=== PATIENT | male | born 1960 | race Caucasian/White ===

== ENCOUNTER 2023-12-19 06:12 | Inpatient (IN) ==
--- NOTE | 2023-12-10 10:15 | Anesthesiology Consultation ---
Date of Service December 10, 2023 Assessment & Plan (1) Encounter for pre-operative examination: - last Trulicity dose 12/10/23. Case discussed with Dr. Khan who is assigned anesthesiologist per schedule. He advised contacting Dr. Farrell regarding if procedure can be postponed until patient is 7 days from last dose or if he feels it needs to proceed as scheduled 12/16/23. Per Chey with Dr. Farrell's office, he advised procedure can be postponed several days and it is now being done 12/18/23. She states that she informed patient he is to hold Trulicity until procedure 12/18/23. - cardiology office visit 11/19/23 [facility]: "...At the time of the patient's recent visit, he had described episodes of snoring, witnessed by his spouse. He also notes some degree of daytime somnolence. Given his history of snoring, daytime somnolence, and now the diagnosis of atrial fibrillation, recommend proceeding with workup for obstructive sleep apnea. Patient was agreeable to proceeding with a home sleep study...12/29/2022 he had been seen in routine follow-up by primary care and was noted to have an irregular rhythm. EKG confirmed the presence of rate controlled atrial fibrillation. A Zio Patch was worn for 5 days at which time 100% atrial fibrillation burden observed, with average rate of 106 beats per minute...11/05/2023 he had not noticed any subjective symptoms. Afterward however he had been moving some firewood around when he was wearing the Zio patch in notice some chest tightness with exertion...feeling an irregular heart rhythm when he lays down to go to sleep at night...metoprolol succinate 25 milligrams daily as well as Eliquis 5 milligrams twice daily...notes no additional chest discomfort since starting the metoprolol...ventricular rate was mildly elevated especially with activity on his recent Zio patch, and he was since started metoprolol succinate. Continue metoprolol succinate. [id number] score is 3 for risk factors of age (he turns 64 in June), hypertension, and diabetes...tolerating the Eliquis well. Recommend proceeding with a trial of direct current cardioversion...intermittent chest discomfort with physical activity last month. Improved since the addition of metoprolol. This may have been related to atrial fibrillation with rapid ventricular response, but it off is concerning for perhaps on masking underlying coronary heart disease. Recommend proceeding with nuclear stress test. In his particular case given his development of atrial fibrillation believe a low intensity exercise/pharmacologic protocol would be suitable..." - Per development editor on 12/10/23: No known infectious disease contacts, current infectious disease symptoms in past 10 days or COVID positive test result in the past 30 days. Chart Review Chart Review: entry level marketing representative initiated History Surgery Operation Date: 12/16/23 07:15 Proposed Procedures p Cardioversion Freelance Photographer w/Anesthesia - Sylvester Farrell DO Height/Weight Height: 6 ft 1 in Weight: 106.594 kg Allergies Allergy/AdvReac Type Severity Reaction Status Date / Time Penicillins AdvReac Severe RASH A Verified 12/10/23 09:34 CHILD Medications Home Medications Medication Instructions Recorded Confirmed Last Taken MULTIPLE VITAMINS W/ MINERALS 1 tab PO DAILY ##0 12/13/13 12/10/23 Unknown (MULTI COMPLETE) apixaban 5 mg tablet (Eliquis) 5 mg PO BID 12/10/23 12/10/23 Unknown aspirin 81 mg capsule 81 mg PO DAILY 12/10/23 12/10/23 Unknown dulaglutide 1.5 mg/0.5 mL 0.75 mg subcut WK 12/10/23 12/10/23 Unknown subcutaneous pen injector (Trulicity) empagliflozin 25 mg tablet 25 mg PO QAM 12/10/23 12/10/23 Unknown (Jardiance) losartan 25 mg tablet 25 mg PO QAM 12/10/23 12/10/23 Unknown meloxicam 15 mg tablet 15 mg PO DAILY PRN Pain 12/10/23 12/10/23 Unknown metformin 1,000 mg tablet 1,000 mg PO BID 12/10/23 12/10/23 Unknown metoprolol tartrate 25 mg tablet 25 mg PO QAM 12/10/23 12/10/23 Unknown rosuvastatin 40 mg tablet 40 mg PO QAM 12/10/23 12/10/23 Unknown Past Medical History Medical History (Updated 12/10/23 @ 10:01 by Fatimah Walker PA-C) A-fib recent onset; follows w/ Dr Farrell Ascending aorta enlargement Chest discomfort intermittent, upcoming stress test ordered by S cardio 01/2024 Diabetes NIDDM Heart murmur since childhood History of colon cancer 1999- s/p colon resection and chemo History of COVID-19 2021- no hosp; resolved Hx of deep venous thrombosis 1999- after colon resection Suspected sleep apnea snoring, witnessed apneas, daytime somnolence-HST ordered by [facility] cardio Past Surgical History Surgical History History of colon resection 2000 Hx of colonoscopy Hx of rotator cuff surgery left Hx of squamous cell carcinoma excision lip Social History Smoking Status: Never smoker Do You Dip or Chew Tobacco: No Hx Alcohol Use: Yes alcohol intake frequency: a few times a month Hx Substance Use: No substance use type: does not use Testing Laboratory Results 11/05/2023 WBC: 5.2 H/H: PLATELETS: 192,000 10/22/23 SODIUM: 141 POTASSIUM: 4.7 CHLORIDE: 106 CO2: 24 BUN: 15 CREATININE: 0.8 GLUCOSE: 110 A1c: 7.1% 11/05/23 TSH: 2.9 Hepatic panel: WNL Electrocardiogram Date: 11/19/23 Afib, rate 72 bpm Echocardiogram Date: 01/06/23 EF 55-59% Normal LV wall motion Borderline cLVH Mild mitral regurgitation Mild tricuspid regurgitation Proximal ascending thoracic aorta mildly enlarged 4.3 cm Grade I diastolic dysfunction Stress Test Date: 10/23/18 Exercise METS 11 MPHR 99% Negative for inducible ischemia EF 55-59% Normal LV wall motion Mild cLVH Mild mitral regurgitation Aortic root is mildly enlarged at 3.8 cm Proximal ascending thoracic aorta is mildly enlarged at 4.3 cm Grade I diastolic dysfunction Other Testing vehicle monitor technician 10/28/23 Atrial Fibrillation occurred continuously (100% burden), ranging from 63- 194 bpm (avg of 106 bpm). Isolated VEs were rare (<1.0%), VE Couplets were rare (<1.0%), and no VE Triplets were present. No patient marker or diary entries were submitted
--- NOTE | 2023-12-18 19:44 | History & Physical Report ---
Date of Service December 18, 2023 Assessment & Plan (1) Persistent atrial fibrillation: Plan: * Patient presents for direct-current cardioversion. * Informed consent obtained, patient elects to proceed. History of Present Illness Primary Care Provider: Sylvester Farrell DO Mr Beaulieu had recently been found to be in atrial fibrillation and a recent routine appointment. He has been on Eliquis since prescribed on 11/11/2023, along with metoprolol. Arrangements were made for elective direct-current cardioversion with him having been on uninterrupted anticoagulation for over 4 weeks. History is notable for mild enlargement of the proximal ascending aorta, 4.[address] performed January,, 4.3 cm on echocardiogram December,, and he is due for a repeat CT scan in January, Allergies Allergy/AdvReac Type Severity Reaction Status Date / Time Penicillins AdvReac Severe RASH A Verified 12/10/23 09:34 CHILD Home Medications Medication Instructions Recorded Confirmed Type MULTIPLE VITAMINS W/ MINERALS 1 tab PO DAILY ##0 12/13/13 12/10/23 History (MULTI COMPLETE) apixaban 5 mg tablet (Eliquis) 5 mg PO BID 12/10/23 12/19/23 History aspirin 81 mg capsule 81 mg PO DAILY 12/10/23 12/10/23 History dulaglutide 1.5 mg/0.5 mL 0.75 mg subcut WK 12/10/23 12/10/23 History subcutaneous pen injector (Trulicity) empagliflozin 25 mg tablet 25 mg PO QAM 12/10/23 12/10/23 History (Jardiance) losartan 25 mg tablet 25 mg PO QAM 12/10/23 12/10/23 History meloxicam 15 mg tablet 15 mg PO DAILY PRN Pain 12/10/23 12/10/23 History metformin 1,000 mg tablet 1,000 mg PO BID 12/10/23 12/10/23 History metoprolol tartrate 25 mg tablet 25 mg PO QAM 12/10/23 12/10/23 History rosuvastatin 40 mg tablet 40 mg PO QAM 12/10/23 12/10/23 History Past Med/Surg History Medical History (Updated 12/18/23 @ 19:44 by Sylvester Farrell DO) Ascending aorta enlargement Chest discomfort intermittent, upcoming stress test ordered by S cardio 01/2024 Suspected sleep apnea snoring, witnessed apneas, daytime somnolence-HST ordered by [facility] cardio Hx of deep venous thrombosis 1999- after colon resection History of COVID-19 2021- no hosp; resolved Heart murmur since childhood Diabetes NIDDM A-fib recent onset; follows w/ Dr Farrell History of colon cancer 1999- s/p colon resection and chemo Surgical History Hx of squamous cell carcinoma excision lip Hx of rotator cuff surgery left Hx of colonoscopy History of colon resection 1999 Social History Smoking Status: Never smoker Second Hand Exposure: No; Do You Dip or Chew Tobacco: No; Tobacco Cessation Education Requested by Patient: No Hx Alcohol Use: Yes Hx Substance Use: No Preferred Language: Bengali Communication Ability: Effective Etymology Professor Required: No Beliefs That Will Affect Care: None Current Living Situation: Spouse Other Information That Helps Us Care for You: No Feels Safe at Home: Yes Safety Concerns: Feels Safe At This Time Assistive Devices: Glasses Physical Exam Physical Exam: Pulse Resp BP Pulse Ox O2 Del Method 121 H 14 120/80 97 Room Air 12/19/23 06:56 12/19/23 06:56 12/19/23 06:56 12/19/23 06:56 12/19/23 06:56 General: no acute distress and stated age Eyes: conjunctiva are pink and non-injected, sclera clear Neck: normal jugular venous pulse, no hepatojugular reflux Chest: normal shape and normal respiratory effort Lungs: clear to auscultation and percussion Cardiac Exam: -Irregular rhythm, no murmurs, rubs, or gallops, no jugular venous distention Abdomen: abdomen soft, non-tender, no abnormal masses and no hepatosplenomegaly Musculoskeletal: no gait disturbance, no weakness Extremities: no edema and no cyanosis Neuro:awake, conversant, follows commands, no focal motor deficits Psych: appropriate affect and insight. Results & Data Results & Data Laboratory Results 10/22/23 11:38 Sodium: 141 Potassium: 4.7 Chloride: 106 CO2: 24 BUN: 15 Creatinine: 0.8 Estimated Glomerular Filtration Rate: >90 Anion Gap: 11 Glucose: 110 Calcium: 9.6 Estimated Average Glucose: 157 (H) 11/05/23 11:00 WBC: 5.28 HGB: 15.3 HCT: 47.2 MCV: 95.7 PLT: 192 Diagnostic Findings Echocardiogram performed 12/2022 revealed normal LVEF in the range of 55 to 59%, mild mitral regurgitation
[2023-12-19] MEDS ORDERED: PROPOFOL IV EMULSION 10 MG/ML 20 ML VIAL IV ONE (06:54)
[2023-12-19] MEDS ORDERED: ePHEDrine sulfate 50 MG/ML AMP IV PRN (07:12)
[2023-12-19] MEDS ORDERED: ATROPINE SULFATE 0.1 MG/ML 10ML SYR IV PRN (07:12)
--- NOTE | 2023-12-19 07:20 | History & Physical Bridge Note ---
Date of Service December 19, 2023 History & Physical Bridge Note I have examined the patient, reviewed the History & Physical and in the interval since the performance of the History & Physical I have noted the following changes of clinical significance: no changes noted. Most recent Eliquis dose was last night at 10 pm. He denies any recent missed doses.
[2023-12-19] MEDS ORDERED: APIXABAN 5 MG TABLET PO ONE (07:30)
--- NOTE | 2023-12-19 07:34 | Post Operative Brief Note ---
Cardiology Brief Post Op Date of Surgery December 19, 2023 Pre & Post Diagnosis Operation Date: 12/19/23 07:15 Procedure Preprocedure diagnosis: Persistent atrial fibrillation Postprocedure diagnosis: Unsuccessful direct-current cardioversion Direct-current cardioversion procedure: After informed consent was obtained a timeout was performed the patient was sedated at the assistance of the anesthesia service. The patient received a total of 3 countershocks of 200 J, 250 J, and 300 J respectively which were unsuccessful and the patient remained in atrial fibrillation. Plan: Continue anticoagulation with Eliquis and metoprolol. Will discuss options including consideration of rate control and anticoagulation or considering antiarrhythmic therapy. Acetylene Cylinder Packing Mixer Sylvester Farrell DO Isolation Washer none Estimated Blood Loss 0 Findings Consistent with Post-Op Diagnosis Anesthesia Type MAC Complications none
--- NOTE | 2023-12-19 07:55 | Anesthesiology Progress Note ---
Date of Service December 19, 2023 Anesthesia Post Procedure Vital Signs Vital Signs: Pulse Resp BP Pulse Ox O2 Del Method 12/19/23 06:56 121 H 14 120/80 97 Room Air Transfer of Care Handoff Completed per policy Notes Mental Status: alert / awake / arousable and participated in evaluation Patient Amnestic to Procedure: Yes Nausea / Vomiting: adequately controlled Pain: adequately controlled Airway Patency, RR, SpO2: stable & adequate BP & HR: stable & adequate Hydration State: stable & adequate Anesthetic Complications: no major complications apparent and Pt Satisfied with anesthetic care
--- NOTE | 2023-12-19 09:01 | Communication Note ---
Date of Service: December 19, 2023 Patient underwent cardioversion, has remained in atrial fibrillation despite 3 countershocks. After discussion with the patient and his spouse, Everardo, patient would prefer to stay in the hospital for antiarrhythmic medication initiation. Options include sotalol or dofetilide. His most recent chemistry panel performed a month ago revealed normal kidney function, estimated GFR by the modified Cockcroft-Gault formula is 139.86 mL/min. EKG performed today post cardioversion revealed atrial fibrillation at 77 bpm with corrected QT interval 423 ms Plan: I contacted admissions and requested a telemetry bed, indication, symptomatic atrial fibrillation, need for initiation of antiarrhythmic therapy I have called the patient's outpatient pharmacy, [facility], and the pharmacist is helping determine the patient's [id number] cost for dofetilide.
[2023-12-19] MEDS ORDERED: PHARMACY GLYCEMIC MGMT CONSULT PRN (09:33)
[2023-12-19] MEDS ORDERED: SILVER SULFADIAZINE 1% CR 50 GM JAR EXT ONE (09:40)
[2023-12-19] MEDS ORDERED: EMPAGLIFLOZIN 25 MG TAB PO SCH (09:45)
[2023-12-19 09:55] LABS: Hematocrit (blood only) 46.8 % (42.0-52.0); Hemoglobin 15.3 g/dl (14.0-18.0); Mean Corpuscular Hemoglobin 30.1 pg (25.0-34.0); Mean Corpuscular Hgb Conc 32.7 g/dL (32.0-36.0); Mean Corpuscular Volume 91.9 fL (80.0-100.0); Mean Platelet Volume 9.8 fL (9.4-12.4); Platelet Count 170 K/uL (130-400); RDW Standard Deviation 43.3 fL (36.4-46.3); Red Blood Count 5.09 M/uL (4.70-6.10); White Blood Count 5.06 K/ul (4.8-10.8)
[2023-12-19 10:21] LABS: INR 0.9 (0.9-1.1); Partial Thromboplastin Ratio 1.1; Partial Thromboplastin Time 30 Seconds (21-31); Prothrombin Time 10.4 Seconds (9.0-12.0)
[2023-12-19] MEDS ORDERED: GLUCOSE 10 TAB/TUBE PO PRN (11:30)
[2023-12-19] MEDS ORDERED: CARBOHYDRATES FOR HYPOGLYCEMIA PO PRN (11:30)
[2023-12-19] MEDS ORDERED: GLUCOSE 40% GEL 15 GM TUBE PO PRN (11:30)
[2023-12-19] MEDS ORDERED: GLUCAGON FOR INJ 1 MG VIAL IM PRN (11:30)
[2023-12-19] MEDS ORDERED: DEXTROSE 50% 50 ML SYRINGE IV PRN (11:30)
[2023-12-19 11:57] LABS: Albumin Globulin Ratio 1.8 (0.9-2); Albumin Level 4.1 gm/dl (3.4-5.0); Bilirubin,Total 0.5 mg/dl (0.2-1.0); Calcium 9.3 mg/dl (8.6-10.3); Creatinine Clr Calc Pharmacy 105.1 ml/min; Est GFR (African American) 102.9 ml/min; Est GFR (Non-African American) 88.8 ml/min; Globulin 2.3 gm/dl (2.5-4.0); Potassium 4.7 mmol/L (3.5-5.1); Total Protein 6.4 gm/dl (6.0-8.3)
[2023-12-19] MEDS ORDERED: DOFETILIDE 125 MCG CAPSULE PO STA (12:00)
--- NOTE | 2023-12-19 12:00 | Communication Note ---
Date of Service: December 19, 2023 I called the patient's outpatient pharmacy and the [id number] cost for dofetilide is affordable for the patient. Lab work within normal limits with normal magnesium level, normal kidney function. As previously noted, corrected QT interval within normal limits. Proceed with dofetilide 500 mcg first dose now, with repeat EKG 2 hours after first dose.
[2023-12-19] MEDS: ROSUVASTATIN CALCIUM 20 MG TAB PO SCH (12:15)
[2023-12-19] MEDS: LOSARTAN POTASSIUM 25 MG TAB PO SCH (12:16)
[2023-12-19] MEDS: ASPIRIN 81 MG ECTAB PO SCH (12:16)
[2023-12-19] MEDS: METOPROLOL TARTRATE 25 MG TAB PO SCH (12:17)
[2023-12-19] MEDS: INSULIN ASPART PER UNIT CHARGE SC SCH ×3 (12:22→20:35)
--- NOTE | 2023-12-19 12:51 | Pharmacy Report ---
Pharmacy Glycemic Short Note 2 - Date of Service December 19, 2023 - Glycemic Short BSG Results (Last 24 hours): 12/19/23 12/19/23 09:36 11:22 Glucose 136 H POC Glucose 171 H OUTPATIENT ANTIDIABETIC REGIMEN: * Trulicity 0.75 mg weekly, empagliflozin 25 mg daily * A1c pending ASSESSMENT: * Mr. Beaulieu is admitted for initiation of dofetilide after remaining in A. fib following cardioversion attempt. Will begin novolog with weight based parameters between stress of 1 and 2. * Lantus to be added if BSGs trend upward, will add scale. * Overnight checks. PLAN FOR INPATIENT GLYCEMIC CONTROL: * Hold outpatient oral diabetes medications * Basal insulin * Lantus 0/10/20 units SQ x1 * Bolus insulin * NovoLog per scale ACHS or Q6hrs while NPO * Goal Range: Low 110 mg/dL - High 140 mg/dL * Correction Factor: 30 mg/dL/unit * Nutritional / Prandial insulin per carb ratio of 1 unit per 10 grams CHO consumed
--- NOTE | 2023-12-19 14:18 | Consultation ---
Date of Consultation December 19, 2023 Assessment & Plan (1) Persistent atrial fibrillation: (2) DMII (diabetes mellitus, type 2): (3) HLD (hyperlipidemia): (4) Hx of squamous cell carcinoma: (5) Osteoarthritis, hand: (6) B12 deficiency: Plan Pt is a 63yoM with PMHx significant for persistent atrial fibrillation, DMII, HLD, colon cancer s/p partial colectomy and chemotherapy, Hx of SCC of lower lip, B12 deficiency and OA of the hands admitted for direct-current cardiove rsion of his atrial fibrillation. Persistent Atrial Fibrillation Per pt, diagnosed at a routine pcp appt about a month ago Followed up with cardiology and is presenting for cardioversion s/p unsuccessful cardioversion on 12/19/23 Subsequently started on Tikosyn by Cardiology, also on metoprolol tartrate 25mg daily Anticoagulation with Eliquis 5mg BID Further management by Cardiology/primary team DMII Pt on Trulicity, Jardiance and metformin at home Hold home meds AM [id number] pending Basal with ISS insulin regimen while hospitalized -started on basal glargine 5mg BID, can titrate up as needed -ISS with aspart, CF 40, CR 14, goal glucose 100-140 Pt notes he is on ARB for renoprotection in the setting of DMII, (NOT HTN, states never had this dx) Continue home losartan HLD Continue statin Hx of colon cancer s/p partial colectomy and chemotherapy per pt Diagnosed in 1999, completed treatment in 2020 States he undergoes surveillance with a colonoscopy [id number] Due for f/u in 2023, no noted issues since Hx of SCC of lower lip Dx about 7 yrs ago per pt Stable Hx of b12 deficiency On multivitamin with b12 AM b12 level pending Hand OA On meloxicam PRN at home Holding PRN tylenol ordered DVT prophylaxis: On Eliquis Diet:HH/DMII CODE STATUS: Full code Dispo: per primary team Thank you for this consultation. We will follow the patient with you during their hospital stay. You can reach a member of the [facility] Hospitalist Team 09/06 via the hospitalist role on tiger text. History of Present Illness Requesting Physician: Sylvester Farrell DO Reason for Consultation: Atrial Fibrillation, DMII co-management Attending Physician: Sylvester Farrell DO History of Present Illness Pt is a 63yoM with PMHx significant for persistent atrial fibrillation, DMII, HLD, colon cancer s/p partial colectomy and chemotherapy, Hx of SCC of lower lip, B12 deficiency and OA of the hands admitted for direct-current cardioversion of his atrial fibrillation. Hx obtained from patient and who is sitting at bedside. He states that he was at a routine visit with his pcp some time before Hasmukh when he was noted to be in atrial fibrillation. States he did not have symptoms at that time. Was referred to Cardiology and was admitted for cardioversion. He had the cardioversion done today but it was unsuccessful after 3 shocks. Has been started on the medication Tikosyn and is undergoing further monitoring. He denies any symptoms at this time. States he has been eating and drinking and tolerating food well. Allergies Allergy/AdvReac Type Severity Reaction Status Date / Time Penicillins AdvReac Severe RASH A Verified 12/10/23 09:34 CHILD Home Medications Medication Instructions Recorded Confirmed Type MULTIPLE VITAMINS W/ MINERALS 1 tab PO DAILY ##0 12/13/13 12/19/23 History (MULTI COMPLETE) apixaban 5 mg tablet (Eliquis) 5 mg PO BID 12/10/23 12/19/23 History aspirin 81 mg capsule 81 mg PO DAILY 12/10/23 12/19/23 History dulaglutide 1.5 mg/0.5 mL 1.5 mg subcut WK 12/10/23 12/19/23 History subcutaneous pen injector (Trulicity) empagliflozin 25 mg tablet 25 mg PO QAM 12/10/23 12/19/23 History (Jardiance) losartan 25 mg tablet 25 mg PO QAM 12/10/23 12/19/23 History meloxicam 15 mg tablet 15 mg PO DAILY PRN Pain 12/10/23 12/19/23 History metformin 1,000 mg tablet 1,000 mg PO BID 12/10/23 12/19/23 History metoprolol tartrate 25 mg tablet 25 mg PO QAM 12/10/23 12/10/23 History rosuvastatin 40 mg tablet 40 mg PO QAM 12/10/23 12/19/23 History Patient History Medical History (Updated 12/19/23 @ 18:14 by Deena Diaz MD) Ascending aorta enlargement Chest discomfort intermittent, upcoming stress test ordered by S cardio 01/2024 Suspected sleep apnea snoring, witnessed apneas, daytime somnolence-HST ordered by [facility] cardio Hx of deep venous thrombosis 1999- after colon resection History of COVID-19 2021- no hosp; resolved Heart murmur since childhood Diabetes NIDDM A-fib recent onset; follows w/ Dr Farrell History of colon cancer 1999- s/p colon resection and chemo Surgical History Hx of squamous cell carcinoma excision lip Hx of rotator cuff surgery left Hx of colonoscopy History of colon resection 1999 Social History Smoking Status: Never smoker Second Hand Exposure: No; Do You Dip or Chew Tobacco: No; Tobacco Cessation Education Requested by Patient: No Hx Alcohol Use: Yes Hx Substance Use: No Preferred Language: Barbadian Communication Ability: Effective Motor Driver Required: No Beliefs That Will Affect Care: None Current Living Situation: Spouse Other Information That Helps Us Care for You: No Feels Safe at Home: Yes Safety Concerns: Feels Safe At This Time Assistive Devices: Glasses Review of Systems Review of Systems: All systems reviewed & are unremarkable except as noted in HPI & below Physical Exam Physical Exam: General: Alert, oriented. No acute distress Skin: No noted rashes or bruises Psych: Appropriate mood and affect Neuro: No gross deficits HEENT: NC/AT CV: Irregular rate and rhythm Resp: Breath sounds clear bilaterally, no increased effort of breathing. Abdomen: Soft, nontender, nondistended. No guarding. No organomegaly appreciated. Extremities: No edema in lower extremities bilaterally. Results & Data Vital Signs (Past 12 Hours) Vital Signs Temp Pulse Pulse Resp BP BP Pulse Ox 12/19/23 13:45 99 H 18 12/19/23 13:30 88 16 12/19/23 13:30 117/81 12/19/23 13:15 82 16 12/19/23 13:15 115/81 12/19/23 13:00 82 16 12/19/23 13:00 109/80 12/19/23 13:00 37.1 C 12/19/23 12:45 78 17 12/19/23 12:30 89 19 12/19/23 12:30 114/70 12/19/23 12:15 100/76 12/19/23 12:15 94 H 17 12/19/23 12:00 93 H 12 12/19/23 12:00 123/88 12/19/23 11:45 90 11 L 12/19/23 11:45 122/78 12/19/23 11:30 97 H 21 12/19/23 11:30 120/84 12/19/23 11:15 129/75 12/19/23 11:15 92 H 13 12/19/23 11:03 92 H 16 12/19/23 11:03 109/82 12/19/23 11:00 12/19/23 11:00 36.7 C 93 H 20 109/82 97 12/19/23 11:00 78 12/19/23 11:00 36.7 C 12/19/23 09:30 82 14 152/90 H 96 12/19/23 08:30 82 14 152/90 H 96 12/19/23 08:15 82 14 152/90 H 96 12/19/23 08:00 75 14 150/90 H 96 12/19/23 07:45 87 14 152/90 H 96 12/19/23 06:56 121 H 14 120/80 97 O2 Del Method 12/19/23 13:45 12/19/23 13:30 12/19/23 13:30 12/19/23 13:15 12/19/23 13:15 12/19/23 13:00 12/19/23 13:00 12/19/23 13:00 12/19/23 12:45 12/19/23 12:30 12/19/23 12:30 12/19/23 12:15 12/19/23 12:15 12/19/23 12:00 12/19/23 12:00 12/19/23 11:45 12/19/23 11:45 12/19/23 11:30 12/19/23 11:30 12/19/23 11:15 12/19/23 11:15 12/19/23 11:03 12/19/23 11:03 12/19/23 11:00 Room Air 12/19/23 11:00 Room Air 12/19/23 11:00 12/19/23 11:00 12/19/23 09:30 Room Air 12/19/23 08:30 Room Air 12/19/23 08:15 Room Air 12/19/23 08:00 Room Air 12/19/23 07:45 Room Air 12/19/23 06:56 Room Air
--- NOTE | 2023-12-19 14:36 | Communication Note ---
Date of Service: December 19, 2023 Repeat EKG performed 2 hours after first dose of dofetilide, 500 mcg. Ongoing atrial fibrillation observed with QT interval of 444 ms, stable compared to previous of 423 ms. This increases less than 15% and we will therefore continue dofetilide 500 mcg every 12 hours, next dose due at 9 AM on. Serial EKG orders placed to be 11 AM and 2302 hours after each dose of dofetilide. The patient medication instruction information sheet with regards to Tikosyn/dofetilide was provided to patient. Patient educated with regards to need to avoid avoid taking medications that would prolong the QT interval when combined with Tikosyn/dofetilide.
--- OUTSIDE RECORDS SUMMARY | 2023-12-19 15:36 | External Medical Summary | Summary of Care ---
Author Name Unknown Organization [facility] Address [address] [facility] [address] Phone [phone] Care Team Providers Care Metal Precision Machine Assembler Name Role Phone Roscoe Hookison Yissel AGUILLON Primary Care Provider [phone] Encounter Details Date Type Department Care Team (Late st Contact Info) Description 12/10/2023 Telephone Cardiology, [facility] [address] [place] [address] Sylvester Farrell DO [address] [place] [address] Allergies Active Allergy Reactions Criticality Noted Date Comments Lisinopril Cough Medium 08/04/2014 Penicillins 11/30/2010 documented as of this encounter (statuses as of 12/10/2023) Medications Medication Sig Dispensed Refills Start Date End Date Status ASPIRIN 81 MG PO TABS one tablet daily 0 Active triamcinolone acetonide (ARISTOCORT) 0.1 % creamIndications:Dry skin Apply topically to affected area 2 times a day. To affected area. 15 g 5 10/08/2017 Active Ketoconazole 2 % cream Apply topically to affected area as needed for Itching. 15 g 1 07/06/2020 Active Centrum Silver 50+Men Oral Tablet Take by mouth. 0 Active OneTouch Ultra Blue In Vitro Strip (Glucose Blood)Indications:Typ e 2 diabetes mellitus with hemoglobin A1c goal of less than 7.0% ([facility]) Test blood sugar up to three times daily as directed 300 Strip 3 08/29/2022 Active OneTouch Delica Plus [id number]: Type 2 diabetes mellitus with hemoglobin A1c goal of less than 7.0% (HCC) Use to test blood glucose directed 3 times daily daily 300 Each 3 08/29/2022 Active metFORMIN HCl 1000 MG Oral Tablet (Glucophage)Indicatio ns:Type 2 diabetes mellitus with hemoglobin A1c goal of less than 7.0% (HCC) TAKE ONE TABLET BY MOUTH TWICE DAILY WITH MEALS.( MORNING AND EVENING MEALS) 180 Tablet 3 12/09/2022 Active Jardiance 25 MG Oral Tablet (Empagliflozin)Indica tions:Type 2 diabetes mellitus with hemoglobin A1c goal of less than 7.0% (HCC) TAKE 1 TABLET BY MOUTH ONCE DAILY 90 Tablet 3 05/10/2023 Active Meloxicam 15 MG Oral TabletIndications:Marija lio osteoarthritis of first carpometacarpal joint of left hand Take 1 Tablet by mouth in the morning. for pain.. 90 Tablet 3 05/12/2023 Active Losartan Potassium 25 MG Oral Tablet (Cozaar)Indications:D yslipidemia, goal LDL below 70,Ascending aorta enlargement (HCC) Take 1 Tablet by mouth in the morning. 90 Tablet 1 07/14/2023 Active Rosuvastatin Calcium 40 MG Oral Tablet (Crestor)Indications: Dyslipidemia, goal LDL below 70,Ascending aorta enlargement (HCC) Take 1 Tablet by mouth in the morning. 90 Tablet 1 07/14/2023 Active Dulaglutide 1.5 MG/0.5ML Subcutaneous Solution Pen-injector (Trulicity)Indication s:Type 2 diabetes mellitus with hemoglobin A1c goal of less than 7.0% (HCC) Inject 1.5 mg under the skin once a week. 6 mL 3 10/28/2023 Active Clindamycin HCl 150 MG Oral Capsule (Cleocin) As needed for dental procedures 0 10/21/2023 Active Metoprolol Succinate ER 25 MG Oral Tablet Extended Release 24 Hour (toPROL XL) Take 1 Tablet by mouth in the morning. 30 Tablet 5 11/11/2023 Active Apixaban 5 MG Oral Tablet (Eliquis) Take 1 Tablet by mouth in the morning and 1 Tablet before bedtime. 180 Tablet 3 11/11/2023 Active documented as of this encounter (statuses as of 12/10/2023) Active Problems Problem Noted Date Diagnosed Date Type 2 diabetes mellitus with diabetic polyneuro rosetta 08/29/2022 B12 deficiency 02/25/2022 Primary osteoarthritis of fi rst carpometacarpal joint of left hand 07/06/2020 Hx of squamous cell carcinoma of skin 03/23/2020 Ascending aorta enlargement 12/20/2019 Dilated aortic root 12/20/2019 Obesity, Class I, BMI 30.0-34.9 (see actual BMI) 04/06/2014 Type 2 diabetes mellitus wit h hemoglobin A1c goal of less than 7.0% 02/03/2014 Overview: ICD-10 update of inactive term Dermatofibroma of right lower leg 07/21/2012 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 10/21/2010 Dyslipidemia, goal LDL below 70 documented as of this encounter (statuses as of 12/10/2023) Resolved Problems Problem Noted Date Diagnosed Date Resolved Date Screening PSA (prostate specific antigen) 01/17/2021 01/17/2021 Encounter for long-term (cur rent) use of medications 06/17/2019 08/29/2022 Overview: Metformin Lip lesion 07/15/2018 10/09/2018 Thrush 06/18/2018 10/09/2018 Supraspinatus tendinitis, left 06/18/2018 10/09/2018 Dyslipidemia 06/05/2018 06/17/2019 Asthma, mild persistent 06/12/201505/18 Supraspinatus tendinitis 06/12/2015 Asthma, mild persistent 02/09/201505/18 Nevus 10/12/2014 06/12/2015 Overview: 0.5 cm lesion of right earlobe - excisonal biopsy with desruction after 10/07/14 Earlobe lesion 10/07/2014 10/12/2014 Overview: 0.5 cm lesion of right earlobe - excisonal biopsy with desruction after 10/07/14 Deltoid bursitis 06/06/2014 06/12/2015 Overview: right shoulder Dyslipidemia, goal LDL below 70 04/06/2014 06/05/2018 Elevated glucose 02/02/2014 04/06/2014 Dry skin 02/02/2014 06/05/2018 Tendinitis of thumb 02/02/2014 04/06/20 14 Overview: Left Bronchitis, complicated 08/03/201301/15 Obesity, Class I, BMI 30.0-3 4.9 (see actual BMI) 02/11/2012 04/06/2014 LUMBAR DISC DISEASE WITH S1 NERVE ROOT PAIN (RESOLVED) 02/12/2011 08/12/2012 LUMBAR DISC DISEASE WITH S1 NERVE ROOT PAIN 01/29/2011 02/12/2011 NEVI OF CHEST WALL AND SCALP S/P REMOVAL 11/2712/26/19 11 08/12/2012 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 10/21/2010 10/27/2018 II A HLP (goal LDL below 130) 10/21/2010 04/06/2014 DVT S/P CHEMO 2000 10/21/2010 2 PULMONARY EMBOLUS S/P CHEMO 2000 10/21/2010 08/12/2012 Screening for prostate cancer 10/21/2010 01/29/2011 documented as of this encounter (statuses as of 12/10/2023) Immunizations Name Administration Dates Next Due COVID-19 mRNA, LNP-s, No Pre serve, 2-Dose Series (Stellarcasa SA) 07/05/2022,09/24/2021,02/03/2021,12/19 Hepatitis B, 20+ yrs 02/09/2015,10/07/2014,06/06 Pneumococcal Conjugate Vacci ne, 20-valent ([id number]) 04/10/2023 Pneumococcal Polysaccharide PPV23 (Pneumovax) 06/06/2014 Seasonal Influenza Virus Vac cine, Unspecified Formulation 09/11/2021 Seasonal Influenza, PF, 6 M & above, IM , (FluLaval or Fluzone) 08/09/2022,08/17/2020,08/31/2019,08/17 Seasonal Influenza, Split, I IV3, With Preserve, Inj 08/31/2017,09/03/2016,08/05/2015,08/17,08/31/2013,08/31/2012,09/05/20 11,08/31/2010 09/02/2015 TDAP (age 10 and older)(Boostrix) 10/28/2023, Zoster Vaccine Recombinant (Shingrix) 11/27/2020 ,09/18/2020 documented as of this encounter Social History Tobacco Use Types Packs/Day Years Used Date Smoking Tobacco: Never Smokeless Tobacco: Former Snuff Quit: 11/30/1987 Alcohol Use Standard Drinks/Week Comments Yes 0 (1 standard drink = 0.6 oz pur e alcohol) rarely PHQ-2 Answer Date Recorded PHQ Adult Total Score 0 04/10/2023 Hunger Vital Sign Answer Date Recorded Within the past 12 months, y ou worried that your food would run out before you got the money to buy more. Never true 04/10/20 23 Within the past 12 months, t he food you bought just didn't last and you didn't have money to get more. Never true 04/10/2023 Sex and Gender Information Value Date Recorded Sex Assigned at Male 04/10/2023 11:00 AM EDT Gender Identity Male 04/10/2023 11:00 AM EDT Sexual Orientation Straight 04/10/2023 11 :00 AM EDT Job Start Date Occupation Industry Not on file Not on file Not on file documented as of this encounter Miscellaneous Notes * Telephone Encounter - Chey Perez LPN - 12/10/2023 10:08 AM EST Spoke with Dr Farrell via tiger text. Patient rescheduled for DCCV on 12/18/23 @ 745am at [facility]. Patient wasa advised to hold trulicity until after procedure * Telephone Encounter - Chey Perez LPN - 12/10/2023 9:51 AM EST Patient currently scheduled for Cardioversion on 12/16/23 at [facility]. [place] pre anesthesia calling asking for recommendation for procedure from Dr Farrell, patient took Trulicity this morning. Now recommended that patients hold Trulicity for 1 week prior to procedure. [facility] recommending to postpone procedure unless otherwise stated by physician documented in this encounter Plan of Treatment Upcoming Encounters Date Type Department Care Team (Late st Contact Info) Description 01/20/2024 10:30 AM EST Cardiac Studies [address] Studies [address] [place] [address] 01/22/2024 8:00 AM EST Imaging [facility] 2nd Floor Cardiology, [place] [address] [place] [address] Gw, Excess Time Radiology [address] [place] [address] 03/08/2024 11:30 AM EDT Office Visit Cardiology, [facility] [address] [place] [address] Sylvester Farrell, [address] [place] [address] 03/30/2024 8:00 AM EDT Office Visit Pharmacy [address], [place] [address] [place] [address] Sonia, [facility] [address] [place] [address] 04/29/2024 12:00 PM EDT Office Visit Family Practice [address], [place] [address] [place] [address] Hayes Pierre PA-C [address] [place] [address] Health Maintenance Due Date Last Done Comments COVID-19 Vaccine ( season) 2023 07/05/2022, 09/24/2021, 02/03/2021, Additional history exists Influenza Vaccine (FLU shot) (#1) 2023 08/09/2022, 09/11/2021, 08/17/2020, Additional history exists Albumin/Creatinine Ratio 04/04/2024 023, 08/23/2022, 02/13/2022, Additional history exists B-12 04/04/2024 04/04/2023, 10/05/2022, 02/13/2022, Additional history exists Depression Screening 04/10/2024 04/10/2023, 06/17/20 16 Diabetic Foot Exam 04/10/2024 04/10/2023, 0 08/16/2021, 07/06/2020, Additional history exists Diabetic Eye Exam 04/11/2024 04/11/2023, , 03/28/2021, Additional history exists HbA1c 04/22/2024 10/22/2023, 03/17, 08/23/2022, Additional history exists COLONOSCOPY-EVERY 3 YRS AGES 18-100 06/12/2024 06/12/2021, 01/27/2018, 11/01/2014, Additional history exists GFR 10/22/2024 10/22/2023, 03/17, 08/23/2022, Additional history exists Lipid Panel 10/22/2028 10/22/2023, 03/17, 08/23/2022, Additional history exists DTaP,Tdap,and Td Vaccines (3 - Td or Tdap) 10/28/2033 10/28/2023, 08/03/2013 Hepatitis B Completed 02/09/2015, 09/18, 06/06/2014 Zoster Vaccines Completed 11/27/2020, 09/18/2020 Pneumococcal Vaccine: Pediatrics (0 to 5 Years) and At-Risk Patients (6 to 64 Years) Completed 04/10/2023, 06/06/2014 GARDASIL-HPV IMMUNIZATION SERIES Aged Out No longer eligible based on patient's age to complete this topic MENINGOCOCCAL (MENACTRA/MENVEO) Aged Out No longer eligible based on patient's age to complete this topic documented as of this encounter Medical Devices Implanted Type Area Fly Maker Device Identifier Shelf Expiration Date Model / Serial / Lot Biocomposite Swivelock Suture [place] Implanted:Qty: 2 on 11/18/2018 by Panchito Wright DO at OR [facility] Left: Shoulder 12/17/2019 [id number] / / [id number] documented as of this encounter Care Teams Metal Precision Machine Assembler Relationship Specialty Start Date End Date Angelique Hook DO PCP - General Family Medicine 02/26/22 documented as of this encounter
--- OUTSIDE RECORDS SUMMARY | 2023-12-19 15:36 | External Medical Summary | Summary of Care ---
Author Name Unknown Organization [facility] Address [address] [place] [address] Phone [phone] Care Team Providers Care Distribution Driver Name Role Phone Hook, Angelique Barryvarghese Primary Care Provider [phone] Encounter Details Date Type Department Care Team (Late st Contact Info) Description 11/11/2023 Telephone Family Practice [address] [place] [address] Hayes Pierre PA-C [address] [place] [address] Allergies Active Allergy Reactions Criticality Noted Date Comments Lisinopril Cough Medium 08/04/2014 Penicillins 11/30/2010 documented as of this encounter (statuses as of 11/11/2023) Medications Medication Sig Dispensed Refills Start Date [...] hemoglobin A1c goal of less than 7.0% ([facility]) Test blood sugar up to three times daily as directed 300 Strip 3 08/29/2022 Active OneTouch Delica Plus [id number]: Type 2 diabetes mellitus with hemoglobin A1c [...] as of this encounter (statuses as of 11/11/2023) Active Problems Problem Noted Date Diagnosed Date [...] as of this encounter (statuses as of 11/11/2023) Resolved Problems Problem Noted Date Diagnosed Date [...] as of this encounter (statuses as of 11/11/2023) Immunizations Name Administration Dates Next Due COVID-19 mRNA, LNP-s, No Pre serve, 2-Dose Series (Shopeando) 07/05/2022,09/24/2021,02/03/2021,12/19 Hepatitis B, 20+ yrs 02/09/2015,10/07/2014,06/06 Pneumococcal Conjugate Vacci ne, 20-valent ([id number]) 04/10/2023 Pneumococcal Polysaccharide PPV23 (Pneumovax) 06/06/2014 Seasonal [...] encounter Miscellaneous Notes * Telephone Encounter - Priscilla Mullen LPN - 11/11/2023 3:32 PM EST Spoke with pt , confirmed pt had spoken with cardiology and was just started on Eliquis and Metoprolol today. * Telephone Encounter - Hayes Pierre PA-C - 11/11/2023 3:13 PM EST Aware of these findings. 100% AFib with average rate just above 100 beats per minute. He was completely asymptomatic at the time of my last visit. Okay to wait until he sees installment agent next week. Please just confirm that he has started an anticoagulant. documented in this encounter Plan of Treatment Upcoming Encounters Date Type Department Care Team (Late st Contact Info) Description 11/19/2023 10:00 AM EST Office Visit Cardiology, [facility] [address] [facility] [place] [address] Sylvester Farrell, [address] [facility] [place] [address] 01/20/2024 10:30 AM EST Cardiac Studies Cardiac Studies [place] [address] [place] [address] 03/08/2024 11:30 AM EDT Office Visit Cardiology, [facility] [address] [place] [address] Sylvester Farrell, [address] [place] [address] 03/30/2024 8:00 AM EDT Office Visit Pharmacy [place] [address] [place] [address] Sonia, [facility] [address] [place] [address] 04/29/2024 12:00 PM EDT Office Visit [facility] [place] [address] [place] [address] Hayes Pierre PA-C [address] [place] [address] Health Maintenance Due Date Last Done Comments COVID-19 Vaccine ( season) 2023 07/05/2022, 09/24/2021, 02/03/2021, Additional history exists Influenza Vaccine (FLU shot) (#1) 2023 08/09/2022, 09/11/2021, 08/17/2020, Additional history exists Albumin/Creatinine Ratio 04/04/2024 023, 08/23/2022, 02/13/2022, Additional history exists B-12 04/04/2024 04/04/2023, 1005/2022, 02/13/2022, Additional history exists Depression Screening 04/10/2024 [...] this encounter Medical Devices Implanted Type Area Event Executive Device Identifier Shelf Expiration Date Model / Serial / Lot Biocomposite Swivelock Suture [place] Implanted:Qty: 2 on 11/18/2018 by Panchito Wright DO at OR [facility] Left: Shoulder 12/17/2019 [id number] / / [id number] documented as of this encounter Care Teams Distribution Driver Relationship Specialty Start Date End Date Angelique Hook DO PCP - General Family Medicine 02/26/22 documented as of this encounter
--- OUTSIDE RECORDS SUMMARY | 2023-12-19 15:36 | External Medical Summary | Summary of Care ---
Author Name Unknown Organization [facility] Address [address] [place] [address] Phone [phone] Care Team Providers Care Watch And Clock Maker And Repairer Name Role Phone HookRoscoeAngelique Yissel AGUILLON Primary Care Provider [phone] Reason for Referral * Precert (Within 10 days (routine)) - Pending Review Specialty Diagnoses / Procedures Referred By Destiney alexander Referred To Contact Radiology Diagnoses Persistent atrial fibrillation (HCC) Chest pain, unspecified type Procedures NM MYOCARD PERF IMG SPECT MULT STUDIES WITH PHARM INTERV Sylvester Farrell DO [address] [place] [address] Referral ID Status Reason Start Date Expiration Date Visits Requested Visits Authorized [id number] Pending Review Precert 11/19/2023 999 999 Reason for Visit * Reason Comments Follow Up Encounter Details Date Type Department Care Team (Late st Contact Info) Description 11/19/2023 10:00 AM EST Office Visit Cardiology, [facility] [address] [place] [address] Sylvester Farrell DO [address] [place] [address] Persistent atrial fibrillation (HCC)*; Ascending aorta enlargement (HCC); HTN, goal below 130/80; Aortic valve sclerosis; Dyslipidemia, goal LDL below 70; Chest pain, unspecified type; Snoring; Obstructive sleep apnea syndrome Allergies Active Allergy Reactions Criticality Noted Date Comments Lisinopril Cough Medium 08/04/2014 Penicillins 11/30/2010 documented as of this encounter (statuses as of 11/19/2023) Medications Medication Sig Dispensed Refills Start Date [...] A1c goal of less than 7.0% (HCC) Test blood sugar up to three times daily as directed 300 Strip 3 08/29/2022 Active OneTouch Delica Plus [id number]: Type 2 diabetes mellitus with hemoglobin A1c [...] as of this encounter (statuses as of 11/19/2023) Active Problems Problem Noted Date Diagnosed Date [...] as of this encounter (statuses as of 11/19/2023) Resolved Problems Problem Noted Date Diagnosed Date [...] as of this encounter (statuses as of 11/19/2023) Immunizations Name Administration Dates Next Due COVID-19 mRNA, LNP-s, No Pre serve, 2-Dose Series (TUBE) 07/05/2022,09/24/2021,02/03/2021,12/19 Hepatitis B, 20+ yrs 02/09/2015,10/07/2014,06/06 Pneumococcal Conjugate Vacci ne, 20-valent ([id number]) 04/10/2023 Pneumococcal Polysaccharide PPV23 (Pneumovax) 06/06/2014 Seasonal [...] on file documented as of this encounter Last Filed Vital Signs Vital Sign Reading Time Taken Comments Blood Pressure 122/84 11/19/2023 9:56 AM EST Pulse 72 11/19/2023 9:56 AM EST Temperature - - Respiratory Rate 18 11/19/2023 9:56 AM EST Oxygen Saturation - - Inhaled Oxygen Concentration - - Weight 106.6 kg (235 lb) 11/19/2023 9:56 AM EST Height - - Body Mass Index 30.58 10/28/2023 9:43 AM EST documented in this encounter Progress Notes * Sylvester Farrell, DO - 11/19/2023 10:12 AM EST 11/19/2023 Cardiology Follow Up CHIEF COMPLAINT: Follow up, recent diagnosis of atrial fibrillation SUBJECTIVE: Buster Beaulieu is a 63 year old year old male who had initially been seen in cardiology consultation by the undersigned in 2018 due to concerns of an abnormal preoperative EKG prior to leftrotator cuff repair surgery. An exercise stress echocardiogram performed at that time was negative for ischemia. He has maintained follow-up with Cardiology due to issues with mildly elevated blood pr essure in the setting of type 2 diabetes mellitus, dyslipidemia, and mild enlargement of the proximal ascending aorta in the range of 4.2 to 4.3 centimeters per recent imaging studies. On 10/28/2023 he had been seen in routine follow-up by primary care and was noted to have an irregular rhythm. EKG confirmed the presence of rate controlled atrial fibrillation. A Zio Patch was worn for 5 days at which time 100% atrial fibrillation burden observed, with average rate of 106 beats per minute. He stated that prior to the appointment on 11/05/2023 he had not noticed any subjective symptoms. Afterward however he had been moving some firewood around when he was wearing the Zio patch in noticesome chest tightness with exertion. He also notes feeling an irregular heart rhythm when he lays down to go to sleep at night. On 11/11/2023 he started metoprolol succinate 25 milligrams daily as well as Eliquis 5 milligrams twice daily. He notes no additional chest discomfort since starting the metoprolol. He is tolerating the Eliquis well. He has received a rebate card in the Eliquis has been affordable. Extensive ROS: All systems reviewed & are unremarkable except as noted in HPI & below Cardiovascular (chest pain/palpitations/fluttering/diaphoresis/dyspnea on exertion/paroxysmally nocturnal dyspnea):Negative Family History: Father at age 96, pacemaker in his 80's, otherwise no heart disease Mother of complication of DM in her 60's Siblings: 2 sisters and a brother, healthy Past Surgical History: Resection of colon carcinoma, 1999 Removal of basal cell carcinoma below lip, August 2018 Social History: Socioeconomic History Marital status: Spouse name: Leticia Occupational History CPA Tobacco Use Smoking status: Never Smoker Smokeless tobacco: Former User Types: Snuff Review of patient's allergies indicates: Allergen Reactions Lisinopril Cough Penicillins Current Outpatient Medications Medication Sig Dispense Refill ASPIRIN 81 MG PO TABS one tablet daily triamcinolone acetonide (ARISTOCORT) 0.1 % cream Apply topically to affected area 2 times a day. Toaffected area. 15 g 5 Ketoconazole 2 % cream Apply topically to affected area as needed for Itching. 15 g 1 Centrum Silver 50+Men Oral Tablet Take by mouth. OneTouch Ultra Blue In Vitro Strip (Glucose Blood) Test blood sugar up to three times daily as directed 300 Strip 3 OneTouch Delica Plus [id number] Use to test blood glucose directed 3 times daily daily 300 Each 3 metFORMIN HCl 1000 MG Oral Tablet (Glucophage) TAKE ONE TABLET BY MOUTH TWICE DAILY WITH MEALS.( MORNING AND EVENING MEALS) 180 Tablet 3 Jardiance 25 MG Oral Tablet (Empagliflozin) TAKE 1 TABLET BY MOUTH ONCE DAILY 90 Tablet 3 Meloxicam 15 MG Oral Tablet Take 1 Tablet by mouth in the morning. for pain.. 90 Tablet 3 Losartan Potassium 25 MG Oral Tablet (Cozaar) Take 1 Tablet by mouth in the morning. 90 Tablet 1 Rosuvastatin Calcium 40 MG Oral Tablet (Crestor) Take 1 Tablet by mouth in the morning. 90 Tablet 1 Dulaglutide 1.5 MG/0.5ML Subcutaneous Solution Pen-injector (Vindicia) Inject 1.5 mg under the skin once a week. 6 mL 3 Clindamycin HCl 150 MG Oral Capsule (Cleocin) As needed for dental procedures Metoprolol Succinate ER 25 MG Oral Tablet Extended Release 24 Hour (toPROL XL) Take 1 Tablet by mouth in the morning. 30 Tablet 5 Apixaban 5 MG Oral Tablet (Eliquis) Take 1 Tablet by mouth in the morning and 1 Tablet before bedtime. 180 Tablet 3 No current facility-administered medications for this visit. OBJECTIVE/PHYSICAL EXAMINATION: BP 122/84 | Pulse 72 | Resp 18 | Wt 106.6 kg (235 lb) | BMI 30.58 kg/m | BSA 2.35 m General: no acute distress and stated age Eyes: conjunctiva are pink and non-injected, sclera clear Neck: normal jugular venous pulse, no hepatojugular reflux Chest: normal shape and normal respiratory effort Lungs: clear to auscultation , no rales rhonchi or wheezing Cardiac Exam: - irregular, 1/6 SM Abdomen: abdomen soft, non-tender, no abnormal masses and no hepatosplenomegaly Musculoskeletal: no gait disturbance, no weakness Extremities: no edema and no cyanosis Neuro: grossly normal exam Psych: appropriate affect and insight. Data: EKG performed today 11/19/2023 and interpreted independently: Atrial fibrillation at 72 beats per minute, lateral J-point elevation, relatively unchanged compared to previous Echo 12/2022 The examination is adequate to evaluate the referral indication. The qualitative LV ejection fraction is 55-59% (normal). The LV wall thickness is borderline increased (concentric). Mild mitral regurgitation is present. The left atrium is normal sized (< 35 ml/m^2). The aortic root is normal sized. The proximal ascending thoracic aorta is mildly enlarged. (4.3 cm) Compared to prior study of 01/16/21, there is no significant change. Chest CT report reviewed dated January 2021: Ascending aortic aneurysm measuring up to 42 millimeter. Results for orders placed or performed in visit on 10/22/23 LIPID PANEL WITH DIRECT LDL IF TG IS HIGH Result Value Ref Range Triglycerides 78 <=174 mg/dL Cholesterol 138 <200 mg/dL HDL Cholesterol 38 (L) >39 mg/dL Non-HDL Cholesterol 100 <=159 mg/dL LDL Cholesterol 84 <=129 mg/dL Latest Reference Range & Units 10/22/23 11:38 Sodium 135 - 146 mmol/L 141 Potassium 3.5 - 5.1 mmol/L 4.7 Chloride 98 - 107 mmol/L 106 CO2 22 - 32 mmol/L 24 BUN 6 - 20 mg/dL 15 Creatinine 0.6 - 1.2 mg/dL 0.8 Estimated Glomerular Filtration Rate >=60 mL/min >90 Anion Gap 7 - 15 mmol/L 11 Glucose 70 - 120 mg/dL 110 Calcium 8.4 - 10.2 mg/dL 9.6 Estimated Average Glucose <126 mg/dL 157 (H) (H): Data is abnormally high ASSESSMENT / PLAN: 63 year old year old male Persistent atrial fibrillation (HCC) (Primary) The natural history and pathophysiology of atrial fibrillation were discussed at length with the patient and his spouse. His ventricular rate was mildly elevated especially with activity on his recent Zio patch, and he was since started metoprolol succinate. Continue metoprolol succinate. [id number] score is 3 for risk factors of age (he turns 64 in June), hypertension, and diabetes. His hemoglobin as assessed earlier this month was within normal limits and he was tolerating the Eliquis well. Recommend proceeding with a trial of direct current cardioversion. Patient agreeable. This will be scheduled to be performed with me at [facility] in late November, or early December, after he has been on 4 weeks of uninterrupted anticoagulation. Chest Pain Patient noted intermittent chest discomfort with physical activity last month. Improved since the addition of metoprolol. This may have been related to atrial fibrillation with rapid ventricular response, but it off is concerning for perhaps on masking underlying coronary heart disease. Recommend proceeding with nuclear stress test. In his particular case given his development of atrial fibrillation believe a low intensity exercise/pharmacologic protocol would be suitable. Ascending aorta enlargement (HCC) Keep plans for repeat echocardiogram scheduled for January, HTN, goal below 130/80 Continue losartan and metoprolol, current doses Aortic valve sclerosis Follow-up echocardiogram as already scheduled. Dyslipidemia, goal LDL below 70 Continue rosuvastatin 40 milligrams daily. DISPOSITION: Follow Up: Return in about 2 months (around 01/18/2024) for Clinic Visit. | For: Clinic Visit | Check-out note: Cardioversion in 3 weeks, nuclear stress within 1-6 weeks (before or after cardioversion), home sleep test Sylvester Farrell, DO Cardiology, [facility] [address] [facility] [place] [address] This chart was completed in part utilizing [employer] Speech Voice Recognition Software. Grammatical errors, random word insertions, prounoun errors, and incomplete sentences are an occasional consequence of this system due to software limitations, ambient noise, and hardware issues. Any formal questions or concerns about the content, text, or information contained within the body of this dictation should be directly addressed to the provider for clarification. documented in this encounter Procedure Notes * Sylvester Farrell DO - 11/19/2023 9:59 AM ESTAssociated Order(s): EKG REASON FOR STUDY: atrial fibrillation CONCLUSIONS: Atrial fibrillation Abnormal ECG When compared with ECG of 28-OCT-2023 10:14, No significant change was found Ventricular Rate: 72 Atrial Rate: 250 QRS Duration: 90 QT/QTc: 366/400 ms P-R-T [place]: 0 : 24 : 37 degrees documented in this encounter Nursing Notes * Chey Perez LPN - 11/19/2023 9:56 AM EST Examination Room: 10 Name: Buster Beaulieu Date of : (1960) Reason for Visit: Follow up Interim Hospitalization(s): Denies Problems/Concerns: Denies Chest Pain/SOB: Denies My [facility] is a way you can talk to your provider online through e-mail. Would you like to sign up? I can activate it for you? ALREADY ACTIVE Patient was instructed to not get up on the exam table until directed and assisted by their provider; patient is to remain seated in the chair/ wheelchair/ exam table for fall prevention and safety reasons. Patient is aware to have assistance to step down off exam table with personnel. Patient voiced full comprehension of instructions. documented in this encounter Plan of Treatment Upcoming Encounters Date Type Department Care Team (Late st Contact Info) Description 01/20/2024 10:30 AM EST Cardiac Studies Cardiac Studies [address] [place] [address] 01/22/2024 8:00 AM EST Imaging [facility] 2nd Floor Cardiology, [place] [address] [place] [address] Gw, Excess Time Radiology [address] [place] [address] 03/08/2024 11:30 AM EDT Office Visit Cardiology, [facility] [address] [place] [address] Sylvester Farrell, DO [address] [place] [address] 03/30/2024 8:00 AM EDT Office Visit Pharmacy [facility] [place] [address] [place] [address] [place] [facility] [address] [place] [address] 04/29/2024 12:00 PM EDT Office Visit Family Practice [address], [place] [address] [place] [address] Hayes Pierre PA-C [address] [place] [address] Scheduled Orders Name Type Priority Associated Diagnoses Orde r Schedule HEART ELECTROCONVERSION, EXTERNAL Procedures Routine Persistent atrial fibrillation (HCC) Expected: 11/20/2023, Expires: 12/20/2024 NM MYOCARD PERF IMG SPECT MULT STUDIES WITH PHARM INTERV Cardiology Routine Persistent atrial fibrillation (HCC) Chest pain, unspecified type Expected: 11/19/2023 (Approximate), Expires: 12/20/2024 SLEEP TEST W/ TYPE 3 PORTABLE MONITOR, 4 CHANNEL; AT HOME Procedures Routine Persistent atrial fibrillation (HCC) Snoring Obstructive sleep apnea syndrome Ordered: 11/19/2023 Health Maintenance Due Date Last Done Comments [...] this encounter Medical Devices Implanted Type Area Currency Exchange Specialist Device Identifier Shelf Expiration Date Model / Serial / Lot Biocomposite Swivelock Suture [place] Implanted:Qty: 2 on 11/18/2018 by Panchito Wright DO at OR [facility] Left: Shoulder 12/17/2019 [id number] / / [id number] documented as of this encounter Procedures Procedure Name Priority Date/Time Associated Diagnosis Comments CO ECG ROUTINE ECG W/LEAST 12 LDS W/I&R Routine 11/19/2023 9:59 AM EST Persistent atrial fibrillation (HCC) documented in this encounter Results * EKG (11/19/2023 9:59 AM EST) 11/19/2023 9:59 AM EST Narrative Procedure Note Sylvester Farrell DO - 11/19/2023 9:59 AM EST REASON FOR STUDY: atrial fibrillation CONCLUSIONS: Atrial fibrillation Abnormal ECG When compared with ECG of 28-OCT-2023 10:14, No significant change was found Ventricular Rate: 72 Atrial Rate: 250 QRS Duration: 90 QT/QTc: 366/400 ms P-R-T [place]: 0 : 24 : 37 degrees Sylvester Farrell DO EKG [facility] documented in this encounter Visit Diagnoses Diagnosis Persistent atrial fibrillation (HCC)- Primary Atrial fibrillation Ascending aorta enlargement (HCC) Other specified disorders of arteries and arterioles HTN, goal below 130/80 Unspecified essential hypertension Aortic valve sclerosis Aortic valve disorders Dyslipidemia, goal LDL below 70 Other and unspecified hyperlipidemia Chest pain, unspecified type Snoring Other dyspnea and respiratory abnormality Obstructive sleep apnea syndrome Obstructive sleep apnea (adult) (pediatric) documented in this encounter Care Teams Watch And Clock Maker And Repairer Relationship Specialty Start Date End Date Angelique Hook DO PCP - General Family Medicine 02/26/22 documented as of this encounter"
--- OUTSIDE RECORDS SUMMARY | 2023-12-19 15:36 | External Medical Summary | Summary of Care ---
Author Name Unknown Organization [facility] Address [address] [facility] [address] Phone [phone] Care Team Providers Care Cafeteria Attendant Name Role Phone Roscoe Hookison Yissel AGUILLON Primary Care Provider [phone] Encounter Details Date Type Department Care Team (Late st Contact Info) Description 12/10/2023 Telephone Cardiology, [facility] [address] [place] [address] Sylvester Farrell DO [address] [place] [address] Allergies Active Allergy Reactions Criticality Noted Date [...] hemoglobin A1c goal of less than 7.0% ([facility]) Test blood sugar up to three times daily as directed 300 Strip 3 08/29/2022 Active OneTouch Delica Plus [id number]: Type 2 diabetes mellitus with hemoglobin A1c [...] mRNA, LNP-s, No Pre serve, 2-Dose Series (MYOS) 07/05/2022,09/24/2021,02/03/2021,12/19 Hepatitis B, 20+ yrs 02/09/2015,10/07/2014,06/06 Pneumococcal Conjugate Vacci ne, 20-valent ([id number]) 04/10/2023 Pneumococcal Polysaccharide PPV23 (Pneumovax) 06/06/2014 Seasonal [...] for DCCV on 12/18/23 @ 745am at [facility]. Patient wasa advised to hold trulicity until after procedure * Telephone Encounter - Chey Perez LPN - 12/10/2023 9:51 AM EST Patient currently scheduled for Cardioversion on 12/16/23 at [facility]. [place] pre anesthesia calling asking for recommendation for procedure from Dr Farrell, patient took Trulicity this morning. Now recommended that patients hold Trulicity for 1 week prior to procedure. [facility] recommending to postpone procedure unless otherwise stated by physician documented in this encounter Plan of Treatment Upcoming Encounters Date Type Department Care Team (Late st Contact Info) Description 01/20/2024 10:30 AM EST Cardiac Studies [address] [place] [address] [place] [address] 01/22/2024 8:00 AM EST Imaging [facility] 2nd Floor Cardiology, [place] [address] [place] [address] Gw, Excess Time Radiology [address] [place] [address] 03/08/2024 11:30 AM EDT Office Visit Cardiology, [facility] [address] [place] [address] Sylvester Farrell, [address] [place] [address] 03/30/2024 8:00 AM EDT Office Visit Pharmacy [address], [place] [address] [place] [address] [place], [facility] [address] [place] [address] 04/29/2024 12:00 PM EDT Office Visit Family Practice [address], [place] [address] [place] [address] Hayes Pierre PA-C [address] [place] [address] Health Maintenance Due Date Last Done Comments [...] this encounter Medical Devices Implanted Type Area Lifestyle Coordinator Device Identifier Shelf Expiration Date Model / Serial / Lot Biocomposite Swivelock Suture [place] Implanted:Qty: 2 on 11/18/2018 by Panchito Wright DO at [facility] Left: Shoulder 12/17/2019 [id number] / / [id number] documented as of this encounter Care Teams Cafeteria Attendant Relationship Specialty Start Date End Date Angelique Hook DO PCP - General Family Medicine 02/26/22 documented as of this encounter
--- OUTSIDE RECORDS SUMMARY | 2023-12-19 15:36 | External Medical Summary | Summary of Care ---
Author Name Unknown Organization [facility] Address [address] [facility] [address] Phone [phone] Care Team Providers Care Swage Tender Name Role Phone Roscoe Hookison Yissel AGUILLON Primary Care Provider [phone] Reason for Visit * Reason Onset Date Comments Appointment 11/19/2023 Encounter Details Date Type Department Care Team (Late st Contact Info) Description 11/19/2023 Telephone Cardiology, [facility] [address] [place] [address] Sylvester Farrell DO [address] [place] [address] Appointment Allergies Active Allergy Reactions Criticality Noted Date [...] Strip 3 08/29/2022 Active OneTouch Delica Plus [id number]: Type 2 diabetes mellitus with hemoglobin A1c [...] mRNA, LNP-s, No Pre serve, 2-Dose Series ([employer] 07/05/2022,09/24/2021,02/03/2021,12/19 Hepatitis B, 20+ yrs 02/09/2015,10/07/2014,06/06 Pneumococcal Conjugate Vacci ne, 20-valent ([id number]) 04/10/2023 Pneumococcal Polysaccharide PPV23 (Pneumovax) 06/06/2014 Seasonal [...] encounter Miscellaneous Notes * Telephone Encounter - Saundra Cantu OSA - 11/19/2023 10:55 AM EST Nuc stress test needed per Dr. Farrell. documented in this encounter Plan of Treatment Upcoming Encounters Date Type Department Care Team (Late st Contact Info) Description 01/20/2024 10:30 AM EST Cardiac Studies [address]iac Studies [address] [place] [address] 03/08/2024 11:30 AM EDT Office Visit Cardiology, [address] [place] [address] Sylvester Farrell, [address] [place] [address] 03/30/2024 8:00 AM EDT Office Visit Pharmacy [address], [place] [address] [place] [address] [place] [facility] [address] [place] [address] 04/29/2024 12:00 PM EDT Office Visit Family Practice [address], [place] [address] [place] [address] Hayes Pierre PA-C [address] [place] [address] Health Maintenance Due Date Last Done Comments [...] this encounter Medical Devices Implanted Type Area Calender Wind Up Helper Device Identifier Shelf Expiration Date Model / Serial / Lot Biocomposite Swivelock Suture [place] Implanted:Qty: 2 on 11/18/2018 by Panchito Wright DO at OR [facility] Left: Shoulder 12/17/2019 [id number] / / [id number] documented as of this encounter Care Teams Swage Tender Relationship Specialty Start Date End Date Angelique Hook DO PCP - General Family Medicine 02/26/22 documented as of this encounter
--- OUTSIDE RECORDS SUMMARY | 2023-12-19 15:36 | External Medical Summary | Summary of Care ---
Author Name Unknown Organization [facility] Address [address] [place] [address] Phone [phone] Care Team Providers Care Sample Processor Name Role Phone Hook, Angelique Barryvarghese Primary Care Provider [phone] Reason for Visit * Reason Onset Date Comments Scheduling 11/24/2023 HST Encounter Details Date Type Department Care Team (Late st Contact Info) Description 11/24/2023 Telephone Sleep Lab Tremayne Trevizo 132 [facility] [place] [address] Tre[place]izo, Sleep Med Home Study [facility] 132 [place] [address] Scheduling (HST) Allergies Active Allergy Reactions Criticality Noted Date Comments Lisinopril Cough Medium 08/04/2014 Penicillins 11/30/2010 documented as of this encounter (statuses as of 11/24/2023) Medications Medication Sig Dispensed Refills Start Date [...] Strip 3 08/29/2022 Active OneTouch Delica Plus [id number]: Type 2 diabetes mellitus with hemoglobin A1c [...] as of this encounter (statuses as of 11/24/2023) Active Problems Problem Noted Date Diagnosed Date [...] as of this encounter (statuses as of 11/24/2023) Resolved Problems Problem Noted Date Diagnosed Date [...] as of this encounter (statuses as of 11/24/2023) Immunizations Name Administration Dates Next Due COVID-19 mRNA, LNP-s, No Pre serve, 2-Dose Series (Alice.com) 07/05/2022,09/24/2021,02/03/2021,12/19 Hepatitis B, 20+ yrs 02/09/2015,10/07/2014,06/06 Pneumococcal Conjugate Vacci ne, 20-valent (Nvderxc30) 04/10/2023 Pneumococcal Polysaccharide PPV23 (Pneumovax) 06/06/2014 Seasonal [...] encounter Miscellaneous Notes * Telephone Encounter - Babs Neumann, MANI - 11/24/2023 2:02 PM EST Order in [facility] from Sylvester Farrell DO for HST. Ins auth is not required. Automotive Machinist Apprentice approval is not required. Hi Dr. Farrell, In order for the insurance company to cover the sleep study, there must be a documented discussion between the provider and patient in the office setting where the sleep disorder symptoms are mentioned. (Such as snoring, stops breathing while sleeping, extreme fatigue, etc.) Would you be agreeable to addend your note to substantiate the need for this study. Another option would be to place a Sleep Medicine referral. Please forward your response to me for handling. Thank you very kindly. documented in this encounter Plan of Treatment Upcoming Encounters Date Type Department Care Team (Late st Contact Info) Description 01/20/2024 10:30 AM EST Cardiac Studies Cardiac Studies [address], [place] [address] [place] [address] 01/22/2024 8:00 AM EST Imaging [facility] 2nd Floor Cardiology, [place] [address] [place] [address] Gw, Excess Time Radiology [address] [place] [address] 03/08/2024 11:30 AM EDT Office Visit Cardiology, [facility] [address] [facility] [place] [address] Sylvester Farrell, DO [address] [place] [address] 03/30/2024 8:00 AM EDT Office Visit Pharmacy [address], [place] [address] [place] [address] [place], [facility] [address] [place] [address] 04/29/2024 12:00 PM EDT Office Visit Family Practice [address], [place] [address] [place] [address] Hayes Pierre PA-C [address] [place] [address] Health Maintenance Due Date Last Done Comments COVID-19 Vaccine (2022- season) 2023 07/05/2022, 09/24/2021, 02/03/2021, Additional history [...] this encounter Medical Devices Implanted Type Area Microsoft Developer Device Identifier Shelf Expiration Date Model / Serial / Lot Biocomposite Swivelock Suture [place] Implanted:Qty: 2 on 11/18/2018 by Panchito Wright DO at OR [facility] Left: Shoulder 12/17/2019 [id number] / / [id number] documented as of this encounter Care Teams Sample Processor Relationship Specialty Start Date End Date Angelique Hook DO PCP - General Family Medicine 02/26/22 documented as of this encounter
--- OUTSIDE RECORDS SUMMARY | 2023-12-19 15:36 | External Medical Summary | Summary of Care ---
Author Name Unknown Organization [facility] Address [address] [place] [address] Phone [phone] Care Team Providers Care Crowd Controller Name Role Phone Hook, Angelique Barryvarghese Primary Care Provider [phone] Reason for Visit * Reason Onset Date Comments Scheduling 11/24/2023 HST Encounter Details Date Type Department Care Team (Late st Contact Info) Description 11/24/2023 Telephone Sleep Lab Tremayne Trevizo 132 [facility] [place] [address] Trevizo, Sleep Med Home Study [facility] 132 [place] [address] Scheduling (HST) Allergies Active Allergy Reactions Criticality [...] Strip 3 08/29/2022 Active OneTouch Delica Plus [id number]: Type 2 diabetes mellitus with hemoglobin A1c [...] mRNA, LNP-s, No Pre serve, 2-Dose Series ([employer]) 07/05/2022,09/24/2021,02/03/2021,12/19 Hepatitis B, 20+ yrs 02/09/2015,10/07/2014,06/06 Pneumococcal Conjugate Vacci ne, 20-valent ([id number]) 04/10/2023 Pneumococcal Polysaccharide PPV23 (Pneumovax) 06/06/2014 Seasonal [...] encounter Miscellaneous Notes * Telephone Encounter - Sylvester Farrell DO - 11/24/2023 2:36 PM EST Yes. Thank you. Sylvester Farrell DO * Telephone Encounter - Babs Neumann OSA - 11/24/2023 2:02 PM EST Order in [facility] from Sylvester Farrell DO for HST. Ins auth is not required. Billing Supervisor approval is not required. Hi Dr. Farrell, [...] 10:30 AM EST Cardiac Studies Cardiac Studies [address] [place] [address] 01/22/2024 8:00 AM EST [facility]nd [facility] 132 [facility] [place] [address] Gw, Excess Time Radiology 132 [facility] [place] [address] 03/08/2024 11:30 AM EDT Office Visit Cardiology, [facility] 132 [facility] [place] [address] Sylvester Farrell, DO 132 [facility] [place] [address] 03/30/2024 8:00 AM EDT Office Visit Pharmacy [address] [place] [address] [place] [facility] [address] [place] [address] 04/29/2024 12:00 PM EDT Office Visit Family Practice [address] [place] [address] Hayes Pierre PA-C [address] [place] [address] Health Maintenance Due Date Last Done Comments COVID-19 Vaccine ( season) 2023 07/05/2022, 09/24/2021, 02/03/2021, Additional history exists Influenza Vaccine (FLU shot) (#1) 2023 08/09/2022, 09/11/2021, 08/17/2020, Additional history exists Albumin/Creatinine Ratio 04/04/2024 023, 08/23/2022, 02/13/2022, Additional history exists B-12 04/04/2024 04/04/2023, 05/2022, 02/13/2022, Additional history exists Depression Screening 04/10/2024 [...] this encounter Medical Devices Implanted Type Area Sample Maker Original Device Identifier Shelf Expiration Date Model / Serial / Lot Biocomposite Swivelock Suture [place] Implanted:Qty: 2 on 11/18/2018 by Panchito Wright DO at OR [facility] Left: Shoulder 12/17/2019 [id number] / / [id number] documented as of this encounter Care Teams Crowd Controller Relationship Specialty Start Date End Date Angelique Hook DO PCP - General Family Medicine 02/26/22 documented as of this encounter
--- OUTSIDE RECORDS SUMMARY | 2023-12-19 15:36 | External Medical Summary | Summary of Care ---
Author Name Unknown Organization [facility] Address [address] [place] [address] Phone [phone] Care Team Providers Care Maintenance Leader Name Role Phone HookRoscoeAngelique Yissel AGUILLON Primary Care Provider [phone] Reason for Referral * Precert (Within 10 days (routine)) - Pending Review Specialty Diagnoses / Procedures Referred By Destiney alexander Referred To Contact Radiology Diagnoses Persistent atrial fibrillation (HCC) Chest pain, unspecified type Procedures NM MYOCARD PERF IMG SPECT MULT STUDIES WITH PHARM INTERV Sylvester Farrell DO [address] [place] [address] Referral ID Status Reason Start Date Expiration Date Visits Requested Visits Authorized [id number] Pending Review Precert 11/19/2023 999 999 Reason for Visit * Reason Comments Follow Up Encounter Details Date Type Department Care Team (Late st Contact Info) Description 11/19/2023 10:00 AM EST Office Visit Cardiology, [facility] [address] [place] [address] Sylvester Farrell DO [address] [place] [address] Persistent atrial fibrillation (HCC)*; Ascending aorta enlargement [...] Strip 3 08/29/2022 Active OneTouch Delica Plus [id number]: Type 2 diabetes mellitus with hemoglobin A1c [...] mRNA, LNP-s, No Pre serve, 2-Dose Series (Zayo) 07/05/2022,09/24/2021,02/03/2021,12/19 Hepatitis B, 20+ yrs 02/09/2015,10/07/2014,06/06 Pneumococcal Conjugate Vacci ne, 20-valent (Xanvauu73) 04/10/2023 Pneumococcal Polysaccharide PPV23 (Pneumovax) 06/06/2014 Seasonal [...] in this encounter Progress Notes * Sylvester Farrell DO - 11/24/2023 2:37 PM EST Addendum: At the time of the patient's recent visit, he had described episodes of snoring, witnessed by his spouse. He also notes some degree of daytime somnolence. Given his history of snoring, daytime somnolence, and now the diagnosis of atrial fibrillation, recommend proceeding with workup for obstructive sleep apnea. Patient was agreeable to proceeding with a home sleep study. Sylvester Farrell DO 11/24/2023 2:38 PM * Sylvester Farrell DO - 11/19/2023 10:12 AM EST 11/19/2023 [...] directed 300 Strip 3 OneTouch Delica Plus Obrvqo40Y Use to test blood glucose directed 3 [...] 1 Dulaglutide 1.5 MG/0.5ML Subcutaneous Solution Pen-injector (JustParts) Inject 1.5 mg under the skin once [...] since started metoprolol succinate. Continue metoprolol succinate. [id number] score is 3 for risk factors of age (he turns 64 in June), hypertension, and diabetes. His hemoglobin as assessed earlier this month was within normal limits and he was tolerating the Eliquis well. Recommend proceeding with a trial of direct current cardioversion. Patient agreeable. This will be scheduled to be performed with me at [facility] in late November, or early December, after [...] or after cardioversion), home sleep test Sylvester Farrell DO Cardiology, [address] [address] This chart was completed in part utilizing [employer] Speech Voice Recognition Software. Grammatical errors, random [...] QRS Duration: 90 QT/QTc: 366/400 ms P-R-T Guild: 0 : 24 : 37 degrees documented [...] 10:30 AM EST Cardiac Studies Card[address] Studies [address] [place] [address] 01/22/2024 8:00 AM EST Imaging [facility] 2nd Floor [facility] 132 [facility] [place] [address] Gw, Excess Time Radiology 132 [facility] [place] [address] 03/08/2024 11:30 AM EDT Office Visit Cardiology, [facility] [address] [place] [address] Sylvester Farrell, [address] [place] [address] 03/30/2024 8:00 AM EDT Office Visit [address]acy [address] [place] [address] [place] [facility] [address] [place] [address] 04/29/2024 12:00 PM EDT Office Visit Family Practice [address] [place] [address] Hayes Pierre PA-C [address] [place] [address] Scheduled Orders Name Type Priority Associated Diagnoses [...] this encounter Medical Devices Implanted Type Area General Manager Land Department Device Identifier Shelf Expiration Date Model / Serial / Lot Biocomposite Swivelock Suture [place] Implanted:Qty: 2 on 11/18/2018 by Panchito Wright DO at OR [facility] Left: Shoulder 12/17/2019 [id number] / / [id number] documented as of this encounter Procedures Procedure Name Priority Date/Time Associated Diagnosis Comments NC ECG ROUTINE ECG W/LEAST 12 LDS W/I&R Routine 11/19/2023 9:59 AM EST Persistent atrial fibrillation (HCC) documented in this encounter Results * EKG (11/19/2023 9:59 AM EST) 11/19/2023 9:59 AM EST Narrative Procedure Note Sylvester Farrell, - 11/19/2023 9:59 AM EST REASON FOR STUDY: atrial fibrillation CONCLUSIONS: Atrial fibrillation Abnormal ECG When compared with ECG of 28-OCT-2023 10:14, No significant change was found Ventricular Rate: 72 Atrial Rate: 250 QRS Duration: 90 QT/QTc: 366/400 ms P-R-T Guild: 0 : 24 : 37 degrees Sylvester Farrell DO EKG Performing Organization Address City/State[place]IP [place] Phone Number [facility] documented in this encounter Visit Diagnoses [...] (pediatric) documented in this encounter Care Teams Maintenance Leader Relationship Specialty Start Date End Date Angelique Hook DO PCP - General Family Medicine 02/26/22 documented as of this encounter"
--- OUTSIDE RECORDS SUMMARY | 2023-12-19 15:36 | External Medical Summary | Summary of Care ---
Author Name Unknown Organization [facility] Address [address] [place] [address] Phone [phone] Care Team Providers Care Medical Biller Name Role Phone HookRoscoeAngelique Yissel AGUILLON Primary Care Provider [phone] Reason for Referral * Precert (Within 10 days (routine)) - Pending Review Specialty Diagnoses / Procedures Referred By Destiney alexander Referred To Contact Radiology Diagnoses Persistent atrial fibrillation (HCC) Chest pain, unspecified type Procedures NM MYOCARD PERF IMG SPECT MULT STUDIES WITH PHARM INTERV Sylvester Farrell DO [address] [place] [address] Referral ID Status Reason Start Date Expiration Date Visits Requested Visits Authorized [id number] Pending Review Precert 11/19/2023 999 999 Reason for Visit * Reason Comments Follow Up Encounter Details Date Type Department Care Team (Late st Contact Info) Description 11/19/2023 10:00 AM EST Office Visit Cardiology, [facility] [address] [place] [address] Sylvester Farrell DO [address] [place] [address] Persistent atrial fibrillation (HCC)*; Ascending aorta enlargement [...] Strip 3 08/29/2022 Active OneTouch Delica Plus [id number]: Type 2 diabetes mellitus with hemoglobin A1c [...] mRNA, LNP-s, No Pre serve, 2-Dose Series ([employer]) 07/05/2022,09/24/2021,02/03/2021,12/19 Hepatitis B, 20+ yrs 02/09/2015,10/07/2014,06/06 Pneumococcal Conjugate Vacci ne, 20-valent (Mccmdjg21) 04/10/2023 Pneumococcal Polysaccharide PPV23 (Pneumovax) 06/06/2014 Seasonal [...] directed 300 Strip 3 OneTouch Delica Plus Yrugma67Q Use to test blood glucose directed 3 [...] 1 Dulaglutide 1.5 MG/0.5ML Subcutaneous Solution Pen-injector ([employer]) Inject 1.5 mg under the skin once [...] since started metoprolol succinate. Continue metoprolol succinate. [id number] score is 3 for risk factors of age (he turns 64 in June), hypertension, and diabetes. His hemoglobin as assessed earlier this month was within normal limits and he was tolerating the Eliquis well. Recommend proceeding with a trial of direct current cardioversion. Patient agreeable. This will be scheduled to be performed with me at [facility] in late November, or early December, [...] home sleep test Sylvester Farrell, DO Cardiology, [facility] 132 [facility] [place] [address] This chart was completed in part utilizing [employer] Speech Voice Recognition Software. Grammatical errors, random word insertions, prounoun errors, and incomplete sentences are an occasional consequence of this system due to software limitations, ambient noise, and hardware issues. Any formal questions or concerns about the content, text, or information contained within the body of this dictation should be directly addressed to the provider for clarification. documented in this encounter Nursing Notes * [...] Cardiac Studies Cardiac Studies [address] [place] [address] 03/08/2024 11:30 AM EDT Office Visit Cardiology, [facility] [address] [place] [address] Sylvester Farrell DO [address] [place] [address] 03/30/2024 8:00 AM EDT Office Visit Pharmacy [address] [place] [address] [address] [facility] [address] [place] [address] 04/29/2024 12:00 PM EDT Office Visit Family [facility] [address] [place] [address] Hayes Pierre PA-C [address] [place] [place] [address] Scheduled Orders Name Type Priority Associated Diagnoses Orde r Schedule EKG EKG Routine Persistent atrial fibrillation (HCC) Ordered: 11/19/2023 HEART ELECTROCONVERSION, EXTERNAL Procedures Routine Persistent atrial [...] this encounter Medical Devices Implanted Type Area Plaster [place]ittler Device Identifier Shelf Expiration Date Model / Serial / Lot Biocomposite Swivelock Suture [place] Implanted:Qty: 2 on 11/18/2018 by Panchito Wright DO at OR [facility] Left: Shoulder 12/17/2019 [id number] / / [id number] documented as of this encounter Visit Diagnoses Diagnosis Persistent atrial [...] (pediatric) documented in this encounter Care Teams Medical Biller Relationship Specialty Start Date End Date Angelique Hook DO PCP - General Family Medicine 02/26/22 documented as of this encounter"
--- OUTSIDE RECORDS SUMMARY | 2023-12-19 15:37 | External Medical Summary ---
Author Name Unknown Address Unknown Organization [id number][place] [facility] [place] [address] [facility] [place] [address] Laboratory Report Ordering Provider Test Date Status MIKE,KATE 11/05/2023 11:00:04 Final Observation Date Value Abnormality Reference (Units ) Status SYNC LEUKOCYTES IN BLOOD BY AUTOMATED COUNT 11/05/2023 11:00:04 5.28 4.00-10.80 (K/uL) Final Segs 11/05/2023 11:00:04 57.2 40.0-75.0 (%) Final Lymphs % 11/05/2023 11:00:04 29.5 18.0-42.0 (%) Final Monos 11/05/2023 11:00:04 9.7 1.0-11.0 (%) Final Eosinophils 11/05/2023 11:00:04 2.1 0.0-6.0 (%) Final Basos 11/05/2023 11:00:04 1.1 0.0-2.0 (%) Final Immature Granulocyte, Percent 11/05/2023 11:00:04 0.4 0.0-2.0 (%) Final Absolute Segs 11/05/2023 11:00:04 3.02 1.80-7.70 (K/uL) Final Lymphs, absolute 11/05/2023 11:00:04 1.56 1.00-4.80 (K/ul) Final Monos, Abs 11/05/2023 11:00:04 0.51 0.00-1.10 (K/uL) Final Eos, Abs 11/05/2023 11:00:04 0.11 0.00-0.70 (K/uL) Final Basos, Abs 11/05/2023 11:00:04 0.06 0.00-0.20 (K/uL) Final Immature Granulocytes, Number 11/05/2023 11:00:04 0.02 0.00-0.20 (K/uL) Final Performing Location [place] [facility] [facility] [address]. [facility] [address]
--- OUTSIDE RECORDS SUMMARY | 2023-12-19 15:37 | External Medical Summary ---
Author Name Unknown Address Unknown Organization [id number]:[facility] [place] [address] [place] [address] Laboratory Report Ordering Provider Test Date Status KATE MCKEON 11/05/2023 11:00:04 Final Observation Date Value Abnormality Reference (Units ) Status Albumin 11/05/2023 11:00:04 4.7 3.8-5.0 (g/dL) Final AST (Aspartate aminotransferase) 11/05/2023 11:00:04 20 10-50 (U/L) Final Alk Phos 11/05/2023 11:00:04 75 35-130 (U/L) Final ALT (Alanine aminotransferase) 11/05/2023 11:00:04 28 10-50 (U/L) Final Bilirubin, Total 11/05/2023 11:00:04 0.4 <=1.2 (mg/dL) Final Bilirubin, Direct 11/05/2023 11:00:04 <0.2 0.0-0.3 (mg/dL) Final Protein 11/05/2023 11:00:04 6.6 6.0-8.3 (g/dL) Final Performing Location [facility]ORY [facility] [place] - [address] [place] [address]
--- OUTSIDE RECORDS SUMMARY | 2023-12-19 15:37 | External Medical Summary | Summary of Care ---
Author Name Unknown Organization [facility] Address [address] [facility] [place] [address] Phone [phone] Care Team Providers Care Solar Pool Heating Installer Name Role Phone Roscoe Hookison Yissel AGUILLON Primary Care Provider [phone] [phone] Encounter Details Date Type Department Care Team (Late st Contact Info) Description 11/11/2023 Telephone Cardiology, [facility] [address] [place] [address] Sylvester Farrell DO [address] [place] [address] Allergies Active Allergy Reactions Criticality Noted Date [...] hemoglobin A1c goal of less than 7.0% ([facility]) Test blood sugar up to three times daily as directed 300 Strip 3 08/29/2022 Active OneTouch Delica Plus [id number]: Type 2 diabetes mellitus with hemoglobin A1c [...] needed for dental procedures 0 10/21/2023 Active documented as of this encounter (statuses [...] skin 02/02/2014 06/05/2018 Tendinitis of thumb 02/02/2014 05/21/20 14 Overview: Left Bronchitis, complicated 08/03/201301/15 Obesity, Class I, BMI 30.0-3 4.9 (see actual BMI) 02/11/2012 04/06/2014 LUMBAR DISC DISEASE WITH S1 NERVE ROOT PAIN (RESOLVED) 02/12/2011 08/12/2012 LUMBAR DISC DISEASE WITH S1 NERVE ROOT PAIN 01/29/2011 02/12/2011 NEVI OF CHEST WALL AND SCALP S/P REMOVAL 11/2712/26/1908/12/2012 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 [...] mRNA, LNP-s, No Pre serve, 2-Dose Series ([employer]) 07/05/2022,09/24/2021,02/03/2021,12/19 Hepatitis B, 20+ yrs 02/09/2015,10/07/2014,06/06 Pneumococcal Conjugate Vacci ne, 20-valent (Oddgogn60) 04/10/2023 Pneumococcal Polysaccharide PPV23 (Pneumovax) 06/06/2014 Seasonal [...] as of this encounter Miscellaneous Notes * Addendum Note - Kayley Bond CRNP - 11/11/2023 1:47 PM ESTAddended by: KAYLEY BOND on: 11/11/2023 01:47 PM Modules accepted: Orders * Telephone Encounter - Kyle Canchola RN - 11/11/2023 1:42 PM EST Called and spoke to the patient and reviewed the message with I'm from Kayley Bond. He stated he understood. * Telephone Encounter - Kayley Bond CRNP - 11/11/2023 10:16 AM EST Patient with newly dx AFIB- persistent per zio. Avg rates in the low 100s. Patient was to start Eliquis per TE/patient message dated 10/31/2023. I will sign the Rx for him. Where does he want it sent? I would also like him to start metoprolol 25 mg daily. Keep follow up with Dr. Farrell as scheduled. GEOVANNY Avilez * Telephone Encounter - Kyle Canchola RN - 11/11/2023 9:39 AM EST Patient phoned the clinic and stated over the weekend he ws lifting some heavy fire wood. He statedhe then developed some fluttering in his chest and also felt may be he pulled a muscle or describedas a heaviness... Denies any shortness of breath. He denies any of the above feeling today. I explained if he the symptoms return to go to the ER immediately. He stated he understood. * Telephone Encounter - Ayesha Chan OSA - 11/11/2023 9:32 AM EST Transferred to [facility]. documented in this encounter Plan of Treatment Upcoming Encounters Date Type Department Care Team (Late st Contact Info) Description 11/19/2023 10:00 AM EST Office Visit Cardiology, [facility] [address] [place] [address] Sylvester Farrell, [address] [place] [address] 01/20/2024 10:30 AM EST Cardiac Studies Cardiac Studies [place] [address] [place] [place] [id number] 03/08/2024 11:30 AM EDT Office Visit Cardiology, [facility] [address] [place] [address] Sylvester Farrell, [address] [place] [address] 03/30/2024 8:00 AM EDT Office Visit Pharmacy [place] [address] [place], [place] [address] [place] [facility] [address] [place] [address] 04/29/2024 12:00 PM EDT Office Visit Family Practice [place] [address] [place], [place] [address] Hayes Pierre PA-C [address] [place] [address] Health Maintenance Due Date Last Done Comments [...] this encounter Medical Devices Implanted Type Area Stem Shaper Device Identifier Shelf Expiration Date Model / Serial / Lot Biocomposite Swivelock Suture [place] Implanted:Qty: 2 on 11/18/2018 by Panchito Wright DO at OR [facility] Left: Shoulder 12/17/2019 [id number] / / [id number] documented as of this encounter Care Teams Solar Pool Heating Installer Relationship Specialty Start Date End Date Angelique Hook DO PCP - General Family Medicine 02/26/22 documented as of this encounter
--- OUTSIDE RECORDS SUMMARY | 2023-12-19 15:37 | External Medical Summary | Summary of Care ---
Author Name Unknown Organization [facility] Address [address] [place] [address] Phone [phone] Care Team Providers Care Senior Financial Analyst Name Role Phone Hook, Angelique Barryvarghese Primary Care Provider +1 [phone] Encounter Details Date Type Department Care Team (Late st Contact Info) Description 11/06/2023 Telephone Family Practice [address] [place] [address] Hayes Pierre PA-C [address] [place] [address] Allergies Active Allergy Reactions Criticality Noted Date Comments Lisinopril Cough Medium 08/04/2014 Penicillins 11/30/2010 documented as of this encounter (statuses as of 11/06/2023) Medications Medication Sig Dispensed Refills Start Date [...] hemoglobin A1c goal of less than 7.0% ([facility]) Test blood sugar up to three times daily as directed 300 Strip 3 08/29/2022 Active OneTouch Delica Plus [id number]: Type 2 diabetes mellitus with hemoglobin A1c [...] as of this encounter (statuses as of 11/06/2023) Active Problems Problem Noted Date Diagnosed Date [...] as of this encounter (statuses as of 11/06/2023) Resolved Problems Problem Noted Date Diagnosed Date [...] as of this encounter (statuses as of 11/06/2023) Immunizations Name Administration Dates Next Due COVID-19 mRNA, LNP-s, No Pre serve, 2-Dose Series ([employer]) 07/05/2022,09/24/2021,02/03/2021,12/19 Hepatitis B, 20+ yrs 02/09/2015,10/07/2014,06/06 Pneumococcal Conjugate Vacci ne, 20-valent ([id number]) 04/10/2023 Pneumococcal Polysaccharide PPV23 (Pneumovax) 06/06/2014 Seasonal [...] encounter Miscellaneous Notes * Telephone Encounter - Hayes Pierre PA-C - 11/06/2023 10:09 AM EST Message sent to patient. documented in this encounter Plan of Treatment Upcoming Encounters Date Type Department Care Team (Late st Contact Info) Description 11/19/2023 10:00 AM EST Office Visit Cardiology [facility] [address] [place] [address] Sylvester Farrell DO [address] [place] [address] 01/20/2024 10:30 AM EST Cardiac Studies Cardiac Studies [place] [address] [facility] [place] [address] 03/08/2024 11:30 AM EDT Office Visit [facility] [address] [place] [address] Sylvester Farrell, DO [address] [place] [address] 03/30/2024 8:00 AM EDT Office Visit Pharmacy [address], [place] [address] [place] [address] [facility] [address] [place] [address] 04/29/2024 12:00 PM EDT Office Visit Family Practice [address], [place] [address] [place] [address] Hayes Pierre PA-C [address] [place] [address] Health Maintenance Due Date Last Done Comments [...] this encounter Medical Devices Implanted Type Area Workforce Management Consultant Device Identifier Shelf Expiration Date Model / Serial / Lot Biocomposite Swivelock Suture [place] Implanted:Qty: 2 on 11/18/2018 by Panchito Wright DO at OR [facility] Left: Shoulder 12/17/2019 [id number] / / [id number] documented as of this encounter Care Teams Senior Financial Analyst Relationship Specialty Start Date End Date Angelique Hook DO PCP - General Family Medicine 02/26/22 documented as of this encounter
--- OUTSIDE RECORDS SUMMARY | 2023-12-19 15:37 | External Medical Summary | Summary of Care ---
Author Name Unknown Organization [facility] Address [address] [place] [address] Phone [phone] Care Team Providers Care Equine Dentist Name Role Phone Hook, Angelique Barryvarghese Primary Care Provider +1 [phone] Encounter Details Date Type Department Care Team (Late st Contact Info) Description 11/05/2023 Telephone Family Practice [address] [place] [address] Hayes Pierre PA-C [address] [place] [address] Allergies Active Allergy Reactions Criticality Noted Date Comments Lisinopril Cough Medium 08/04/2014 Penicillins 11/30/2010 documented as of this encounter (statuses as of 11/05/2023) Medications Medication Sig Dispensed Refills Start Date [...] hemoglobin A1c goal of less than 7.0% ([facility]) Test blood sugar up to three times daily as directed 300 Strip 3 08/29/2022 Active OneTouch Delica Plus [id number]: Type 2 diabetes mellitus with hemoglobin A1c [...] as of this encounter (statuses as of 11/05/2023) Active Problems Problem Noted Date Diagnosed Date [...] as of this encounter (statuses as of 11/05/2023) Resolved Problems Problem Noted Date Diagnosed Date [...] as of this encounter (statuses as of 11/05/2023) Immunizations Name Administration Dates Next Due COVID-19 mRNA, LNP-s, No Pre serve, 2-Dose Series ([employer]) 07/05/2022,09/24/2021,02/03/2021,12/19 Hepatitis B, 20+ yrs 02/09/2015,10/07/2014,06/06 Pneumococcal Conjugate Vacci ne, 20-valent ([id number]) 04/10/2023 Pneumococcal Polysaccharide PPV23 (Pneumovax) 06/06/2014 Seasonal [...] Telephone Encounter - Hayes Pierre PA-C - 11/05/2023 4:02 PM EST Labs reviewed. A1c stable at 7.1; LDL slightly elevated at 84. We will discuss this at future visit. documented in this encounter Plan of Treatment Upcoming Encounters Date Type Department Care Team (Late st Contact Info) Description 11/19/2023 10:00 AM EST [facility] [address] [place] [address] Sylvester Farrell, [address] [place] [address] 01/20/2024 10:30 AM EST Cardiac Studies [place] [address] [place] [address] [id number] 03/08/2024 11:30 AM EDT Office Visit Cardiology, [facility] [address] [place] [address] Sylvester Farrell, [address] [place] [address] 03/30/2024 8:00 AM EDT Office [facility] [place] [address] [address] [place] [address] [place] [facility] [address] [place] [address] 04/29/2024 12:00 PM EDT Office Visit [facility] Practice [place] [address] [address] [place] [address] Hayes Pierre PA-C [address] [place] [address] Health Maintenance Due Date Last Done Comments COVID-19 Vaccine ( season) 2023 07/05/2022, 09/24/2021, 02/03/2021, Additional history exists Influenza Vaccine (FLU shot) (#1) 2023 08/09/2022, 09/11/2021, 08/17/2020, Additional history exists Albumin/Creatinine Ratio 04/04/2024 023, 08/23/2022, 02/13/2022, Additional history exists B-12 04/04/2024 04/04/2023, 10/0 05/2022, 02/13/2022, Additional history exists Depression Screening [...] this encounter Medical Devices Implanted Type Area Line Repairer Device Identifier Shelf Expiration Date Model / Serial / Lot Biocomposite Swivelock Suture [place] Implanted:Qty: 2 on 11/18/2018 by Panchito Wright DO at OR [facility] Left: Shoulder 12/17/2019 [id number] / / [id number] documented as of this encounter Care Teams Equine Dentist Relationship Specialty Start Date End Date Angelique Hook DO PCP - General Family Medicine 02/26/22 documented as of this encounter
--- OUTSIDE RECORDS SUMMARY | 2023-12-19 15:37 | External Medical Summary ---
Author Name Unknown Address Unknown Organization K01:[facility] - [address] [address] Laboratory Report Ordering Provider Test Date Status KATE MCKEON 11/05/2023 11:00:04 Final Observation Date Value Abnormality Reference (Units ) Status TSH 11/05/2023 11:00:04 2.90 0.27-4.20 (uIU/mL) Final Performing Location [facility] - [address] [place] [address]
--- OUTSIDE RECORDS SUMMARY | 2023-12-19 15:37 | External Medical Summary | Summary of Care ---
Author Name Unknown Organization [facility] Address [address] [place] [address] Phone [phone] Care Team Providers Care Car Filler Name Role Phone Hook, Angelique Barryvarghese Primary Care Provider +1 [phone] Encounter Details Date Type Department Care Team (Late st Contact Info) Description 11/11/2023 Telephone Family Practice [address] [place] [address] Hayes Pierre PA-C [address] [place] [place] [address] Allergies Active Allergy Reactions [...] hemoglobin A1c goal of less than 7.0% ([facility]) Test blood sugar up to three times daily as directed 300 Strip 3 08/29/2022 Active OneTouch Delica Plus [id number]: Type 2 diabetes mellitus with hemoglobin A1c [...] mRNA, LNP-s, No Pre serve, 2-Dose Series ([employer]) 07/05/2022,09/24/2021,02/03/2021,12/19 Hepatitis B, 20+ yrs 02/09/2015,10/07/2014,06/06 Pneumococcal Conjugate Vacci ne, 20-valent (Ytkhpbs53) 04/10/2023 Pneumococcal Polysaccharide PPV23 (Pneumovax) 06/06/2014 Seasonal [...] just started on Eliquis and Metoprolol today. FYI * Telephone Encounter - Hayes Pierre PA-C - 11/11/2023 3:13 PM EST Aware of these findings. 100% AFib with average rate just above 100 beats per minute. He was completely asymptomatic at the time of my last visit. Okay to wait until he sees sales enablement specialist next week. Please just confirm that he has started an anticoagulant. documented in this encounter Plan of Treatment Upcoming Encounters Date Type Department Care Team (Late st Contact Info) Description 11/19/2023 10:00 AM EST Office Visit Cardiology, [facility] [address] [facility] [place] [address] Sylvester Farrell, [address] [facility] [place] [address] 01/20/2024 10:30 AM EST Cardiac Studies [place] [place] [address] [place] [address] 03/08/2024 11:30 AM EDT Office Visit Cardiology, [facility] [address] [place] [address] Sylvester Farrell, [address] [place] [address] 03/30/2024 8:00 AM EDT Office Visit Pharmacy [place] [place] [place] [address] [facility] [address] [place] [address] 04/29/2024 12:00 PM EDT Office Visit Family Practice [place] [address] [place] [place] [address] Hayes Pierre PA-C [address] [place] [place] [address] Health Maintenance Due Date Last Done Comments [...] this encounter Medical Devices Implanted Type Area Tape Cutter Device Identifier Shelf Expiration Date Model / Serial / Lot Biocomposite Swivelock Suture [place] Implanted:Qty: 2 on 11/18/2018 by Panchito Wright DO at OR [facility] Left: Shoulder 12/17/2019 [id number] / / [id number] documented as of this encounter Care Teams Car Filler Relationship Specialty Start Date End Date Angelique Hook DO PCP - General Family Medicine 02/26/22 documented as of this encounter
--- OUTSIDE RECORDS SUMMARY | 2023-12-19 15:37 | External Medical Summary ---
Author Name Unknown Address Unknown Organization K01:[facility] [address] [facility] [address] [facility] [address] Laboratory Report Ordering Provider Test Date Status KATE MCKEON 11/05/2023 11:00:04 Final Observation Date Value Abnormality Reference (Units ) Status WBC, Total 11/05/2023 11:00:04 5.28 4.00-10.80 (K/uL) Final RBC 11/05/2023 11:00:04 4.93 4.50-5.25 (M/uL) Final Hemoglobin 11/05/2023 11:00:04 15.3 14.0-16.8 (g/dL) Final HCT 11/05/2023 11:00:04 47.2 40.0-48.4 (%) Final MCV 11/05/2023 11:00:04 95.7 82.0-99.5 (fL) Final MCH 11/05/2023 11:00:04 31.0 27.0-34.0 (pg) Final MCHC 11/05/2023 11:00:04 32.4 32.0-36.0 (g/dL) Final RDW 11/05/2023 11:00:04 13.2 11.5-15.5 (%) Final Platelets 11/05/2023 11:00:04 192 140-400 (K/uL) Final MPV 11/05/2023 11:00:04 10.3 6.6-11.1 (fL) Final Nucleated erythrocytes/100 leukocytes [Ratio] in Blood by Automated count 11/05/2023 11:00:04 0 <=0 (/100 WBCs) Final Performing Location [facility] [place] [address] [facility] [address]
--- OUTSIDE RECORDS SUMMARY | 2023-12-19 15:37 | External Medical Summary | Summary of Care ---
Author Name Unknown Organization [facility] Address [address] [facility] [address] Phone [phone] Care Team Providers Care Software Deployment Engineer Name Role Phone Hook, Angelique Barryvarghese Primary Care Provider +1 [phone] Reason for Visit * Reason Onset Date Comments Medication Refill 11/11/2023 Encounter Details Date Type Department Care Team (Late st Contact Info) Description 11/11/2023 Refill Cardiology, [facility] [address] [place] [address] Sylvester Farrell DO [address] [place] [address] Allergies Active Allergy Reactions Criticality Noted Date [...] 50+Men Oral Tablet Take by mouth. 0 Ac tive OneTouch Ultra Blue In Vitro Strip (Glucose Blood)Indications:Ty pe 2 diabetes mellitus with hemoglobin A1c goal of less than 7.0% (HCC) Test blood sugar up to three times daily as directed 300 Strip 3 08/29/2022 Active OneTouch Delica Plus [id number] :Type 2 diabetes mellitus with hemoglobin A1c goal of less than 7.0% (HCC) Use to test blood glucose directed 3 times daily daily 300 Each 3 08/29/2022 Active metFORMIN HCl 1000 MG Oral Tablet (Glucophage)Indicati ons:Type 2 diabetes mellitus with hemoglobin A1c goal of less than 7.0% (HCC) TAKE ONE TABLET BY MOUTH TWICE DAILY WITH MEALS.( MORNING AND EVENING MEALS) 180 Tablet 3 12/09/2022 Active Jardiance 25 MG Oral Tablet (Empagliflozin)Indic ations:Type 2 diabetes mellitus with hemoglobin A1c goal of less than 7.0% (HCC) TAKE 1 TABLET BY MOUTH ONCE DAILY 90 Tablet 3 05/10/2023 Active Meloxicam 15 MG Oral TabletIndications:Pr imary osteoarthritis of first carpometacarpal joint of left hand Take 1 Tablet by mouth in the morning. for pain.. 90 Tablet 3 05/12/2023 Active Losartan Potassium 25 MG Oral Tablet (Cozaar)Indications: Dyslipidemia, goal LDL below 70,Ascending aorta enlargement (HCC) Take 1 Tablet by mouth in the morning. 90 Tablet 1 07/14/2023 Active Rosuvastatin Calcium 40 MG Oral Tablet (Crestor)Indications :Dyslipidemia, goal LDL below 70,Ascending aorta enlargement (HCC) Take 1 Tablet by mouth in the morning. 90 Tablet 1 07/14/2023 Active Dulaglutide 1.5 MG/0.5ML Subcutaneous Solution Pen-injector (Trulicity)Indicatio ns:Type 2 diabetes mellitus with hemoglobin A1c [...] before bedtime. 180 Tablet 3 11/11/2023 Active Apixaban 5 MG Oral Tablet (Eliquis) Take 1 Tablet by mouth in the morning and 1 Tablet before bedtime. 180 Tablet 3 11/11/2023 3 Discontinu ed(Refill) Metoprolol Succinate ER 25 MG Oral Tablet Extended Release 24 Hour (toPROL XL) Take 1 Tablet by mouth in the morning. 30 Tablet 5 11/11/2023 3 Discontinu ed(Refill) documented as of this encounter (statuses as [...] mRNA, LNP-s, No Pre serve, 2-Dose Series ([employer] 07/05/2022,09/24/2021,02/03/2021,12/19 Hepatitis B, 20+ yrs 02/09/2015,10/07/2014,06/06 Pneumococcal Conjugate Vacci ne, 20-valent (Krjnbzc34) 04/10/2023 Pneumococcal Polysaccharide PPV23 (Pneumovax) 06/06/2014 Seasonal Influenza Virus Vac cine, Unspecified Formulation 09/11/2021 Seasonal Influenza, PF, 6 M & above, IM , (FluLaval or Fluzone) 08/09/2022,08/17/2020,08/31/2019,08/17 Seasonal Influenza, Split, I IV3, With Preserve, Inj 08/31/2017,09/03/2016,08/05/2015,08/17,08/31/2013,08/31/2012,09/05/20,08/31/2010 09/02/2015 TDAP (age 10 and older)(Boostrix) 10/28/2023, [...] Note - Kayley Bond CRNP - 11/11/2023 2:31 PM ESTAddended by: KAYLEY BOND on: 11/11/2023 02:31 PM Modules accepted: Orders * Telephone Encounter - Kayley Bond CRNP - 11/11/2023 2:30 PM EST Signed Prescriptions: Disp Refills Apixaban 5 MG Oral Tablet (Eliquis) 180 Ta*3 Sig: Take 1 Tabletby mouth in the morning and 1 Tablet before bedtime.Authorizing Provider: KAYLEY BOND Metoprolol Succinate ER 25 MG Oral Tablet *30 Tab*5 Sig: Take 1 Tablet by mouth in the morning.Keely ortega Provider: KAYLEY BOND * Addendum Note - Kyle Hendricks RN - 11/11/2023 2:16 PM ESTAddended by: KYLE HENDRICKS on: 11/11/2023 02:16 PM Modules accepted: Orders * Telephone Encounter - Kyle Hendricks RN - 11/11/2023 2:15 PM EST Pending Prescriptions: Disp Refills Apixaban 5 MG Oral Tablet (Eliquis) 180 Ta*3 Sig: Take 1 Tablet by mouth in the morning and 1 Tablet before bedtime. Metoprolol Succinate ER 25 MG Oral Tablet*30 Tab*5 Sig: Take 1 Tablet by mouth in the morning. Last Visit: 01/30/2023 (in office), Visit date not found (telemedicine) Next Visit: 11/19/2023 Last medication order date: new Have you choosen a preferred pharm?? 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 Dyslipidemia, goal LDL below 70 E78.5 Ascending aorta enlargement (HCC) I77.89 Dilated aortic root (HCC) I77.810 Primary osteoarthritis of first carpometacarpal joint of left hand M18.12 B12 deficiency E53.8 Dermatofibroma of right lower leg D23.71 Hx of squamous cell carcinoma of skin Z85.828 Type 2 diabetes mellitus with diabetic polyneuropathy (HCC) E11.42 Labs: Lab Results Component Value Date/Time CREATININE - [facility] 0.8 10/22/2023 11:38 AM CREATININE - [facility] 0.9 06/28/2020 12:08 PM CREATININE, RANDOM URINE - [facility] 111 04/04/2023 11:11 AM CREATININE, RANDOM URINE - [facility] 70 06/28/2020 12:08 PM CREATININE-OUTSIDE LAB 0.8 06/08/2019 12:00 AM Lab Results Component Value Date/Time POTASSIUM - [facility] 4.7 10/22/2023 11:38 AM POTASSIUM - [facility] 4.5 06/28/2020 12:08 PM POTASSIUM-OUTSIDE LAB 4.5 06/08/2019 12:00 AM Lab Results Component Value Date/Time TSH - [facility] 2.90 11/05/2023 11:00 AM Lab Results Component Value Date/Time LDL (CALCULATED)-OUTSIDE LAB 72 06/08/2019 12:00 AM LDL (CALCULATED)-OUTSIDE LAB 80 09/25/2018 12:00 AM LDL (DIRECT MEASURE)-OUTSIDE LAB 90 03/31/2018 12:00 AM LDL (DIRECT MEASURE)-OUTSIDE LAB 111 10/01/2017 12:00 AM LDL CHOLESTEROL (CALCULATED) - [facility] 84 10/22/2023 11:38 AM LDL CHOLESTEROL (CALCULATED) - [facility] 83 04/04/2023 09:41 AM LDL CHOLESTEROL (CALCULATED) - [facility] 85 06/28/2020 12:08 PM LDL CHOLESTEROL (CALCULATED) - [facility] 93 12/28/2019 11:19 AM LDL CHOLESTEROL (DIRECT MEASURE) - [facility] NOT APPLICABLE 06/28/2020 12:08 PM LDL CHOLESTEROL (DIRECT MEASURE) - [facility] NOT APPLICABLE 12/28/2019 11:19 AM Lab Results Component Value Date/Time ALT - [facility] 28 11/05/2023 11:00 AM ALT - [facility] 33 06/28/2020 12:08 PM ALT-OUTSIDE LAB 32 10/01/2017 12:00 AM Hemoglobin AIC Results: Lab Results Component Value Date/Time HEMOGLOBIN A1C - [facility] 7.1 (H) 10/22/2023 11:38 AM HEMOGLOBIN A1C - [facility] 6.5 (H) 04/04/2023 09:41 AM HEMOGLOBIN A1C - [facility] 7.6 (H) 08/23/2022 01:27 PM HEMOGLOBIN A1C - [facility] 7.2 (H) 06/28/2020 12:08 PM HEMOGLOBIN A1C - [facility] 6.7 (H) 04/08/2019 03:46 PM HEMOGLOBIN A1C - [facility] 8.4 (H) 02/02/2014 10:11 AM * Addendum Note - Kayley Bond CRNP - 11/11/2023 1:47 PM ESTAddended by: KAYLEY BOND on: 11/11/2023 01:47 PM Modules accepted: Orders * Telephone Encounter - Kyle Hendricks RN - 11/11/2023 1:42 PM EST Called [...] would also like him to start metoprolol succinate 25 mg daily. Keep follow up with Dr. Farrell as scheduled. GEOVANNY Avilez * Telephone Encounter - Kyle Hendricks RN - 11/11/2023 9:39 AM EST Patient [...] - 11/11/2023 9:32 AM EST Transferred to [facility]. documented in this encounter Plan of Treatment Upcoming Encounters Date Type Department Care Team (Late st Contact Info) Description 11/19/2023 10:00 AM EST Office Visit Cardiology, [facility] [address] [place] [address] Sylvester Farrell, [address] [place] [address] 01/20/2024 10:30 AM EST Cardiac Studies [place] [address] [place] [address] 03/08/2024 11:30 AM EDT Office Visit Cardiology, [facility] [address] [place] [address] Sylvester Farrell, [address] [place] [address] 03/30/2024 8:00 AM EDT Office [place] [address] [place] [address] [facility] [address] [place] [address] 04/29/2024 12:00 PM EDT Office Visit Family Practice [place] [address] [place] [place] [address] [place] [address] Hayes Pierre PA-C [address] [place] [address] Health Maintenance Due Date Last Done Comments [...] this encounter Medical Devices Implanted Type Area Customer Success Representative Device Identifier Shelf Expiration Date Model / Serial / Lot Biocomposite Swivelock Suture [place] Implanted:Qty: 2 on 11/18/2018 by Panchito Wright DO at OR [facility] Left: Shoulder 12/17/2019 [id number] / / [id number] documented as of this encounter Care Teams Software Deployment Engineer Relationship Specialty Start Date End Date Angelique Hook DO PCP - General Family Medicine 02/26/22 documented as of this encounter
--- OUTSIDE RECORDS SUMMARY | 2023-12-19 15:37 | External Medical Summary | Summary of Care ---
Author Name Unknown Organization [facility] Address [address] [place] [facility] [place] [place] [address] Phone [phone] Care Team Providers Care High School Foreign Language Teacher Name Role Phone Roscoe Hookison Yissel AGUILLON Primary Care Provider [phone] Encounter Details Date Type Department Care Team (Late st Contact Info) Description 11/11/2023 Telephone Cardiology, [facility] [address] [place] [address] Sylvester Farrell DO [address] [place] [address] Allergies Active Allergy Reactions Criticality Noted Date [...] goal of less than 7.0% ([facility]) Test blood sugar up to three times daily as directed 300 Strip 3 08/29/2022 Active OneTouch Delica Plus [id number]: Type 2 diabetes mellitus with hemoglobin A1c [...] mRNA, LNP-s, No Pre serve, 2-Dose Series ([employer]) 07/05/2022,09/24/2021,02/03/2021,12/19 Hepatitis B, 20+ yrs 02/09/2015,10/07/2014,06/06 Pneumococcal Conjugate Vacci ne, 20-valent (Niaerwh20) 04/10/2023 Pneumococcal Polysaccharide PPV23 (Pneumovax) 06/06/2014 Seasonal [...] encounter Miscellaneous Notes * Telephone Encounter - Kyle Canchola RN - 11/11/2023 1:42 PM EST Called and spoke to the patient and reviewed the message with I'm from Sharmin Keller. He stated he understood. * Telephone Encounter - Sharmin Keller CRNP - 11/11/2023 10:16 AM EST Please keep follow up as scheduled with Dr. Farrell. Anticipate EKG and ambulatory monitor. GEOVANNY Avilez * Telephone Encounter - Kyle [...] 11/19/2023 10:00 AM EST Office Visit Cardiology, [facility] [address] [facility] [place] [address] Sylvester Farrell, [address] [facility] [place] [address] 01/20/2024 10:30 AM EST Cardiac Studies [place] [address] [address] [place] [address] 03/08/2024 11:30 AM EDT Office Visit Cardiology, [facility] [address] [facility] [place] [address] Sylvester Farrell, DO [address] [facility] [place] [address] 03/30/2024 8:00 AM EDT Office Visit Pharmacy [address] [place] [address] [place] [facility] [address] [place] [address] 04/29/2024 12:00 PM EDT Office Visit Family Practice [address] [place] [address] Hayes Pierre PA-C [address] [facility] [place] [address] Health Maintenance Due Date Last Done Comments [...] this encounter Medical Devices Implanted Type Area Transitions Rn Care Coordinator Device Identifier Shelf Expiration Date Model / Serial / Lot Biocomposite Swivelock Suture [place] Implanted:Qty: 2 on 11/18/2018 by Panchito Wright DO at OR [facility] Left: Shoulder 12/17/2019 [id number] / / [id number] documented as of this encounter Care Teams High School Foreign Language Teacher Relationship Specialty Start Date End Date Angelique Hook DO PCP - General Family Medicine 02/26/22 documented as of this encounter
--- OUTSIDE RECORDS SUMMARY | 2023-12-19 15:37 | External Medical Summary | Summary of Care ---
Author Name Unknown Organization [facility] Address [address] [place] [address] Phone [phone] Care Team Providers Care Botany Professor Name Role Phone Hook, Angelique Barryvarghese Primary Care Provider +1 -[phone] Encounter Details Date Type Department Care Team (Late st Contact Info) Description 11/11/2023 Telephone Family Practice [address] [place] [address] Hayes Pierre PA-C [address] [place] [address] Allergies Active Allergy Reactions [...] A1c goal of less than 7.0% ([facility]) Test blood sugar up to three times daily as directed 300 Strip 3 08/29/2022 Active OneTouch Delica Plus [id number]: Type 2 diabetes mellitus with hemoglobin A1c [...] mRNA, LNP-s, No Pre serve, 2-Dose Series ([employer]) 07/05/2022,09/24/2021,02/03/2021,12/19 Hepatitis B, 20+ yrs 02/09/2015,10/07/2014,06/06 Pneumococcal Conjugate Vacci ne, 20-valent ([id number]) 04/10/2023 Pneumococcal Polysaccharide PPV23 (Pneumovax) 06/06/2014 Seasonal [...] visit. 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 Please just confirm that he has started an anticoagulant. documented in this encounter Plan of Treatment Upcoming Encounters Date Type Department Care Team (Late st Contact Info) Description 11/19/2023 10:00 AM EST Office Visit Cardiology, [facility] [address] [facility] [place] [address] Sylvester Farrell, DO [address] [place] [address] 01/20/2024 10:30 AM EST Cardiac Studies Cardiac Studies [address] [place] [address] 03/08/2024 11:30 AM EDT Office Visit Cardiology, [facility] [address] [place] [address] Sylvester Farrell, DO [address] [place] [address] 03/30/2024 8:00 AM EDT Office Visit Pharmacy [place] [facility] [place] [address] [facility] [address] [place] [address] 04/29/2024 12:00 PM EDT Office Visit Family Practice [place] [place], [place] [address] Hayes Pierre PA-C [address] [place] [address] Health Maintenance Due Date Last Done Comments COVID-19 Vaccine ( season) 2023 07/05/2022, 09/24/2021, 02/03/2021, Additional history exists Influenza Vaccine (FLU shot) (#1) 2023 08/09/2022, 09/11/2021, 08/17/2020, Additional history exists Albumin/Creatinine Ratio 04/04/2024 023, 08/23/2022, 02/13/2022, Additional history exists B-12 04/04/2024 04/04/2023, 100 05/2022, 02/13/2022, Additional history exists Depression Screening [...] this encounter Medical Devices Implanted Type Area Executive Vice President Device Identifier Shelf Expiration Date Model / Serial / Lot Biocomposite Swivelock Suture [place] Implanted:Qty: 2 on 11/18/2018 by Panchito Wright DO at OR [facility] Left: Shoulder 12/17/2019 [id number] / / [id number] documented as of this encounter Care Teams Botany Professor Relationship Specialty Start Date End Date Angelique Hook DO PCP - General Family Medicine 02/26/22 documented as of this encounter
--- OUTSIDE RECORDS SUMMARY | 2023-12-19 15:37 | External Medical Summary | Summary of Care ---
Author Name Unknown Organization [facility] Address [address] [place] [place] [address] Phone [phone] Care Team Providers Care Tobacco Stripper Hand Name Role Phone Roscoe Hookison Yissel AGUILLON Primary Care Provider +1 [phone] Encounter Details Date Type Department Care Team (Late st Contact Info) Description 11/11/2023 Telephone Cardiology, [facility] [address] [place] [address] Sylvester Farrell DO [address] [place] [address] Allergies Active Allergy Reactions Criticality Noted Date [...] hemoglobin A1c goal of less than 7.0% ([facility]) Test blood sugar up to three times daily as directed 300 Strip 3 08/29/2022 Active OneTouch Delica Plus [id number]: Type 2 diabetes mellitus with hemoglobin A1c [...] mRNA, LNP-s, No Pre serve, 2-Dose Series ([employer]) 07/05/2022,09/24/2021,02/03/2021,12/19 Hepatitis B, 20+ yrs 02/09/2015,10/07/2014,06/06 Pneumococcal Conjugate Vacci ne, 20-valent ([id number]) 04/10/2023 Pneumococcal Polysaccharide PPV23 (Pneumovax) 06/06/2014 Seasonal [...] encounter Miscellaneous Notes * Telephone Encounter - Sharmin Keller CRNP [...] 11/19/2023 10:00 AM EST Office Visit Cardiology, [facility] [address] [facility] [place] [address] Sylvester Farrell, 132 [facility] [place] [address] 01/20/2024 10:30 AM EST Cardiac [place] [facility] [place] [address] [address] [place] [address] 03/08/2024 11:30 AM EDT Office Visit Cardiology, [facility] [address] [place] [address] Sylvester Farrell, 132 [facility] [place] [address] 03/30/2024 8:00 AM EDT Office Visit [facility]acy [place] [address] [place] [address] [address] [facility] [address] [place] [place] [address] 04/29/2024 12:00 PM EDT Office [facility] [address] [place] [address] Hayes Pierre PA-C [address] [place] [address] Health Maintenance Due Date Last Done Comments [...] this encounter Medical Devices Implanted Type Area Dog Walker Device Identifier Shelf Expiration Date Model / Serial / Lot Biocomposite Swivelock Suture [place] Implanted:Qty: 2 on 11/18/2018 by Panchito Wright DO at OR [facility] Left: Shoulder 12/17/2019 [id number] / / [id number] documented as of this encounter Care Teams Tobacco Stripper Hand Relationship Specialty Start Date End Date Angelique Hook DO PCP - General Family Medicine 02/26/22 documented as of this encounter
--- OUTSIDE RECORDS SUMMARY | 2023-12-19 15:37 | External Medical Summary | Summary of Care ---
Author Name Unknown Organization [facility] Address [address] [facility] [address] Phone [phone] Care Team Providers Care Inside Tester Name Role Phone Roscoe Hookison Yissel AGUILLON Primary Care Provider +1 [phone] Encounter Details Date Type Department Care Team (Late st Contact Info) Description 11/11/2023 Telephone Cardiology, [facility] [address] [place] [address] Sylvester Farrell DO [address] [place] [address] Allergies Active Allergy Reactions Criticality Noted Date [...] hemoglobin A1c goal of less than 7.0% ([facility]) Test blood sugar up to three times daily as directed 300 Strip 3 08/29/2022 Active OneTouch Delica Plus [id number]: Type 2 diabetes mellitus with hemoglobin A1c [...] mRNA, LNP-s, No Pre serve, 2-Dose Series ([employer]) 07/05/2022,09/24/2021,02/03/2021,12/19 Hepatitis B, 20+ yrs 02/09/2015,10/07/2014,06/06 Pneumococcal Conjugate Vacci ne, 20-valent ([id number]) 04/10/2023 Pneumococcal Polysaccharide PPV23 (Pneumovax) 06/06/2014 Seasonal [...] 11/19/2023 10:00 AM EST Office Visit Cardiology, [facility] [address] [place] [address] Sylvester Farrell, 132 [place] [address] 01/20/2024 10:30 AM EST Cardiac Studies Cardiac Studies [place] [facility] [place] [id number] 03/08/2024 11:30 AM EDT Office Visit Cardiology, [facility] [address] [place] [address] Sylvester Farrell, 132 [place] [address] 03/30/2024 8:00 AM EDT Office Visit Pharmacy [place] [address] [place] [address] S[facility] [place] [address] [place] [address] 04/29/2024 12:00 PM EDT Office Visit Family Practice [place] [facility] [address] [place] [address] Hayes Pierre PA-C [address] [place] [address] Health Maintenance Due Date Last Done Comments [...] this encounter Medical Devices Implanted Type Area Neon Glass Bender Device Identifier Shelf Expiration Date Model / Serial / Lot Biocomposite Swivelock Suture [place] Implanted:Qty: 2 on 11/18/2018 by Panchito Wright DO at OR [facility] Left: Shoulder 12/17/2019 [id number] / / [id number] documented as of this encounter Care Teams Inside Tester Relationship Specialty Start Date End Date Angelique Hook DO PCP - General Family Medicine 02/26/22 documented as of this encounter
--- OUTSIDE RECORDS SUMMARY | 2023-12-19 15:37 | External Medical Summary | Summary of Care ---
Author Name Unknown Organization [facility] Address [address] [facility] [address] Phone [phone] Care Team Providers Care Returns Clerk Name Role Phone Hook, Angelique Barryvarghese Primary Care Provider +1 [phone] Reason for Visit * Reason Onset Date Comments Medication Refill 11/11/2023 Encounter Details Date Type Department Care Team (Late st Contact Info) Description 11/11/2023 Refill Cardiology, [facility] [address] [place] [address] Sylvester Farrell DO [address] [place] [address] Allergies Active Allergy Reactions Criticality Noted Date [...] Strip 3 08/29/2022 Active OneTouch Delica Plus [id number]: Type 2 diabetes mellitus with hemoglobin A1c [...] mRNA, LNP-s, No Pre serve, 2-Dose Series ([employer]) 07/05/2022,09/24/2021,02/03/2021,12/19 Hepatitis B, 20+ yrs 02/09/2015,10/07/2014,06/06 Pneumococcal Conjugate Vacci ne, 20-valent ([id number]) 04/10/2023 Pneumococcal Polysaccharide PPV23 (Pneumovax) 06/06/2014 Seasonal [...] encounter Miscellaneous Notes * Addendum Note - Kyle Hendricks RN [...] A1c goal of less than 7.0% (HCC) E11.9 Obesity, Class I, BMI 30.0-34.9 (see [...] 11/19/2023 10:00 AM EST Office Visit Cardiology, [facility] [address] [place] [address] Sylvester Farrell, [address] [place] [address] 01/20/2024 10:30 AM EST Cardiac Studies Cardiac Studies [place] [facility] [address] [place] [id number] 03/08/2024 11:30 AM EDT Office Visit Cardiology, [facility] [address] [place] [address] Sylvester Farrell, 132 [place] [address] 03/30/2024 8:00 AM EDT Office Visit Pharmacy [place] [facility] [address]ava [address] [place], [place] [address] Sonia [facility] [address] [place] [address] 04/29/2024 12:00 PM EDT Office Visit Family Practice [place]onia [address] [place] [address] Hayes Pierre PA-C [address] [place] [place] [address] Health Maintenance Due Date Last Done Comments [...] this encounter Medical Devices Implanted Type Area Vascular Nurse Device Identifier Shelf Expiration Date Model / Serial / Lot Biocomposite Swivelock Suture [place] Implanted:Qty: 2 on 11/18/2018 by Panchito Wright DO at OR [facility] Left: Shoulder 12/17/2019 [id number] / / [id number] documented as of this encounter Care Teams Returns Clerk Relationship Specialty Start Date End Date Angelique Hook DO PCP - General Family Medicine 02/26/22 documented as of this encounter
--- OUTSIDE RECORDS SUMMARY | 2023-12-19 15:37 | External Medical Summary | Summary of Care ---
Author Name Unknown Organization [facility] Address [address] [place] [address] Phone [phone] Care Team Providers Care Physical Optics Teacher Name Role Phone HookAngelique davila Barryvarghese Primary Care Provider +1 [phone] Reason for Visit * Reason Comments Outpatient Testing Encounter Details Date Type Department Care Team (Late st Contact Info) Description 11/05/2023 11:00 AM EST [facility] [address] [facility] [place] [address] [facility] [address] [facility] [place] [id number] Type 2 diabetes mellitus with hemoglobin A1c goal of less than 7.0% (HCC); Benign essential HTN; New onset atrial fibrillation (HCC); Atrial fibrillation, unspecified type (HCC) Allergies Active Allergy Reactions Criticality Noted Date [...] Strip 3 08/29/2022 Active OneTouch Delica Plus [id number]: Type 2 diabetes mellitus with hemoglobin A1c [...] mRNA, LNP-s, No Pre serve, 2-Dose Series ([employer]) 07/05/2022,09/24/2021,02/03/2021,12/19 Hepatitis B, 20+ yrs 02/09/2015,10/07/2014,06/06 Pneumococcal Conjugate Vacci ne, 20-valent ([id number]) 04/10/2023 Pneumococcal Polysaccharide PPV23 (Pneumovax) 06/06/2014 Seasonal [...] on file documented as of this encounter Plan of Treatment Upcoming Encounters Date Type Department Care Team (Late st Contact Info) Description 11/19/2023 10:00 AM EST Office Visit Cardiology [facility] [address] [place] [address] Sylvester Farrell, [address] [place] [address] 01/20/2024 10:30 AM EST Cardiac Studies Cardiac Studies [place] [facility] [address] [place] [place] [address] 03/08/2024 11:30 AM EDT Office Visit Cardiology [facility] [address] [place] [address] Sylvester Farrell, [address] [place] [address] 03/30/2024 8:00 AM EDT Office Visit Pharmacy [place] [address] [place] [address] Sonia [facility] [address] [place] [address] 04/29/2024 12:00 PM EDT Office Visit Family Practice [place] S[place] Rub[address]ava [address] [place] [address] Hayes Pierre PA-C [address] [place] [address] Pending Results Name Type Priority Associated Diagnoses Date /Time CBC WITH WBC DIFFERENTIAL Lab Routine Type 2 diabetes mellitus with hemoglobin A1c goal of less than 7.0% (HCC) Benign essential HTN New onset atrial fibrillation (HCC) 11/05/2023 11:00 AM EST TSH WITH FREE T4 IF INDICATED Lab Routine Type 2 diabetes mellitus with hemoglobin A1c goal of less than 7.0% (HCC) Benign essential HTN New onset atrial fibrillation (HCC) 11/05/2023 11:00 AM EST HEPATIC FUNCTION PANEL Lab Routine Type 2 diabetes mellitus with hemoglobin A1c goal of less than 7.0% (HCC) Benign essential HTN New onset atrial fibrillation (HCC) 11/05/2023 11:00 AM EST CBC Lab Routine Type 2 diabetes mellitus with hemoglobin A1c goal of less than 7.0% (HCC) Benign essential HTN New onset atrial fibrillation (HCC) 11/05/2023 11:00 AM EST DIFFERENTIAL, AUTOMATED Lab Routine Type 2 diabetes mellitus with hemoglobin A1c goal of less than 7.0% (HCC) Benign essential HTN New onset atrial fibrillation (HCC) 11/05/2023 11:00 AM EST Health Maintenance Due Date Last Done Comments [...] this encounter Medical Devices Implanted Type Area Mechanical And Auto Body Car Checker Device Identifier Shelf Expiration Date Model / Serial / Lot Biocomposite Swivelock Suture [place] Implanted:Qty: 2 on 11/18/2018 by Panchito Wright DO at OR [facility] Left: Shoulder 12/17/2019 [id number] / / [id number] documented as of this encounter Visit Diagnoses Diagnosis Type 2 diabetes mellitus with hemoglobin A1c goal of less than 7.0% (HCC) Benign essential HTN Essential hypertension, benign Atrial fibrillation, unspecified type (HCC) documented in this encounter Care Teams Physical Optics Teacher Relationship Specialty Start Date End Date Angelique Hook DO PCP - General Family Medicine 02/26/22 documented as of this encounter
--- OUTSIDE RECORDS SUMMARY | 2023-12-19 15:37 | External Medical Summary | Summary of Care ---
Author Name Unknown Organization [facility] Address [address] [place] [address] Phone [phone] Care Team Providers Care Last Dipper Name Role Phone Hook, Angelique Barryvarghese Primary Care Provider +1 [phone] Reason for Visit * Reason Onset Date Comments Abnormal Test Results 11/04/2023 My 11/04 Encounter Details Date Type Department Care Team (Late st Contact Info) Description 11/04/2023 Telephone [facility] [address] [place] [address] Crystal Oconnell DO [address] [place] [address] Abnormal Test Results ([facility] 11/04) Allergies Active Allergy Reactions Criticality Noted Date Comments Lisinopril Cough Medium 08/04/2014 Penicillins 11/30/2010 documented as of this encounter (statuses as of 11/04/2023) Medications Medication Sig Dispensed Refills Start Date [...] Strip 3 08/29/2022 Active OneTouch Delica Plus [id number]: Type 2 diabetes mellitus with hemoglobin A1c [...] Active Dulaglutide 1.5 MG/0.5ML Subcutaneous Solution [facility]injector ([facility])Indication s:Type 2 diabetes mellitus with hemoglobin A1c goal of less than 7.0% (HCC) Inject 1.5 mg under the skin once a week. 6 mL 3 10/28/2023 Active Clindamycin HCl 150 MG Oral Capsule (Cleocin) As needed for dental procedures 0 10/21/2023 Active documented as of this encounter (statuses as of 11/04/2023) Active Problems Problem Noted Date Diagnosed Date [...] as of this encounter (statuses as of 11/04/2023) Resolved Problems Problem Noted Date Diagnosed Date [...] as of this encounter (statuses as of 11/04/2023) Immunizations Name Administration Dates Next Due COVID-19 mRNA, LNP-s, No Pre serve, 2-Dose Series ([employer]) 07/05/2022,09/24/2021,02/03/2021,12/19 Hepatitis B, 20+ yrs 02/09/2015,10/07/2014,06/06 Pneumococcal Conjugate Vacci ne, 20-valent ([id number]) 04/10/2023 Pneumococcal Polysaccharide PPV23 (Pneumovax) 06/06/2014 Seasonal [...] encounter Miscellaneous Notes * Telephone Encounter - Ene Lopez LPN - 11/04/2023 2:15 PM EST MyG sent to patient * Telephone Encounter - Crystal Oconnell DO - 11/04/2023 2:10 PM EST It was recommend that he have his labs completed, need cbc done And then cardiology would send in medication Please come in for labs yanira * Telephone Encounter - Ene Lopez LPN - 11/04/2023 10:37 AM EST Spoke with patients and it does not appear that medication was sent to pharmacy. would like to know if this is something that we are going to prescribe or if prescription should come from Dr Farrell * Telephone Encounter - Crystal Oconnell DO - 11/04/2023 7:23 AM EST Please call patient and follow-up with labs Was found to be in new onset AFib at last visit He was supposed to get a CBC done and start on Eliquis documented in this encounter Plan of Treatment Upcoming Encounters Date Type Department Care Team (Late st Contact Info) Description 11/19/2023 10:00 AM EST Office Visit [facility] [place] [address] Sylvester Farrell, 132 [facility] [place] [address] 01/20/2024 10:30 AM EST Cardiac Studies [place] [address] [place] [address] 03/08/2024 11:30 AM EDT Office Visit Cardiology, [facility] [place] [address] Sylvester Farrell, 132 [facility] [place] [address] 03/30/2024 8:00 AM EDT Office [place] [address] [address] [place] [address] S[facility] [address] [place] [address] 04/29/2024 12:00 PM EDT Office Visit Family Practice [address] [place] [address] Hayes Pierre PA-C [address] [place] [address] Health Maintenance Due Date Last Done Comments [...] this encounter Medical Devices Implanted Type Area Business Taxes Specialist Device Identifier Shelf Expiration Date Model / Serial / Lot Biocomposite Swivelock Suture [place] Implanted:Qty: 2 on 11/18/2018 by Panchito Wright DO at OR [facility] Left: Shoulder 12/17/2019 [id number] / / [id number] documented as of this encounter Care Teams Last Dipper Relationship Specialty Start Date End Date Angelique Hook DO PCP - General Family Medicine 02/26/22 documented as of this encounter
--- OUTSIDE RECORDS SUMMARY | 2023-12-19 15:38 | External Medical Summary | Summary of Care ---
Author Name Unknown Organization [facility] Address [address] [place] [address] Phone [phone] Care Team Providers Care Job Press Feeder Name Role Phone Angelique Hook DO Primary Care Provider Un available Reason for Visit * Reason Comments Routine Exam Questioning wart on 3rd digit of right hand. 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 0 Ac tive CDSM Interactive SolutionsTouch Ultra Blue In Vitro Strip (Glucose Blood)Indications:Ty pe 2 diabetes mellitus with hemoglobin A1c goal of less than 7.0% (HCC) Test blood sugar up to three times daily as directed 300 Strip 3 08/29/2022 Active OneTouch Delica Plus [id number] :Type 2 diabetes mellitus with hemoglobin A1c [...] needed for dental procedures 0 10/21/2023 Active Dulaglutide 1.5 MG/0.5ML Subcutaneous Solution Pen-injector (Trulicity)Indicatio ns:Type 2 diabetes mellitus with hemoglobin A1c goal of less than 7.0% (HCC) Inject 1.5 mg under the skin once a week. 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 10/21/2010 10/27/2018 II A HLP (goal LDL below 130) 10/21/2010 04/06/2014 DVT S/P CHEMO 2000 10/21/2010 2 PULMONARY EMBOLUS S/P CHEMO 2000 10/21/2010 08/12/2012 Screening for prostate cancer 10/21/2010 01/29/2011 documented as of this encounter (statuses as of 10/31/2023) Immunizations Name Administration Dates Next Due COVID-19 mRNA, LNP-s, No Pre serve, 2-Dose Series ([employer]) 07/05/2022,09/24/2021,02/03/2021,12/19 Hepatitis B, 20+ yrs 02/09/2015,10/07/2014,06/06 Pneumococcal Conjugate Vacci ne, 20-valent ([id number]) 04/10/2023 Pneumococcal Polysaccharide PPV23 (Pneumovax) 06/06/2014 Seasonal [...] Never Smokeless Tobacco: Former Snuff Quit: 11/30/1987 Tobacco Cessation:Counseling Given: Not Answered Alcohol Use Standard Drinks/Week Comments Yes 0 [...] Sign Reading Time Taken Comments Blood Pressure 118/62 10/28/2023 9:43 AM EST Pulse 92 10/28/2023 9:43 AM EST Temperature 37.2 C (98.9 F) 10/28/2023 9:43 AM ES T Respiratory Rate 18 10/28/2023 9:43 AM EST Oxygen Saturation 98% 10/28/2023 9:43 AM EST Inhaled Oxygen Concentration - - Weight 105.7 kg (233 lb) 10/28/2023 9:43 AM EST Height 186.7 cm (6' 1.5") 10/28/2023 9:43 AM EST Body Mass Index 30.32 10/28/2023 9:43 AM EST documented in this encounter Progress Notes * Priscilla Mullen LPN - 10/28/2023 10:18 AM EST Pre-Administration Time Out Procedure Performed: Yes Patient Identified (Ask Name/Date of ): Yes Does the patient have a fever greater than 101 degrees today? No Patient allergic to latex? No Has the patient ever fainted after receiving an injection? No VFC Stock: No Immunization(s) verified: Yes, Immunization Name: Tdap (Boostrix), VIS Sheet(s) given: Yes Verified Side and Site: Yes Verified Shot(s) with Parent(s)/Patient: Yes * Hayes Pierre PA-C - 10/28/2023 9:52 AM EST Images from the original note were not included. History of Present Illness Buster Beaulieu is a 63 year old male that presents for routine visit. He otherwise reports feeling generally well. History of type 2 diabetes. A1c was 7.1 in 10/2023. He follows with [facility], last visit 06/2023. He is up-to-date on yearly eye exams Currently denies any significant neuropathy in feet. Still tries to walk 2-3 miles about 3 days/week. Blood pressure very well-controlled. LDL was again slightly elevated and unchanged at 84 in 10/2023. Continues on max dose Crestor 40 mg. He has a history of intolerance to Zetia. Follows with Cardiology, last visit 01/2023. They recommend continuing Crestor. He can walk up at least 3 flights of steps without symptoms of chest pain orshortness of breath. Also hx of mildly dilated ascending aorta - last echo 12/2022 showed normal EF and 4.3cm thoracic aorta. They check yearly. Continues on aspirin. 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 Had chemo at that time along with surgery. States he's been doing well since then. Last colonoscopy 2020, due again in 2023. Follows with Dr. Diana. Continues to follow with dermatology for history of SCC, AK, and dysplastic nevus. Last visit 09/2023. PSA was 1.37 in 03/2023. 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 C18.4 Dyslipidemia, goal LDL below 70 E78.5 Ascending aorta enlargement (HCC) I77.89 Dilated aortic root (HCC) I77.810 Primary osteoarthritis of first carpometacarpal joint of left hand M18.12 B12 deficiency E53.8 Dermatofibroma of right lower leg D23.71 Hx of squamous cell carcinoma of skin Z85.828 Type 2 diabetes mellitus with diabetic polyneuropathy (HCC) E11.42 Review of patient's allergies indicates: Allergen Reactions Lisinopril Cough Penicillins Current Outpatient Medications Medication Sig Dispense Refill ASPIRIN 81 MG PO TABS one tablet daily Centrum Silver 50+Men Oral Tablet Take by mouth. OneTouch Ultra Blue In Vitro Strip (Glucose Blood) Test blood sugar up to three times daily as directed 300 Strip 3 OneTouch Delica Plus [id number] Use to test blood glucose directed 3 [...] 1 Dulaglutide 1.5 MG/0.5ML Subcutaneous Solution Pen-injector (Trulicity) Inject 1.5 mg under the skin once a week. 6 mL 3 triamcinolone acetonide (ARISTOCORT) 0.1 % cream Apply topically to affected area 2 times a day. Toaffected area. 15 g 5 Ketoconazole 2 % cream Apply topically to affected area as needed for Itching. 15 g 1 Clindamycin HCl 150 MG Oral Capsule (Cleocin) As needed for dental procedures No current facility-administered medications for this visit. 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 10/21/2010 DVT S/P CHEMO 199910/21/2010 Dyslipidemia 06/05/2018 Dyslipidemia, goal LDL below 70 LUMBAR DISC DISEASE WITH S1 NERVE ROOT PAIN (RESOLVED) 02/12/2011 NEVI OF CHEST WALL AND SCALP S/P REMOVAL 11/2712/26/2010 Nevus 10/12/2014 0.5 cm lesion of right earlobe - excisonal biopsy with desruction after 10/07/14 Obesity, BMI 30-34 (see actual BMI) 02/11/2012 PULMONARY EMBOLUS S/P CHEMO 2000 10/21/2010 Supraspinatus tendinitis 06/12/2015 Tendinitis of thumb 02/02/2014 Left Past Surgical History: Procedure Laterality Date SWAPNA ANDERSW/ROTATOR CUFF Left 10/26/2018 ARTHROSCOPY SHOULDER ROTATOR CUFF performed by Panchito Wright DO at OR [facility] ARTHSWAPNA DelongW/ROTATOR CUFF Left 11/18/2018 ARTHROSCOPY SHOULDER ROTATOR CUFF performed by Panchito Wright DO at OR [facility] SHOULDER ARTHROSCOPY, BICEPS TENODESIS Left 10/26/2018 ARTHROSCOPY SHOULDER BICEP TENODESIS performed by Panchito Wright DO at OR [facility] SHOULDER ARTHROSCOPY, BICEPS TENODESIS Left 11/18/2018 ARTHROSCOPY SHOULDER BICEP TENODESIS performed by Panchito Wright DO at OR [facility] No family history on file. No family status information on file. Social History Socioeconomic History Marital status: Tobacco Use Smoking status: Never Smokeless tobacco: Former Types: Snuff Quit date: 11/30/1987 Substance and Sexual Activity Alcohol use: Yes Comment: rarely Drug use: No Social Determinants of Health Food Insecurity: No Food Insecurity (04/10/2023) Hunger Vital Sign Worried About Running Out of Food in the Last Year: Never true Ran Out of Food in the Last Year: Never true Review of Systems Constitutional: Negative. Negative for chills and fever. HENT: Negative. Eyes: Negative. Respiratory: Negative. Negative for shortness of breath. Cardiovascular: Negative. Negative for chest pain, palpitations and leg swelling. Gastrointestinal: Negative. Negative for abdominal pain, blood in stool, constipation, diarrhea, nausea and vomiting. Endocrine: Negative. Genitourinary: Negative. Musculoskeletal: Negative. Skin: Negative. Negative for rash. Allergic/Immunologic: Negative. Neurological: Negative. Negative for dizziness and syncope. Hematological: Negative. Psychiatric/Behavioral: Negative. All other systems reviewed and are negative. Physical Exam BP 118/62 | Pulse 92 | Temp 37.2 C (98.9 F) | Resp 18 | Ht 1.867 m (6' 1.5") | Wt 105.7 kg (233lb) | SpO2 98% | BMI 30.32 kg/m | BSA 2.34 m Physical Exam Vitals and nursing note reviewed. Constitutional: Appearance: Normal appearance. He is obese. HENT: Head: Normocephalic and atraumatic. Right Ear: Tympanic membrane, ear canal and external ear normal. Left Ear: Tympanic membrane, ear canal and external ear normal. Nose: Nose normal. Mouth/Throat: Mouth: Mucous membranes are moist. Pharynx: Oropharynx is clear. Eyes: Extraocular Movements: Extraocular movements intact. Conjunctiva/sclera: Conjunctivae normal. Pupils: Pupils are equal, round, and reactive to light. Cardiovascular: Rate and Rhythm: Normal rate. Rhythm irregular. Pulses: Normal pulses. Heart sounds: Normal heart sounds. No murmur heard. Comments: Irregularly irregular rhythm concerning for AFib, however rate is controlled Pulmonary: Effort: Pulmonary effort is normal. Breath sounds: Normal breath sounds. No wheezing, rhonchi or rales. Abdominal: General: Abdomen is flat. Bowel sounds are normal. Palpations: Abdomen is soft. Tenderness: There is no abdominal tenderness. There is no guarding or rebound. Musculoskeletal: General: Normal range of motion. Cervical back: Normal range of motion and neck supple. Right lower leg: No edema. Left lower leg: No edema. Skin: General: Skin is warm. Neurological: General: No focal deficit present. Mental Status: He is alert and oriented to person, place, and time. Psychiatric: Mood and Affect: Mood normal. Behavior: Behavior normal. Thought Content: Thought content normal. Judgment: Judgment normal. I have reviewed most recent labs BMP results Recent Labs Units 10/22/23 1138 04/04/23 0941 08/23/22 1327 SODIUM - [facility] mmol/L 141 140 141 POTASSIUM - [facility] mmol/L 4.7 4.7 4.6 CHLORIDE - [facility] mmol/L 106 106 105 CO2 - [facility] mmol/L 24 22 26 CREATININE - [facility] mg/dL 0.8 0.9 0.9 BUN - [facility] mg/dL 15 16 17 Lipid panel results Recent Labs Units 10/22/23 1138 04/04/23 0941 08/23/22 1327 CHOLESTEROL - [facility] mg/dL 138 137 166 LDL CHOLESTEROL (CALCULATED) - [facility] mg/dL 84 83 105 HDL CHOLESTEROL - [facility] mg/dL 38* 38* 40 TRIGLYCERIDES - [facility] mg/dL 78 79 105 CBC results Recent Labs Units 04/04/23 0941 08/23/22 1327 02/13/22 1044 WBC AUTO - [facility] K/uL 6.11 5.80 5.71 HGB - [facility] g/dL 15.7 15.9 15.7 HCT - [facility] % 48.0 48.6* 47.1 PLATELET AUTO - [facility] K/uL 188 198 205 HbA1c results Recent Labs Units 10/22/23 1138 04/04/23 0941 08/23/22 1327 HEMOGLOBIN A1C - [facility] % 7.1* 6.5* 7.6* TSH results Recent Labs Units 04/04/23 0941 TSH - [facility] uIU/mL 2.93 Vitamin D results No results for input(s): "25OHVITAMIND" in the last 68672 hours. Hepatic panel results Recent Labs Units 04/04/23 0941 08/23/22 1327 02/13/22 1044 PROTEIN - [facility] g/dL 7.0 6.7 6.8 BILIRUBIN, TOTAL - [facility] mg/dL 0.5 0.5 0.4 ALKALINE PHOSPHATASE - [facility] U/L 84 88 81 AST - [facility] U/L 27 24 31 ALT - [facility] U/L 35 32 37 Protein/cr ratio results No results for input(s): "PROCRRATIO" in the last 74646 hours. Assessment and Plan New onset atrial fibrillation (HCC) EKG today shows new onset atrial fibrillation with rate of 83. Patient is completely asymptomatic from an AFib standpoint. He denies any palpitations, lightheadedness, fatigue, chest pain, shortness of breath, edema. He also denies any signs or symptoms of CVA/TIA. He was educated about the pathophysiology of atrial fibrillation as well as the potential complications. 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 Will update lab work today and also place a ZIO patch. I will also reach out to his primary instructional systems designer for further recommendations, and schedule a sooner office v isit with them for the next week or so. Patient voiced understanding of all this. Consider sleep apnea testing in the future. He does report mild snoring and mild daytime somnolence. - CBC WITH WBC DIFFERENTIAL; Future - TSH WITH FREE T4 IF INDICATED; Future - HEPATIC FUNCTION PANEL; Future - EXTERNAL EKG 2 TO 7 DAYS; Future Cardiac arrhythmia, unspecified cardiac arrhythmia type - EKG; Future Type 2 diabetes mellitus with hemoglobin A1c goal of less than 7.0% ([facility]) Labs overall stable. - Dulaglutide 1.5 MG/0.5ML Subcutaneous Solution Pen-injector ([facility] Inject 1.5 mg under the skin once a week. - BASIC METABOLIC PANEL; Future - HEMOGLOBIN A1C; Future - LIPID PANEL WITH DIRECT LDL IF TG IS HIGH; Future - CBC WITH WBC DIFFERENTIAL; Future - TSH WITH FREE T4 IF INDICATED; Future - HEPATIC FUNCTION PANEL; Future Benign essential HTN Blood pressure very well-controlled. - CBC WITH WBC DIFFERENTIAL; Future - TSH WITH FREE T4 IF INDICATED; Future - HEPATIC FUNCTION PANEL; Future Dyslipidemia, goal LDL below 70 Continue Crestor for time being. Repeat LDL in the future. - BASIC METABOLIC PANEL; Future - HEMOGLOBIN A1C; Future - LIPID PANEL WITH DIRECT LDL IF TG IS HIGH; Future Ascending aorta enlargement (HCC) Reviewed last echo from 01/2023. Follows with cardiology. 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 Hx of squamous cell carcinoma of skin Follows with dermatology. Obesity, Class I, BMI 30.0-34.9 (see actual BMI) Need for prophylactic vaccination with tetanus-diphtheria (Td) - TDAP (AGE 10 AND OLDER)(BOOSTRIX) Wrap-Up Follow Up: Return in about 6 months (around 04/28/2024), or if symptoms worsen or fail to improve, for Return with AP. | For: Return with AP Time: I spent a total of 30-39 minutes (exact time 32 mins) on the date of service in preparation, delivery, and documentation of the care provided to Buster Beaulieu excluding any time spent in the performance of separately billed services. documented in this encounter Miscellaneous Notes * Pt Handout (on AVS) - Hayes Pierre PA-C - 10/28/2023 9:58 AM EST [id number] Controlling Your Cholesterol Cholesterol is a waxy substance. Your body needs it to stay healthy. But too much can cause problems. It travels in your blood through the blood vessels. If you have a lot of cholesterol in your blood, it can build up along the sharpe of the blood vessels. This makes the vessels narrower. It decreases blood flow. You are then at greater risk of a heart attack or a stroke. Good and bad cholesterol Cholesterol is a type of lipid. Lipids are fats. Blood is mostly water. Fat and water don't mix. Solipids are carried in the blood inside a protein shell. These are called lipoproteins. There are 2 main kinds of lipoproteins: LDL (low-density lipoprotein). This is known as "bad cholesterol." It mainly carries cholesterolto body cells. Excess LDL will build up on artery sharpe. This raises your risk for heart disease and stroke. HDL (high-density lipoprotein). This is known as "good cholesterol." This protein shell collectsexcess cholesterol that LDL has left behind on blood vessel sharpe. That's why high levels of HDL can lower your risk of heart disease and stroke. Controlling cholesterol levels Total cholesterol includes LDL and HDL cholesterol, as well as other fats in the bloodstream. If your total cholesterol is high, follow the steps below to help lower your total cholesterol level: Eat less unhealthy fat Cut back on saturated fats and trans fats. A diet that?s high in these fats raises your bad cholesterol. It's not enough to just cut back on foods that have cholesterol. Trans fats are also calledpartially hydrogenated oil. Choose lean cuts of meat and low-fat dairy. Use oils instead of solid fats. Limit baked goods, processed meats, and fried foods. Eat about 2 servings of fish each week. A serving size is about 3.5 ounces. Good choices includesalmon, fernandez, tuna, sardines, or mackerel. The fish should not be fried. Most fish contain omega-3 fatty acids. These help lower total blood cholesterol. [place]-3 fatty acids lowers triglyceride levels, another form of fat in the blood. If you are , planning to be , or are , talk with your healthcare provider for advice. Ask about the best fish choices and how much is safe to eat. Eat more whole grains. Eat soluble fiber such as oat bran. These lower overall cholesterol. Be active If you haven't been exercising regularly, start slowly. Check with your healthcare provider to make sure the exercise plan is right for you. Choose a physical activity you enjoy. Walk, swim, or ride a bike. These are all good ways to be active. Start at a level where you feel comfortable. Increase your time and pace a little each week. Work up to 30 to 40 minutes of moderate to high intensity physical activity at least 3 to 4 daysper week. Remember, some activity is better than none. Quit smoking Quitting smoking can improve your lipid levels. It also lowers your risk for heart disease and stroke. Manage your weight If you are overweight, your healthcare provider will help you to lose weight. They will help you lower your BMI (body mass index) to a normal or near-normal level. Making diet changes and increasing physical activity can help. Take medicine as directed Many people need medicine to help their cholesterol levels. Medicine to treat high cholesterol is effective and safe. But keep in mind that medicine does not take the place of exercise and eating healthy foods. All of these things work together. Your healthcare provider can tell you if you may needa medicine to help lower your cholesterol. Last Reviewed Date: 04/17/202119999642-0802 [employer]. All rights reserved. This information is not intended as a substitute for professional medical care. Always follow your healthcare professional's instructions. documented in this encounter Plan of Treatment Upcoming Encounters Date Type Department Care Team (Late st Contact Info) Description 11/04/2023 8:00 AM EST Office Visit Pharmacy [place] [address] [place] [address] [facility] [address] [place] [id number] 11/19/2023 10:00 AM EST Office Visit Cardiology, [facility] [address] [place] [address] [address], [address] [place] [address] 01/20/2024 10:30 AM EST Cardiac Studies Cardiac Studies [place] [address] [place] [address] 03/08/2024 11:30 AM EDT Office Visit Cardiology, [facility] [address] [place] [address] Syl[address]rell, [address] [place] [id number] 04/29/2024 12:00 PM EDT Office Visit Family Practice [address] [place] [address] Hayes Pierre PA-C [address] [place] [id number] Scheduled Orders Name Type Priority Associated Diagnoses Orde r Schedule BASIC METABOLIC PANEL Lab Routine Type 2 diabetes mellitus with hemoglobin A1c goal of less than 7.0% (HCC) Dyslipidemia, goal LDL below 70 Expected: 01/27/2024 (Approximate), Expires: 10/27/2024 HEMOGLOBIN A1C Lab Routine Type 2 diabetes mellitus with hemoglobin A1c goal of less than 7.0% (HCC) Dyslipidemia, goal LDL below 70 Expected: 01/27/2024 (Approximate), Expires: 10/27/2024 LIPID PANEL WITH DIRECT LDL IF TG IS HIGH Lab Routine Type 2 diabetes mellitus with hemoglobin A1c goal of less than 7.0% (HCC) Dyslipidemia, goal LDL below 70 Expected: 01/27/2024, Expires: 10/28/2024 CBC WITH WBC DIFFERENTIAL Lab Routine Type 2 diabetes mellitus with hemoglobin A1c goal of less than 7.0% (HCC) Benign essential HTN New onset atrial fibrillation (HCC) Expected: 10/28/2023 (Approximate), Expires: 10/28/2024 TSH WITH FREE T4 IF INDICATED Lab Routine Type 2 diabetes mellitus with hemoglobin A1c goal of less than 7.0% (HCC) Benign essential HTN New onset atrial fibrillation (HCC) Expected: 10/28/2023 (Approximate), Expires: 10/27/2024 HEPATIC FUNCTION PANEL Lab Routine Type 2 diabetes mellitus with hemoglobin A1c goal of less than 7.0% (HCC) Benign essential HTN New onset atrial fibrillation (HCC) Expected: 10/28/2023 (Approximate), Expires: 10/27/2024 EXTERNAL EKG 2 TO 7 DAYS Holter Routine New onset atrial fibrillation (HCC) Expected: 10/29/2023 (Approximate), Expires: 10/28/2024 Health Maintenance Due Date Last Done Comments [...] this encounter Medical Devices Implanted Type Area Tax Preparer Device Identifier Shelf Expiration Date Model / Serial / Lot Biocomposite Swivelock Suture [place] Implanted:Qty: 2 on 11/18/2018 by Panchito Wright, at OR [facility] Left: Shoulder 12/17/2019 [id number] / / [id number] documented as of this encounter Results * EKG (10/28/2023 10:14 AM EST) 10/28/2023 10:1 4 AM EST Narrative Procedure Note Kirk Escobar DO - 10/28/2023 10:14 AM EST REASON FOR STUDY: new arrhythmia CONCLUSIONS: Atrial fibrillation Abnormal ECG When compared with ECG of 16-JAN-2022 09:29, Atrial fibrillation has replaced Sinus rhythm Ventricular Rate: 83 Atrial Rate: 178 QRS Duration: 80 QT/QTc: 382/448 ms P-R-T Butler: 0 : 7 : 18 degrees Hayes Pierre PA-C EKG [facility] documented in this encounter Visit Diagnoses Diagnosis New onset atrial fibrillation (HCC)- Primary Atrial fibrillation Cardiac arrhythmia, unspecified cardiac arrhythmia type Type 2 diabetes mellitus with hemoglobin A1c goal of less than 7.0% (HCC) Benign essential HTN Essential hypertension, benign Dyslipidemia, goal LDL below 70 Other and unspecified hyperlipidemia Ascending aorta enlargement (HCC) Other specified disorders of arteries and arterioles 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
--- OUTSIDE RECORDS SUMMARY | 2023-12-19 15:38 | External Medical Summary | Summary of Care ---
Author Name Unknown Organization [facility] Address [address] [place] [address] Phone [phone] Care Team Providers Care Anthropologist Name Role Phone Angelique Hook DO Primary Care Provider Un available Reason for Visit * Reason Onset Date Comments Abnormal Test Results 11/04/2023 Encounter Details Date Type Department Care Team (Late st Contact Info) Description 11/04/2023 Telephone [facility] [place] [address] [place] [address] Crystal Oconnell DO [address] [facility] [place] [address] Abnormal Test Results Allergies Active Allergy Reactions Criticality Noted Date [...] Strip 3 08/29/2022 Active OneTouch Delica Plus [id number]: Type 2 diabetes mellitus with hemoglobin A1c [...] 2000 10/21/2010 2 PULMONARY EMBOLUS S/P CHEMO 199910/21/2010 08/12/2012 Screening for prostate cancer 10/21/2010 01/29/2011 documented as of this encounter (statuses as of 11/04/2023) Immunizations Name Administration Dates Next Due COVID-19 mRNA, LNP-s, No Pre serve, 2-Dose Series (Sharypic) 07/05/2022,09/24/2021,02/03/2021,12/19 Hepatitis B, 20+ yrs 02/09/2015,10/07/2014,06/06 Pneumococcal Conjugate Vacci ne, 20-valent ([id number]) 04/10/2023 Pneumococcal Polysaccharide PPV23 (Pneumovax) 06/06/2014 Seasonal [...] money to buy more. Never true 04/10/20 Within the past 12 months, t he [...] encounter Miscellaneous Notes * Telephone Encounter - Crystal Oconnell DO [...] 11/04/2023 8:00 AM EST Office Visit Pharmacy [address] [place] [address] [facility] [address] [place] [address] 11/19/2023 10:00 AM EST Office Visit Cardiology, [facility] [address] [facility] [place] [address] Sylvester Farrell, DO [address] [place] [address] 01/20/2024 10:30 AM EST Cardiac Studies Cardiac Studies [place] [address] [place] [address] 03/08/2024 11:30 AM EDT Office Visit Cardiology, [facility] [address] [place] [address] Sylvester Farrell, DO [address] [place] [address] 04/29/2024 12:00 PM EDT Office Visit Family Practice [place], [place] [address] [place] [address] Hayes Pierre PA-C [address] [place] [address] Health Maintenance Due Date Last Done Comments [...] this encounter Medical Devices Implanted Type Area Store Protection Specialist Device Identifier Shelf Expiration Date Model / Serial / Lot Biocomposite Swivelock Suture [place] Implanted:Qty: 2 on 11/18/2018 by Panchito Wright DO at OR [facility] Left: Shoulder 12/17/2019 [id number] / / [id number] documented as of this encounter Care Teams Anthropologist Relationship Specialty Start Date End Date Angelique Hook DO PCP - General Family Medicine 02/26/22 documented as of this encounter
--- OUTSIDE RECORDS SUMMARY | 2023-12-19 15:38 | External Medical Summary | Summary of Care ---
Author Name Unknown Organization [facility] Address [address] [facility] [address] Phone [phone] Care Team Providers Care Conceptor Name Role Phone Angelique Hook DO Primary Care Provider Un available Reason for Visit * Reason Comments Dosage Adjustment In Person (Anticoag Cl inic) Diabetes Management Encounter Details Date Type Department Care Team (Late st Contact Info) Description 11/04/2023 8:00 AM EST Office Visit Pharmacy [place] [address] [place] [address] [facility] [address] [place] [address] Type 2 diabetes mellitus with hemoglobin A1c goal of less than 7.0% ([facility])* Allergies Active Allergy Reactions Criticality Noted Date [...] Strip 3 08/29/2022 Active OneTouch Delica Plus [id number]: Type 2 diabetes mellitus with hemoglobin A1c [...] Active Dulaglutide 1.5 MG/0.5ML Subcutaneous Solution Pen-injector ([facility])Indication s:Type 2 diabetes mellitus with hemoglobin A1c [...] mRNA, LNP-s, No Pre serve, 2-Dose Series ([employer] 07/05/2022,09/24/2021,02/03/2021,12/19 Hepatitis B, 20+ yrs 02/09/2015,10/07/2014,06/06 Pneumococcal Conjugate Vacci ne, 20-valent ([id number]) 04/10/2023 Pneumococcal Polysaccharide PPV23 (Pneumovax) 06/06/2014 Seasonal [...] on file documented as of this encounter Progress Notes * Edward Mendoza, [facility] - 11/04/2023 7:59 AM EST Medication Therapy Disease Management Clinic - Diabetes Management Progress Note Buster Beaulieu, identified by name and date of , is a 63 year old male being seen for diabetes management/education. Patient presents for return diabetic visit. DIABETES: Current diabetic medications: Metformin 1000mg BID with meals Jardiance 25mg daily Trulicity 1.5mg once weekly Medication Injection Site: Abdomen Lifestyle: Diet: unchanged Glucose Review/SMBG: Readings obtained from patient documented BG logbook Pre am 146 133 137 145 142 116 145 133 267 125 117 130 141 138 109 131 134 155 153 170 Pre am Average 143 Hi 267 Lo 109 Range 158 Hypoglycemia: Does your blood sugar go below 70 mg/dL? No Hyperglycemia symptoms present: none Recent Labs Units 10/22/23 1138 04/04/23 0941 08/23/22 1327 HEMOGLOBIN A1C - [facility] % 7.1* 6.5* 7.6* Recent Labs Units 10/22/23 1138 04/04/23 0941 08/23/22 1327 ESTIMATED GLOMERULAR FILTRATION RATE - [facility] mL/min >90 >90 >90 CREATININE - [facility] mg/dL 0.8 0.9 0.9 HYPERTENSION: Patient on ACEi/ARB: yes BP Readings from Last 3 Encounters: 10/28/23 118/62 04/10/23 110/70 01/30/23 112/78 Blood pressure at goal: yes HYPERLIPIDEMIA: Patient is taking moderate or high intensity statin: yes HEALTH MAINTENANCE REVIEW: Health Maintenance Due Topic Date Due Influenza Vaccine (FLU shot) (1) 07/18/2023 COVID-19 Vaccine (2022- season) 2023 ASSESSMENT & PLAN: ICD-10-CM 1. Type 2 diabetes mellitus with hemoglobin A1c goal of less than 7.0% (HCC) E11.9 BG Readings - Blood sugars controlled. A1c up slightly to 7.1%, BG averaging 143 in the AM. Medications - Reviewed current regimen, patient is adherent to regimen. Patient agreeable to continue current meds (declines an increase in trulicity at this time) Diet, Exercise, Lifestyle - No significant lifestyle changes since last visit. Patient is agreeable to SMBG 1 time(s) daily. Patient aware to contact clinic if any hypoglycemia before next visit. MEDICATION CHANGES: no change Diabetic Medications: Metformin 1000mg BID with meals Jardiance 25mg daily Trulicity 1.5mg once weekly HEALTH MAINTENANCE INTERVENTIONS: Labs: Up to Date Immunizations: Up to Date Foot Exam: Up to Date Eye Exam: Up to Date Annual Wellness Visit: N/A FOLLOW UP: Return to clinic in 5 months 03/30/2024 Edward Mendoza RPh Clinical Pharmacist - Spider Assembler Medication Therapy Management Clinic 11/04/2023, 7:59 AM documented in this encounter Plan of Treatment Upcoming Encounters Date Type Department Care Team (Late st Contact Info) Description 11/19/2023 10:00 AM EST Office Visit Cardiology, [facility] [address] [place] [address] Sylvester Farrell, DO [address] [place] [address] 01/20/2024 10:30 AM EST Cardiac Studies Cardiac Studies [facility] [place] [address] 03/08/2024 11:30 AM EDT Office Visit Cardiology, [facility] [address] [place] [address] Sylvester Farrell, DO [address] [place] [address] 03/30/2024 8:00 AM EDT Office Visit Pharmacy [address] [place] [address] [place] [address] [place], [facility] [address] [place] [address] [place] [address] 04/29/2024 12:00 PM EDT Office Visit Family Practice [address] [place] [address] [place] [address] Hayes Pierre PA-C [address] [place] [address] Health Maintenance Due Date Last Done Comments [...] this encounter Medical Devices Implanted Type Area Neck Fitter Device Identifier Shelf Expiration Date Model / Serial / Lot Biocomposite Swivelock Suture [place] Implanted:Qty: 2 on 11/18/2018 by Panchito Wright DO at OR [facility] Left: Shoulder 12/17/2019 [id number] / / [id number] documented as of this encounter Visit Diagnoses Diagnosis Type 2 diabetes mellitus with hemoglobin A1c goal of less than 7.0% (HCC)- Primary documented in this encounter Care Teams Conceptor Relationship Specialty Start Date End Date Angelique Hook DO PCP - General Family Medicine 02/26/22 documented as of this encounter
--- OUTSIDE RECORDS SUMMARY | 2023-12-19 15:38 | External Medical Summary | Summary of Care ---
Author Name Unknown Organization [facility] Address [address] [facility] [address] Phone [phone] Care Team Providers Care Registered Dietician Name Role Phone Angelique Hook DO Primary Care Provider Un available Reason for Visit * Reason Onset Date Comments Appointment 10/31/2023 Encounter Details Date Type Department Care Team (Late st Contact Info) Description 10/31/2023 Telephone Cardiology, [facility] [address] [place] [address] Sylvester Farrell DO [address] [place] [address] Appointment Allergies Active Allergy Reactions Criticality Noted [...] Strip 3 08/29/2022 Active OneTouch Delica Plus [id number]: Type 2 diabetes mellitus with hemoglobin A1c [...] mRNA, LNP-s, No Pre serve, 2-Dose Series ([employer]) 07/05/2022,09/24/2021,02/03/2021,12/19 Hepatitis B, 20+ yrs 02/09/2015,10/07/2014,06/06 Pneumococcal Conjugate Vacci ne, 20-valent ([id number]) 04/10/2023 Pneumococcal Polysaccharide PPV23 (Pneumovax) 06/06/2014 Seasonal [...] Telephone Encounter - Kyle Canchola RN - 10/31/2023 12:05 PM EST Called and left message to return call tot he clinic. "MY G" message sent also in regards tot he messages from Dr. Farrell. documented in this encounter Plan of Treatment Upcoming Encounters Date Type Department Care Team (Late st Contact Info) Description 11/04/2023 8:00 AM EST [place] [address] [address] [place] [address] [facility] [place] [place] [address] [place] [address] 11/19/2023 10:00 AM EST Office Visit Cardiology, [facility] [address] [place] [address] Sylvester Farrell, DO [address] [place] [address] 01/20/2024 10:30 AM EST Cardiac Studies Cardiac Studies [place] [address] [place] [address] 03/08/2024 11:30 AM EDT Office Visit Cardiology, [facility] [address] [place] [address] Sylvester Farrell, DO [address] [place] [address] 04/29/2024 12:00 PM EDT Office Visit Family Practice [place] [address] [place] [address] Hayes Pierre PA-C [address] [place] [address] Health Maintenance Due Date Last Done Comments [...] this encounter Medical Devices Implanted Type Area Assistant Hvac Mechanic Device Identifier Shelf Expiration Date Model / Serial / Lot Biocomposite Swivelock Suture [place] Implanted:Qty: 2 on 11/18/2018 by Panchito Wright DO at OR [facility] Left: Shoulder 12/17/2019 [id number] / / [id number] documented as of this encounter Care Teams Registered Dietician Relationship Specialty Start Date End Date Angelique Hook DO PCP - General Family Medicine 02/26/22 documented as of this encounter
--- OUTSIDE RECORDS SUMMARY | 2023-12-19 15:38 | External Medical Summary | Summary of Care ---
Author Name Unknown Organization [facility] Address [address] [place] [address] Phone [phone] Care Team Providers Care Space Systems Operations Craftsman Name Role Phone Angelique Hook DO Primary Care Provider Un available Reason for Visit * Reason Onset Date Comments Abnormal Test Results 11/04/2023 Encounter Details Date Type Department Care Team (Late st Contact Info) Description 11/04[facility] [facility] [place] [address] Crystal Oconnell DO [address] [place] [address] Abnormal Test Results Allergies Active Allergy [...] Strip 3 08/29/2022 Active OneTouch Delica Plus [id number]: Type 2 diabetes mellitus with hemoglobin A1c [...] mRNA, LNP-s, No Pre serve, 2-Dose Series ([employer]) 07/05/2022,09/24/2021,02/03/2021,12/19 Hepatitis B, 20+ yrs 02/09/2015,10/07/2014,06/06 Pneumococcal Conjugate Vacci ne, 20-valent ([id number]) 04/10/2023 Pneumococcal Polysaccharide PPV23 (Pneumovax) 06/06/2014 Seasonal [...] 11/19/2023 10:00 AM EST Office Visit Cardiology, [facility] [address] [place] [address] Sylvester Farrell, DO [address] [place] [address] 01/20/2024 10:30 AM EST Cardiac Studies Cardiac Studies [address] [place] [address] 03/08/2024 11:30 AM EDT Office Visit Cardiology, [facility] [address] [place] [address] Sylvester Farrell, DO [address] [place] [address] 03/30/2024 8:00 AM EDT Office Visit Pharmacy [place] [address] [place] [address] [place] [address] [facility] [address] [place] [address] 04/29/2024 12:00 PM EDT Office Visit Family Practice [place] [place] [address] [place] [address] Hayes Pierre PA-C [address] [place] [address] Health Maintenance Due Date Last Done Comments [...] this encounter Medical Devices Implanted Type Area Clothing Room Supervisor Device Identifier Shelf Expiration Date Model / Serial / Lot Biocomposite Swivelock Suture [place] Implanted:Qty: 2 on 11/18/2018 by Panchito Wright DO at OR [facility] Left: Shoulder 12/17/2019 [id number] / / [id number] documented as of this encounter Care Teams Space Systems Operations Craftsman Relationship Specialty Start Date End Date Angelique Hook DO PCP - General Family Medicine 02/26/22 documented as of this encounter
--- OUTSIDE RECORDS SUMMARY | 2023-12-19 15:38 | External Medical Summary | Summary of Care ---
Author Name Unknown Organization [facility] Address [address] [place] [address] Phone [phone] Care Team Providers Care Artist Model Name Role Phone Angelique Hook DO Primary Care Provider Un available Reason for Referral * Evaluate & Treat - Unlimited Visits (Within 10 days (routine)) - Pending Review Specialty Diagnoses / Procedures Referred By Destiney alexander Referred To Contact Pharmacist / Pharmacy Diagnoses Type 2 diabetes mellitus with hemoglobin A1c goal of less than 7.0% ([facility]) Edward Mendoza, [facility] [address] [place] [address] Referral ID Status Reason Start Date Expiration Date Visits Requested Visits Authorized [id number] Pending Review Specialty Services Required 3 [phone] Question Answer Referral Priority Within 10 days (routine) Where should this appointment be scheduled? [facility] Referring Provider Role: Primary Care Reason for Referral: DM Target A1c: < 7 Comments Pharmacist Medication Therapy Management: Minimum frequency patient should be seen in person for medication management: as appropriate per clinical condition and patient status By my signature, I understand that my patient Buster Beaulieu will have his medication therapy managed by the [facility] Medication Therapy Disease Management Clinic ([facility]) per established policies, procedures, and protocols. I also certify that this referral may serve as an initiation of service for the management of drug therapy in the above noted patient. [facility] providers will be responsible for scheduling patient visits, obtaining appropriate laboratory studies, and adjusting medication management therapy per patient's need, in addition to those roles spelled out in the clinic policy, procedures, and drug management protocols. I understand that the service provided by the [facility] Clinic is voluntary and have informed patient that they can refuse the service at their discretion. I am aware that the [facility] Clinic will provide me with a copy of the patient encounter via my [employer]. I authorize the [facility] to carry out these activities on my behalf. I consider this program to be a necessary part of the patient's medical care. Hayes Pierre PA-C Encounter Details Date Type Department Care Team (Late st Contact Info) Description 11/04/2023 Telephone Pharmacy [place] [address] [place] [address] Edward Mendoza, [facility] [address] [place] [address] Allergies Active Allergy Reactions Criticality Noted Date [...] hemoglobin A1c goal of less than 7.0% ([facility]) Test blood sugar up to three times daily as directed 300 Strip 3 08/29/2022 Active OneTouch Delica Plus [id number]: Type 2 diabetes mellitus with hemoglobin A1c goal of less than 7.0% ([facility]) Use to test blood glucose directed 3 [...] below 130) 10/21/2010 04/06/2014 DVT S/P CHEMO 199910/21/2010 2 PULMONARY EMBOLUS S/P CHEMO 199910/21/2010 08/12/2012 Screening for prostate cancer 10/21/2010 01/29/2011 documented as of this encounter (statuses as of 11/04/2023) Immunizations Name Administration Dates Next Due COVID-19 mRNA, LNP-s, No Pre serve, 2-Dose Series ([place]) 07/05/2022,09/24/2021,02/03/2021,12/19 Hepatitis B, 20+ yrs 02/09/2015,10/07/2014,06/06 Pneumococcal Conjugate Vacci ne, 20-valent (Uixroqc80) 04/10/2023 Pneumococcal Polysaccharide PPV23 (Pneumovax) 06/06/2014 Seasonal [...] Encounter - Crystal Oconnell DO - 11/04/2023 8:23 AM EST signed * Telephone Encounter - Edward Mendoza RPh - 11/04/2023 8:14 AM EST Updated [facility] Diabetes referral pended for pcp approval. Edward Mendoza, PharmD, [facility] Clinical Pharmacist 11/04/2023, 8:15 AM documented in this encounter Plan of Treatment Upcoming Encounters Date Type Department Care Team (Late st Contact Info) Description 11/19/2023 10:00 AM EST Office Visit [place] [facility] [address] [place] [address] Sylvester Farrell DO [address] [place] [address] 01/20/2024 10:30 AM EST Cardiac Studies Cardiac Studies [place] [address] [place] [address] 03/08/2024 11:30 AM EDT Office Visit Cardiology [facility] [address] [place] [address] Sylvester Farrell, [address] [place] [address] 03/30/2024 8:00 AM EDT [facility] [place] [facility] [address] [place] [address] [facility] [address] [place] [address] 04/29/2024 12:00 PM EDT Office Visit [facility] [place] [facility] [address] [place] [address] Hayes Pierre PA-C [address] [place] [address] Scheduled Referrals Name Type Priority Associated Diagnoses Orde r Schedule PHARMACIST MEDS THERAPY MGMT REFERRAL OP Referral Within 10 days (routine) Type 2 diabetes mellitus with hemoglobin A1c goal of less than 7.0% (HCC) Ordered: 11/04/2023 Health Maintenance Due Date Last Done Comments [...] this encounter Medical Devices Implanted Type Area [place] Machine Operator Device Identifier Shelf Expiration Date Model / Serial / Lot Biocomposite Swivelock Suture [place] Implanted:Qty: 2 on 11/18/2018 by Panchito Wright DO at OR [facility] Left: Shoulder 12/17/2019 [id number] / / [id number] documented as of this encounter Visit Diagnoses Diagnosis Type 2 diabetes mellitus with hemoglobin A1c goal of less than 7.0% (HCC)- Primary documented in this encounter Care Teams Artist Model Relationship Specialty Start Date End Date Angelique Hook DO PCP - General Family Medicine 02/26/22 documented as of this encounter
--- OUTSIDE RECORDS SUMMARY | 2023-12-19 15:38 | External Medical Summary | Summary of Care ---
Author Name Unknown Organization [facility] Address [address] [place] [address] Phone [phone] Care Team Providers Care Product Inspection Coordinator Name Role Phone Angelique Hook DO Primary Care Provider Un available Reason for Visit * Reason Onset Date Comments Appointment 10/28/2023 1-2 wk f/u w/Dr. Farrell Encounter Details Date Type Department Care Team (Late st Contact Info) Description 10/28/2023 [facility] [facility] [place] [phone] Angelique Hook DO Appointment (1-2 wk f/u w/Dr. Farrell) Allergies Active Allergy Reactions Criticality Noted Date [...] Strip 3 08/29/2022 Active OneTouch Delica Plus [id number]: Type 2 diabetes mellitus with hemoglobin A1c [...] mRNA, LNP-s, No Pre serve, 2-Dose Series ([employer]) 07/05/2022,09/24/2021,02/03/2021,12/19 Hepatitis B, 20+ yrs 02/09/2015,10/07/2014,06/06 Pneumococcal Conjugate Vacci ne, 20-valent ([id number]) 04/10/2023 Pneumococcal Polysaccharide PPV23 (Pneumovax) 06/06/2014 Seasonal [...] Telephone Encounter - Hayes Pierre PA-C - 10/28/2023 8:38 PM EST This is certainly fine. Thanks for the update. * Telephone Encounter - Kiera Laird OSA - 10/28/2023 10:59 AM EST Oni Soto has no available appts in next few weeks. Would pt be ok seeing seeing AP? * Telephone Encounter - Saundra Cantu OSA - 10/28/2023 10:[address] Farrell does not have any availability in the requested timeframe. He will be enterprise application architect at the hospital next week and will be the image provider the week after with some days of pto. Can Pt see anAP? May have to schedule into November if no availability. * Telephone Encounter - Kiera Laird OSA - 10/28/2023 10:40 AM EST Pt seen in office today by Hayes Pierre PA-C. Hayes is asking for pt to see Dr. Farrell in 1-2 weeks. Pt has seen him in past. Please call pt with sooner appointment. documented in this encounter Plan of Treatment Upcoming Encounters Date Type Department Care Team (Late st Contact Info) Description 11/04/2023 8:00 AM EST Office Visit [facility] [place] [facility] [address] [place] [address] [facility] [address] [place] [address] 11/19/2023 10:00 AM EST Office Visit Cardiology, [facility] [address] [place] [address] Sylvester Farrell, [address] [place] [address] 01/20/2024 10:30 AM EST Cardiac Studies Cardiac Studies [place] [address] [place] [address] 03/08/2024 11:30 AM EDT Office Visit Cardiology, [facility] [address] [place] [address] Sylvester Farrell, [address] [place] [address] 04/29/2024 12:00 PM EDT Office Visit Family Practice [place] [address] [place] [address] Hayes Pierre PA-C [address] [place] [address] Health Maintenance Due Date Last Done Comments [...] this encounter Medical Devices Implanted Type Area Car Detailer Device Identifier Shelf Expiration Date Model / Serial / Lot Biocomposite Swivelock Suture [employer] Implanted:Qty: 2 on 11/18/2018 by Panchito Wright DO at OR [facility] Left: Shoulder 12/17/2019 [id number] / / [id number] documented as of this encounter Care Teams Product Inspection Coordinator Relationship Specialty Start Date End Date Angelique Hook DO PCP - General Family Medicine 02/26/22 documented as of this encounter
--- OUTSIDE RECORDS SUMMARY | 2023-12-19 15:38 | External Medical Summary | Summary of Care ---
Author Name Unknown Organization [facility] Address [address] [place] [address] Phone [phone] Care Team Providers Care Toy Parts Former Supervisor Name Role Phone Angelique Hook DO Primary Care Provider Un available Reason for Referral * Evaluate & Treat - Unlimited Visits (Within 10 days (routine)) - Pending Review Specialty Diagnoses / Procedures Referred By Destiney alexander Referred To Contact Pharmacist / Pharmacy Diagnoses Type 2 diabetes mellitus with hemoglobin A1c goal of less than 7.0% ([facility]) Edward Mendoza, [facility] [address] [place] [address] Referral ID Status Reason Start Date Expiration Date Visits Requested Visits Authorized [id number] Pending Review Specialty Services Required 3 99 99 Question Answer Referral Priority Within 10 days (routine) Where should this appointment be scheduled? [facility] Referring Provider Role: Primary Care Reason for Referral: DM Target A1c: < 7 Comments Pharmacist Medication Therapy Management: Minimum frequency patient should be seen in person for medication management: as appropriate per clinical condition and patient status By my signature, I understand that my patient Buster Beaulieu will have his medication therapy managed by the [facility] Medication Therapy Disease Management Clinic ([facility]) per established policies, procedures, and protocols. I also certify that this referral may serve as an initiation of service for the management of drug therapy in the above noted patient. [facility] providers will be responsible for scheduling patient visits, obtaining appropriate laboratory studies, and adjusting medication management therapy per patient's need, in addition to those roles spelled out in the clinic policy, procedures, and drug management protocols. I understand that the service provided by the [facility] Clinic is voluntary and have informed patient that they can refuse the service at their discretion. I am aware that the [facility] Clinic will provide me with a copy of the patient encounter via my [employer]. I authorize the [facility] Clinic to carry out these activities on my behalf. I consider this program to be a necessary part of the patient's medical care. Hayes Pierre PA-C Encounter Details Date Type Department Care Team (Late st Contact Info) Description 11/04/[address] [place] [facility] [address] [place] [address] Edward Mendoza, [facility] [address] [place] [address] Allergies Active Allergy Reactions Criticality Noted Date [...] hemoglobin A1c goal of less than 7.0% ([facility]) Test blood sugar up to three times daily as directed 300 Strip 3 08/29/2022 Active OneTouch Delica Plus [id number]: Type 2 diabetes mellitus with hemoglobin A1c goal of less than 7.0% ([facility]) Use to test blood glucose directed 3 [...] mRNA, LNP-s, No Pre serve, 2-Dose Series (Ocelus) 07/05/2022,09/24/2021,02/03/2021,12/19 Hepatitis B, 20+ yrs 02/09/2015,10/07/2014,06/06 Pneumococcal Conjugate Vacci ne, 20-valent ([id number]) 04/10/2023 Pneumococcal Polysaccharide PPV23 (Pneumovax) 06/06/2014 Seasonal [...] RPh - 11/04/2023 8:14 AM EST Updated [facility] Diabetes referral pended for pcp approval. Edward Mendoza, PharmD, [facility] Clinical Pharmacist 11/04/2023, 8:15 AM documented in this encounter Plan of Treatment Upcoming Encounters Date Type Department Care Team (Late st Contact Info) Description 11/19/2023 10:00 AM EST Office Visit [facility] [address] [place] [address] Sylvester Farrell DO [address] [place] [address] 01/20/2024 10:30 AM EST Cardiac Studies Cardiac Studies [facility] [facility] [address] [place] [address] 03/08/2024 11:30 AM EDT Office Visit Cardiology [facility] [address] [place] [address] Sylvester Farrell, [address] [place] [address] 03/30/2024 8:00 AM EDT [facility] [address] [place] [address] [place] [facility] [address] [place] [address] 04/29/2024 12:00 PM EDT Office Visit Family Practice [facility] [address] [place] [address] Hayes Pierre PA-C [address] [place] [address] Scheduled Referrals Name Type Priority Associated Diagnoses [...] this encounter Medical Devices Implanted Type Area Pharmacy Technology Instructor Device Identifier Shelf Expiration Date Model / Serial / Lot Biocomposite Swivelock Suture [place] Implanted:Qty: 2 on 11/18/2018 by Panchito Wright DO at OR [facility] Left: Shoulder 12/17/2019 [id number] / / [id number] documented as of this encounter Visit Diagnoses Diagnosis Type 2 diabetes mellitus with hemoglobin A1c goal of less than 7.0% (HCC)- Primary documented in this encounter Care Teams Toy Parts Former Supervisor Relationship Specialty Start Date End Date Angelique Hook DO PCP - General Family Medicine 02/26/22 documented as of this encounter
--- OUTSIDE RECORDS SUMMARY | 2023-12-19 15:38 | External Medical Summary | Summary of Care ---
Author Name Unknown Organization [facility] Address [address] [place] [address] Phone [phone] Care Team Providers Care Vending Machine Refiller Name Role Phone Angelique Hook DO Primary Care Provider Un available Reason for Visit * Reason Onset Date Comments Appointment 10/28/2023 1-2 wk f/u w/Dr. Farrell Encounter Details Date Type Department Care Team (Late st Contact Info) Description 10/28[facility] [address] [facility] [place] [phone] Angelique Hook DO Appointment (1-2 wk f/u w/Dr. Farrell) Allergies Active Allergy Reactions Criticality Noted Date Comments Lisinopril Cough Medium 08/04/2014 Penicillins 11/30/2010 documented as of this encounter (statuses as of 10/29/2023) Medications Medication Sig Dispensed Refills Start Date [...] Strip 3 08/29/2022 Active OneTouch Delica Plus [id number]: Type 2 diabetes mellitus with hemoglobin A1c [...] as of this encounter (statuses as of 10/29/2023) Active Problems Problem Noted Date Diagnosed Date [...] as of this encounter (statuses as of 10/29/2023) Resolved Problems Problem Noted Date Diagnosed Date [...] as of this encounter (statuses as of 10/29/2023) Immunizations Name Administration Dates Next Due COVID-19 mRNA, LNP-s, No Pre serve, 2-Dose Series (Satispay) 07/05/2022,09/24/2021,02/03/2021,12/19 Hepatitis B, 20+ yrs 02/09/2015,10/07/2014,06/06 Pneumococcal Conjugate Vacci ne, 20-valent ([id number]) 04/10/2023 Pneumococcal Polysaccharide PPV23 (Pneumovax) 06/06/2014 Seasonal [...] in the requested timeframe. 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 [...] 11/04/2023 8:00 AM EST Office Visit [place]acy [place] [facility] [address] [place] [address] [facility] [address] [place] [address] 11/19/2023 10:00 AM EST Office Visit Cardiology, [facility] [address] [place] [address] Sylvester Farrell, [address] [place] [address] 01/20/2024 10:30 AM EST Cardiac Studies Cardiac Studies [place] [facility] [place] [address] [place] [address] 03/08/2024 11:30 AM EDT Office Visit Cardiology, [facility] [address] [place] [address] Sylvester Farrell, [address] [place] [address] 04/29/2024 12:00 PM EDT Office Visit Family Practice [place] [facility] [place] [address] [place] [address] Hayes Pierre PA-C [address] [place] [address] [place] [address] Health Maintenance Due Date Last Done Comments [...] this encounter Medical Devices Implanted Type Area Wrapper Sizer Device Identifier Shelf Expiration Date Model / Serial / Lot Biocomposite Swivelock Suture [place] Implanted:Qty: 2 on 11/18/2018 by Panchito Wright DO at OR [facility] Left: Shoulder 12/17/2019 [id number] / / [id number] documented as of this encounter Care Teams Vending Machine Refiller Relationship Specialty Start Date End Date Angelique Hook DO PCP - General Family Medicine 02/26/22 documented as of this encounter
--- OUTSIDE RECORDS SUMMARY | 2023-12-19 15:38 | External Medical Summary | Summary of Care ---
Author Name Unknown Organization [facility] Address [address] [place] [address] Phone [phone] Care Team Providers Care Video Game Creator Name Role Phone Hook, Angelique Barryvarghese Primary Care Provider [phone] Reason for Visit * Reason Onset Date Comments Abnormal Test Results 11/04/2023 Encounter Details Date Type Department Care Team (Late st Contact Info) Description 11/04/2023 Telephone Family Practice [facility] [place] [address] [place] [address] Crystal Oconnell DO [address] [place] [address] Abnormal Test Results Allergies Active Allergy [...] Strip 3 08/29/2022 Active OneTouch Delica Plus [id number]: Type 2 diabetes mellitus with hemoglobin A1c [...] mRNA, LNP-s, No Pre serve, 2-Dose Series (ISIS sentronics) 07/05/2022,09/24/2021,02/03/2021,12/19 Hepatitis B, 20+ yrs 02/09/2015,10/07/2014,06/06 Pneumococcal Conjugate Vacci ne, 20-valent (Gywdkov85) 04/10/2023 Pneumococcal Polysaccharide PPV23 (Pneumovax) 06/06/2014 Seasonal [...] Visit Cardiology, [facility] [address] [place] [address] Sylvester Farrell DO [address] [place] [address] 01/20/2024 10:30 AM EST Cardiac Studies [facility]iac [place] [address] [place] [address] 03/08/2024 11:30 AM EDT Office Visit Cardiology, [facility] [address] [place] [address] Sylvester Farrell DO [address] [place] [address] 03/30/2024 8:00 AM EDT Office Visit Pharmacy [address], [place] [address] [place] [address] [place] [facility] [address] [place] [address] 04/29/2024 12:00 PM EDT Office Visit Family Practice [place] [place] [address] [place] [address] Hayes Pierre PA-C [address] [place] [address] Health Maintenance Due Date Last Done Comments [...] this encounter Medical Devices Implanted Type Area Boring Machine Operator Device Identifier Shelf Expiration Date Model / Serial / Lot Biocomposite Swivelock Suture [place] Implanted:Qty: 2 on 11/18/2018 by Panchito Wright DO at OR [facility] Left: Shoulder 12/17/2019 [id number] / / [id number] documented as of this encounter Care Teams Video Game Creator Relationship Specialty Start Date End Date Angelique Hook DO PCP - General Family Medicine 02/26/22 documented as of this encounter
--- OUTSIDE RECORDS SUMMARY | 2023-12-19 15:39 | External Medical Summary | Summary of Care ---
Author Name Unknown Organization [facility] Address [address] [place] [address] Phone [phone] Care Team Providers Care Cadastral Engineer Name Role Phone Angelique Hook DO Primary Care Provider Un available Reason for Visit * Reason Onset Date Comments Appointment 10/28/2023 1-2 wk f/u w/Dr. Farrell Encounter Details Date Type Department Care Team (Late st Contact Info) Description 10/28/[facility] [address] [facility] [place] [phone] Angelique Hook DO Appointment (1-2 wk f/u w/Dr. Farrell) Allergies Active Allergy Reactions Criticality Noted Date Comments Lisinopril Cough Medium 08/04/2014 Penicillins 11/30/2010 documented as of this encounter (statuses as of 10/28/2023) Medications Medication Sig Dispensed Refills Start Date [...] Strip 3 08/29/2022 Active OneTouch Delica Plus [id number]: Type 2 diabetes mellitus with hemoglobin A1c [...] as of this encounter (statuses as of 10/28/2023) Active Problems Problem Noted Date Diagnosed Date [...] as of this encounter (statuses as of 10/28/2023) Resolved Problems Problem Noted Date Diagnosed Date [...] as of this encounter (statuses as of 10/28/2023) Immunizations Name Administration Dates Next Due COVID-19 mRNA, LNP-s, No Pre serve, 2-Dose Series ([employer]) 07/05/2022,09/24/2021,02/03/2021,12/19 Hepatitis B, 20+ yrs 02/09/2015,10/07/2014,06/06 Pneumococcal Conjugate Vacci ne, 20-valent (Pnhfmrs63) 04/10/2023 Pneumococcal Polysaccharide PPV23 (Pneumovax) 06/06/2014 Seasonal [...] encounter Miscellaneous Notes * Telephone Encounter - Kiera Laird OSA - 10/28/2023 10:59 AM EST Hayes-Dr. Soto has no available appts in next few weeks. Would pt be ok seeing seeing AP? * Telephone Encounter - Saundra Cantu OSA - 10/28/2023 10:[address] Farrell does not have any availability in the requested timeframe. 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 and will [...] 11/04/2023 8:00 AM EST Office Visit Pharmacy [place] [address] [place] [address] [place], [facility] [address] [place] [place] [address] 01/20/2024 10:30 AM EST Cardiac Studies Cardiac Studies [place] [address] [place] [address] 03/08/2024 11:30 AM EDT Office Visit Cardiology, [facility] [address] [place] [address] Sylvester Farrell, [address] [place] [address] 04/29/2024 12:00 PM EDT Office Visit Family Practice [place] [address] [place] [place] [address] Hayes Pierre PA-C [address] [place] [address] Health Maintenance Due Date Last Done Comments [...] this encounter Medical Devices Implanted Type Area Scheduling Administrator Device Identifier Shelf Expiration Date Model / Serial / Lot Biocomposite Swivelock Suture [place] Implanted:Qty: 2 on 11/18/2018 by Panchito Wright, at OR [facility] Left: Shoulder 12/17/2019 [id number] / / [id number] documented as of this encounter Care Teams Cadastral Engineer Relationship Specialty Start Date End Date Angelique Hook DO PCP - General Family Medicine 02/26/22 documented as of this encounter
--- OUTSIDE RECORDS SUMMARY | 2023-12-19 15:39 | External Medical Summary | Summary of Care ---
Author Name Unknown Organization [facility] Address [address] [place] [address] Phone [phone] Care Team Providers Care Solvent Process Extractor Operator Name Role Phone Angelique Hook DO Primary Care Provider Un available Reason for Referral * Medication Prior Authorization - Closed Specialty Diagnoses / Procedures Referred By Contac t Referred To Contact Diagnoses Type 2 diabetes mellitus with hemoglobin A1c goal of less than 7.0% ([facility]) Hayes Pierre PA-C [address] [facility] [place] [address] Referral ID Status Reason Start Date Expiration Date Visits Re quested Visits Authorized [id number] Closed 999 999 Reason for Visit * Reason Onset Date Comments Medication Refill 10/22/2023 Encounter Details Date Type Department Care Team (Late st Contact Info) Description 10/22/2023 [facility] [address] [facility] [place] [address] Angelique Hook DO Type 2 diabetes mellitus with hemoglobin A1c goal of less than 7.0% ([facility])* Allergies Active Allergy Reactions Criticality Noted Date Comments Lisinopril Cough Medium 08/04/2014 Penicillins 11/30/2010 documented as of this encounter (statuses as of 10/22/2023) Medications Medication Sig Dispensed Refills Start Date [...] Tablet Take by mouth. 0 Ac tive PersoneraTouch Ultra Blue In Vitro Strip (Glucose Blood)Indications:Ty pe 2 diabetes mellitus with hemoglobin A1c goal of less than 7.0% (HCC) Test blood sugar up to three times daily as directed 300 Strip 3 08/29/2022 Active OneTouch Delica Plus [id number] :Type 2 diabetes mellitus with hemoglobin A1c [...] once a week. 6 mL 3 10/22/2023 Active Dulaglutide 1.5 MG/0.5ML Subcutaneous Solution Pen-injector (Trulicity)Indicatio ns:Type 2 diabetes mellitus with hemoglobin A1c goal of less than 7.0% ([facility]) Inject 1.5 mg under the skin once a week. 6 mL 3 10/31/2022 3 Discontinue d(Refill) documented as of this encounter (statuses as of 10/22/2023) Active Problems Problem Noted Date Diagnosed Date [...] as of this encounter (statuses as of 10/22/2023) Resolved Problems Problem Noted Date Diagnosed Date [...] as of this encounter (statuses as of 10/22/2023) Immunizations Name Administration Dates Next Due COVID-19 mRNA, LNP-s, No Pre serve, 2-Dose Series ([employer]ok [employer]ok [employer]) 07/05/2022,09/24/2021,02/03/2021,12/19 Hepatitis B, 20+ yrs 02/09/2015,10/07/2014,06/06 Pneumococcal Conjugate Vacci ne, 20-valent (Evxhmju30) 04/10/2023 Pneumococcal Polysaccharide PPV23 (Pneumovax) 06/06/2014 SEASONAL INFLUENZA, PF, 6 M & Above, IM , (FLULAVAL or FLUZONE) 08/09/2022,08/17/2020,08/31/2019,08/17 Seasonal Influenza Virus Vac cine, Unspecified Formulation 09/11/2021 Seasonal Influenza, Split, I IV3, With Preserve, Inj 08/31/2017,09/03/2016,08/05/2015,08/17,08/31/2013,08/31/2012,09/05/20 11,08/31/2010 09/02/2015 TDAP (age 10 and older)(Boostrix) 08/03/2013 Zoster Vaccine Recombinant (Shingrix) 11/27/2020 ,09/18/2020 documented [...] Telephone Encounter - Hayes Pierre PA-C - 10/22/2023 1:48 PM EST Signed Prescriptions: Disp Refills Dulaglutide 1.5 MG/0.5ML Subcutaneous Solu*6 mL 3 Sig: Inject 1.5 mg under the skin once a week.Authorizing Provider: HAYES PIERRE * Telephone Encounter - Geno Mcdonough LPN - 10/22/2023 8:26 AM EST No prescriptions requested or ordered in this encounter Last Visit: 04/10/2023 (in office), Visit date not found (telemedicine) Next Visit: 10/28/2023 Last date the medication was ordered: 10/31/22 Patient Active Problem List Diagnosis Code Type 2 diabetes mellitus with hemoglobin A1c goal of less than 7.0% (HCC) E11.9 Obesity, Class I, BMI 30.0-34.9 (see actual BMI) E66.9 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 Dyslipidemia, goal LDL below 70 E78.5 Ascending aorta enlargement (HCC) I77.89 Dilated aortic root (HCC) I77.810 Primary osteoarthritis of first carpometacarpal joint of left hand M18.12 B12 deficiency E53.8 Dermatofibroma of right lower leg D23.71 Hx of squamous cell carcinoma of skin Z85.828 Type 2 diabetes mellitus with diabetic polyneuropathy (HCC) E11.42 Labs: Lab Results Component Value Date/Time CREATININE - [facility] 0.9 04/04/2023 09:41 AM CREATININE - [facility] 0.9 06/28/2020 12:08 PM CREATININE, RANDOM URINE - [facility] 111 04/04/2023 11:11 AM CREATININE, RANDOM URINE - [facility] 70 06/28/2020 12:08 PM CREATININE-OUTSIDE LAB 0.8 06/08/2019 12:00 AM Lab Results Component Value Date/Time POTASSIUM - [facility] 4.7 04/04/2023 09:41 AM POTASSIUM - [facility] 4.5 06/28/2020 12:08 PM POTASSIUM-OUTSIDE LAB 4.5 06/08/2019 12:00 AM Lab Results Component Value Date/Time TSH - [facility] 2.93 04/04/2023 09:41 AM Lab Results Component Value Date/Time LDL (CALCULATED)-[facility] 72 06/08/2019 12:00 AM LDL (CALCULATED)-[facility] 80 09/25/2018 12:00 AM LDL (DIRECT MEASURE)-[facility] 90 03/31/2018 12:00 AM LDL (DIRECT MEASURE)-[facility]IDE LAB 111 10/01/2017 12:00 AM LDL CHOLESTEROL (CALCULATED) - [facility] 83 04/04/2023 09:41 AM LDL CHOLESTEROL (CALCULATED) - [facility] 105 08/23/2022 01:27 PM LDL CHOLESTEROL (CALCULATED) - [facility] 85 06/28/2020 12:08 PM LDL CHOLESTEROL (CALCULATED) - [facility] 93 12/28/2019 11:19 AM LDL CHOLESTEROL (DIRECT MEASURE) - [facility] NOT APPLICABLE 06/28/2020 12:08 PM LDL CHOLESTEROL (DIRECT MEASURE) - [facility] NOT APPLICABLE 12/28/2019 11:19 AM Lab Results Component Value Date/Time ALT - [facility] 35 04/04/2023 09:41 AM ALT - [facility] 33 06/28/2020 12:08 PM ALT-OUTSIDE LAB 32 10/01/2017 12:00 AM Hemoglobin AIC Results: Lab Results Component Value Date/Time HEMOGLOBIN A1C - [facility] 6.5 (H) 04/04/2023 09:41 AM HEMOGLOBIN A1C - [facility] 7.6 (H) 08/23/2022 01:27 PM HEMOGLOBIN A1C - [facility] 7.1 (H) 02/13/2022 10:44 AM HEMOGLOBIN A1C - [facility] 7.2 (H) 06/28/2020 12:08 PM HEMOGLOBIN A1C - [facility] 6.7 (H) 04/08/2019 03:46 PM HEMOGLOBIN A1C - [facility] 8.4 (H) 02/02/2014 10:11 AM documented in this encounter Plan of Treatment Upcoming Encounters Date Type Department Care Team (Late st Contact Info) Description 10/28/2023 9:40 AM EST Office Visit Family Practice [facility] [address] [place] [address] Hayes Pierre PA-C [address] [place] [address] 11/04/2023 8:00 AM EST Office Visit Pharmacy [facility] [address] [place] [address] [facility] [address] [place] [address] 01/20/2024 10:30 AM EST Cardiac Studies Cardiac Studies [facility] [address] [place] [address] 03/08/2024 11:30 AM EDT Office Visit Cardiology, [facility] [address] [place] [address] Sylvester Farrell, [address] [place] [address] Health Maintenance Due Date Last Done Comments COVID-19 Vaccine ( season) 2023 07/05/2022, 09/24/2021, 02/03/2021, Additional history exists Influenza Vaccine (FLU shot) (#1) 2023 08/09/2022, 09/11/2021, 08/17/2020, Additional history exists DTaP,Tdap,and Td Vaccines (2 - Td or Tdap) 08/03/2023 08/03/2013 HbA1c 10/05/2023 04/04/2023, 05/2022, 02/13/2022, Additional history exists Albumin/Creatinine Ratio 04/04/2024 023, 08/23/2022, 02/13/2022, Additional history exists B-12 04/04/2024 04/04/2023, 05/2022, 02/13/2022, Additional history exists GFR 04/04/2024 04/04/2023, 05/2022, 02/13/2022, Additional history exists Depression Screening 04/10/2024 04/10/2023, 06/17/20 Diabetic Foot Exam 04/10/2024 04/10/2023, 0 08/16/2021, 07/06/2020, Additional history exists Diabetic Eye Exam 04/11/2024 04/11/2023, , 03/28/2021, Additional history exists COLONOSCOPY-EVERY 3 YRS AGES 18-100 06/12/2024 06/12/2021, 01/27/2018, 11/01/2014, Additional history exists Lipid Panel 04/04/2028 04/04/2023, 10/0 05/2022, 02/13/2022, Additional history exists Hepatitis B Completed 02/09/2015, 09/18, 06/06/2014 Zoster [...] this encounter Medical Devices Implanted Type Area [employer] Umpire Device Identifier Shelf Expiration Date Model / Serial / Lot Biocomposite Swivelock Suture [place] Implanted:Qty: 2 on 11/18/2018 by Panchito Wright DO at OR [facility] Left: Shoulder 12/17/2019 [id number] / / [id number] documented as of this encounter Visit Diagnoses Diagnosis Type 2 diabetes mellitus with hemoglobin A1c goal of less than 7.0% ([facility])- Primary documented in this encounter Care Teams Solvent Process Extractor Operator Relationship Specialty Start Date End Date Angelique Hook DO PCP - General Family Medicine 02/26/22 documented as of this encounter
--- OUTSIDE RECORDS SUMMARY | 2023-12-19 15:39 | External Medical Summary | Summary of Care ---
Author Name Unknown Organization [facility] Address [address] [place] [address] Phone [phone] Care Team Providers Care Registered Nurse Step Down Name Role Phone Angelique Hook DO Primary Care Provider Un available Reason for Visit * Reason Onset Date Comments Appointment 10/28/2023 1-2 wk f/u w/Dr. Farrell Encounter Details Date Type Department Care Team (Late st Contact Info) Description [facility] [facility] [place] [phone] Angelique Hook DO Appointment (1-2 wk f/u [...] Strip 3 08/29/2022 Active OneTouch Delica Plus [id number]: Type 2 diabetes mellitus with hemoglobin A1c [...] mRNA, LNP-s, No Pre serve, 2-Dose Series (Vayyar) 07/05/2022,09/24/2021,02/03/2021,12/19 Hepatitis B, 20+ yrs 02/09/2015,10/07/2014,06/06 Pneumococcal Conjugate Vacci ne, 20-valent ([id number]) 04/10/2023 Pneumococcal Polysaccharide PPV23 (Pneumovax) 06/06/2014 Seasonal [...] in the requested timeframe. 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 [...] 11/04/2023 8:00 AM EST Office Visit Pharmacy [place] Rubalcava [address] [place] [address] Sonia, [facility] [address] [place] [address] 01/20/2024 10:30 AM EST Cardiac Studies Cardiac Studies [place] Khadar [place] [address] [place] [address] 03/08/2024 11:30 AM EDT Office Visit Cardiology, [facility] [address] [place] [address] Sylvester Farrell, [address] [place] [address] 04/29/2024 12:00 PM EDT Office Visit Family Practice [place] Rubalcava [address] [place] [address] Hayes Pierre PA-C [address] [place] [address] Health Maintenance Due Date Last Done Comments [...] this encounter Medical Devices Implanted Type Area Poly Area Supervisor Device Identifier Shelf Expiration Date Model / Serial / Lot Biocomposite Swivelock Suture [place] Implanted:Qty: 2 on 11/18/2018 by Panchito Wright, at OR [facility] Left: Shoulder 12/17/2019 [id number] / / [id number] documented as of this encounter Care Teams Registered Nurse Step Down Relationship Specialty Start Date End Date Angelique Hook DO PCP - General Family Medicine 02/26/22 documented as of this encounter
--- OUTSIDE RECORDS SUMMARY | 2023-12-19 15:39 | External Medical Summary | Summary of Care ---
Author Name Unknown Organization [facility] Address [address] [place] [address] Phone [phone] Care Team Providers Care Dinkey Engine Firer/Fireman Name Role Phone Angelique Hook DO Primary Care Provider Un available Reason for Visit * Reason Onset Date Comments Appointment 10/28/2023 1-2 wk f/u w/Dr. Farrell Encounter Details Date Type Department Care Team (Late st Contact Info) Description [facility] [facility] [place] [phone] Angelique Hook DO Appointment (1-2 wk f/u [...] Strip 3 08/29/2022 Active OneTouch Delica Plus [id number]: Type 2 diabetes mellitus with hemoglobin A1c [...] mRNA, LNP-s, No Pre serve, 2-Dose Series ([employer]) 07/05/2022,09/24/2021,02/03/2021,12/19 Hepatitis B, 20+ yrs 02/09/2015,10/07/2014,06/06 Pneumococcal Conjugate Vacci ne, 20-valent ([id number]) 04/10/2023 Pneumococcal Polysaccharide PPV23 (Pneumovax) 06/06/2014 Seasonal [...] in the requested timeframe. 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 [...] 11/04/2023 8:00 AM EST Office Visit Pharmacy [place] [facility] [address] [place] [address] [facility] [address] [place] [address] 11/19/2023 10:00 AM EST Office Visit Cardiology, [facility] [address] [place] [address] Sylvester Farrell, [address] [place] [address] 01/20/2024 10:30 AM EST Cardiac Studies Cardiac Studies [place] Khadar [place] [address] [place] [address] 03/08/2024 11:30 AM EDT Office Visit Cardiology, [facility] [address] [place] [address] Sylvester Farrell, [address] [place] [address] 04/29/2024 12:00 PM EDT Office Visit Family Practice [place] Khadar [place] [address] [place] [address] Hayes Pierre PA-C [address] [place] [address] [place] [address] Health Maintenance Due Date Last Done Comments [...] this encounter Medical Devices Implanted Type Area Worm Grower Device Identifier Shelf Expiration Date Model / Serial / Lot Biocomposite Swivelock Suture [place] Implanted:Qty: 2 on 11/18/2018 by Panchito Wright DO at OR [facility] Left: Shoulder 12/17/2019 [id number] / / [id number] documented as of this encounter Care Teams Dinkey Engine Firer/Fireman Relationship Specialty Start Date End Date Angelique Hook DO PCP - General Family Medicine 02/26/22 documented as of this encounter
--- OUTSIDE RECORDS SUMMARY | 2023-12-19 15:39 | External Medical Summary | Summary of Care ---
Author Name Unknown Organization [facility] Address [address] [place] [address] Phone [phone] Care Team Providers Care Senior Product Analyst Name Role Phone Angelique Hook DO Primary Care Provider Un available Reason for Visit * Reason Onset Date Comments Appointment 10/28/2023 1-2 wk f/u w/Dr. Farrell Encounter Details Date Type Department Care Team (Late st Contact Info) Description 10/28/[facility] [facility] [place] [phone] Angelique Hook DO Appointment (1-2 wk f/u [...] Strip 3 08/29/2022 Active OneTouch Delica Plus [id number]: Type 2 diabetes mellitus with hemoglobin A1c [...] mRNA, LNP-s, No Pre serve, 2-Dose Series ([employer]) 07/05/2022,09/24/2021,02/03/2021,12/19 Hepatitis B, 20+ yrs 02/09/2015,10/07/2014,06/06 Pneumococcal Conjugate Vacci ne, 20-valent ([id number]) 04/10/2023 Pneumococcal Polysaccharide PPV23 (Pneumovax) 06/06/2014 Seasonal [...] in the requested timeframe. 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 [...] 11/04/2023 8:00 AM EST Office Visit Pharmacy [place] Sonia Rubalcava [address] [place] [address] Sonia, [facility] [address] [place] [address] 01/20/2024 10:30 AM EST Cardiac Studies Cardiac Studies [place] Khadar [place] [address] [place] [address] 03/08/2024 11:30 AM EDT Office Visit Cardiology, [facility] [address] [place] [address] Sylvseter Farrell, [address] [place] [address] 04/29/2024 12:00 PM EDT Office Visit Family Practice [place] Sonia Rubalcava [address] [place] [address] Hayes Pierre PA-C [address] [place] [address] Health Maintenance Due Date Last Done Comments [...] this encounter Medical Devices Implanted Type Area Consumer Experience Consultant Device Identifier Shelf Expiration Date Model / Serial / Lot Biocomposite Swivelock Suture [place] Implanted:Qty: 2 on 11/18/2018 by Panchito Wright, at OR [facility] Left: Shoulder 12/17/2019 [id number] / / [id number] documented as of this encounter Care Teams Senior Product Analyst Relationship Specialty Start Date End Date Angelique Hook DO PCP - General Family Medicine 02/26/22 documented as of this encounter
--- OUTSIDE RECORDS SUMMARY | 2023-12-19 15:39 | External Medical Summary | Summary of Care ---
Author Name Unknown Organization [facility] Address [address] [place] [address] Phone [phone] Care Team Providers Care Want Ad Clerk Name Role Phone Angelique Hook DO Primary Care Provider Un available Reason for Visit * Reason Onset Date Comments Appointment 10/28/2023 1-2 wk f/u w/Dr. Farrell Encounter Details Date Type Department Care Team (Late st Contact Info) Description 10/28[facility] [facility] [place] [phone] Angelique Hook DO Appointment (1-2 wk f/u [...] Strip 3 08/29/2022 Active OneTouch Delica Plus [id number]: Type 2 diabetes mellitus with hemoglobin A1c [...] mRNA, LNP-s, No Pre serve, 2-Dose Series ([employer]) 07/05/2022,09/24/2021,02/03/2021,12/19 Hepatitis B, 20+ yrs 02/09/2015,10/07/2014,06/06 Pneumococcal Conjugate Vacci ne, 20-valent ([id number]) 04/10/2023 Pneumococcal Polysaccharide PPV23 (Pneumovax) 06/06/2014 Seasonal [...] in the requested timeframe. 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 Sonia Rubalcava [address] [place] [place] [address] Sonia, [facility] [place] [address] [place] [address] 01/20/2024 10:30 AM EST Cardiac Studies Cardiac Studies [place] Khadar [place] [address] [place] [address] 03/08/2024 11:30 AM EDT Office Visit Cardiology, [facility] [address] [place] [address] Sylvester Farrell, [address] [place] [address] 04/29/2024 12:00 PM EDT Office Visit Family Practice [place] Sonia Rubalcava [address] [place] [address] Hayes Pierre PA-C [address] [place] [address] Health Maintenance Due Date Last Done Comments [...] this encounter Medical Devices Implanted Type Area Net Washer Device Identifier Shelf Expiration Date Model / Serial / Lot Biocomposite Swivelock Suture [place] Implanted:Qty: 2 on 11/18/2018 by Panchito Wright, at OR [facility] Left: Shoulder 12/17/2019 [id number] / / [id number] documented as of this encounter Care Teams Want Ad Clerk Relationship Specialty Start Date End Date Angelique Hook DO PCP - General Family Medicine 02/26/22 documented as of this encounter
--- OUTSIDE RECORDS SUMMARY | 2023-12-19 15:40 | External Medical Summary | Summary of Care ---
Author Name Unknown Organization [facility] Address [address] [place] [address] Phone [phone] Care Team Providers Care Loom Fixer Supervisor Name Role Phone Hook, Angelique Barryvarghese Primary Care Provider [phone] Reason for Visit * Reason Comments eRx-Medication Refill Encounter Details Date Type Department Care Team Description 07/13/2023 Refill Family Practice [place] Sonia Rubalcava [address] [place] [address] Crystal Oconnell DO [address] [facility] [place] [address] Dyslipidemia, goal LDL below 70; Ascending aorta enlargement (HCC) Allergies Active Allergy Reactions Severity Noted Date Comments Lisinopril Cough Medium 08/04/2014 Penicillins 11/30/2010 documented as of this encounter (statuses as of 07/14/2023) Medications Medication Sig Dispensed Refills Start Date [...] Strip 3 08/29/2022 Active OneTouch Delica Plus [id number] :Type 2 diabetes mellitus with hemoglobin A1c goal of less than 7.0% (HCC) Use to test blood glucose directed 3 times daily daily 300 Each 3 08/29/2022 Active Dulaglutide 1.5 MG/0.5ML Subcutaneous Solution Pen-injector (Trulicity)Indicatio ns:Type 2 diabetes mellitus with hemoglobin A1c goal of less than 7.0% (HCC) Inject 1.5 mg under the skin once a week. 6 mL 3 10/31/2022 Active metFORMIN HCl 1000 MG Oral Tablet [...] goal LDL below 70,Ascending aorta enlargement (HCC) TAKE ONE TABLET BY MOUTH EVERY MORNING. 90 Tablet 1 01/21/2023 3 Discontinue d(Refill) Rosuvastatin Calcium 40 MG Oral Tablet (Crestor)Indications :Dyslipidemia, goal LDL below 70,Ascending aorta enlargement (HCC) TAKE 1 TABLET BY MOUTH EVERY MORNING 90 Tablet 1 01/21/2023 3 Discontinue d(Refill) documented as of this encounter (statuses as of 07/14/2023) Active Problems Problem Noted Date Type 2 diabetes mellitus with diabetic p olyneuropathy 08/29/2022 B12 deficiency 02/25/2022 Primary osteoarthritis of first carpomet acarpal joint of left hand 07/06/2020 Hx of squamous cell carcinoma of skin Ascending aorta enlargement 12/20/2019 Dilated aortic root 12/20/2019 Obesity, Class I, BMI 30.0-34.9 (see act ual BMI) 04/06/2014 Type 2 diabetes mellitus with hemoglobin A1c goal of less than 7.0% 02/03/2014 Overview: ICD-10 update of inactive term Dermatofibroma of right lower leg 2011 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 10/21/2010 Dyslipidemia, goal LDL below 70 documented as of this encounter (statuses as of 07/14/2023) Resolved Problems Problem Noted Date Resolved Date Screening PSA (prostate specific antigen) 202001/17/2021 Encounter for long-term (current) use of medicat ions 06/17/2019 08/29/2022 Overview: Metformin Lip lesion 07/15/2018 10/09/2018 Thrush 06/18/2018 10/09/2018 Supraspinatus tendinitis, left 06/18/2018 1 12/09/2017 Dyslipidemia 06/05/2018 06/17/2019 Asthma, mild persistent 06/12/2015 06/09/20 17 Supraspinatus tendinitis 06/12/2015 017 Asthma, mild persistent 02/09/2015 06/12/20 15 Nevus 10/12/2014 06/12/2015 Overview: 0.5 cm lesion of right earlobe - excisonal biopsy with desruction after 10/07/14 Earlobe lesion 10/07/2014 10/12/2014 Overview: 0.5 cm lesion of right earlobe - excisonal biopsy with desruction after 10/07/14 Deltoid bursitis 06/06/2014 06/12/2015 Overview: right shoulder Dyslipidemia, goal LDL below 70 04/06/2014 06/05/2018 Elevated glucose 02/02/2014 04/06/2014 Dry skin 02/02/2014 06/05/2018 Tendinitis of thumb 02/02/2014 04/06/2014 Overview: Left Bronchitis, complicated 08/03/2013 02/03/20 14 Obesity, Class I, BMI 30.0-34.9 (see actual BMI) 02/11/2012 04/06/2014 LUMBAR DISC DISEASE WITH S1 NERVE ROOT PAIN (RES OLVED) 02/12/2011 08/12/2012 LUMBAR DISC DISEASE WITH S1 NERVE ROOT PAIN 01/1502/12/2011 NEVI OF CHEST WALL AND SCALP S/P REMOVAL 11/2708/12/2012 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 10/21/2010 10/27/2018 II A HLP (goal LDL below 130) 10/21/2010 DVT S/P CHEMO 2000 10/21/2010 08/12/2012 PULMONARY EMBOLUS S/P CHEMO 2000 10/21/2010 08/12/2012 Screening for prostate cancer 10/21/2010 documented as of this encounter (statuses as of 07/14/2023) Immunizations Name Administration Dates Next Due COVID-19 mRNA, LNP-s, No Pre serve, 2-Dose Series ([employer]) 07/05/2022,09/24/2021,02/03/2021,12/19 Hepatitis B, 20+ yrs 02/09/2015,10/07/2014,06/06 Pneumococcal Conjugate Vacci ne, 20-valent ([id number]) 04/10/2023 Pneumococcal Polysaccharide PPV23 (Pneumovax) 06/06/2014 Seasonal Influenza Virus Vac cine, Unspecified Formulation 09/11/2021 Seasonal Influenza, PF, 6 mo ns & Above, IM , (Flulaval) 08/09/2022,08/17/2020,08/31/2019,08/17 Seasonal Influenza, Split, I IV3, With [...] = 0.6 oz pur e alcohol) rarely Food Insecurity Answer Date Recorded Within the past 12 months, y ou worried that your food would run out before you got money to buy more. Never true 04/10/2023 Within the past 12 months, t he food you bought just didn't last and you didn't have money to get more. Never true 04/10/2023 Sex Assigned at Date Recorded Male 04/10/2023 11:00 AM EDT Job Start Date Occupation Industry Not on file Not on file Not on file documented as of this encounter Miscellaneous Notes * Telephone Encounter - Ryan Drake RPh - 07/14/2023 10:41 AM EDTRefused Prescriptions: Disp Refills Losartan Potassium 25 MG Oral Tablet (Coza*90 Tab*0 Sig: TAKE 1TABLET BY MOUTH EVERY MORNINGRefused By: Sang DRAKE for Refusal: Duplicate Request Rosuvastatin Calcium 40 MG Oral Tablet (Cr*90 Tab*0 Sig: TAKE 1 TABLET BY MOUTH EVERY MORNINGRefused By: Sang DRAKE for Refusal: Duplicate Request documented in this encounter Plan of Treatment Upcoming Encounters Date Type Specialty Care Team Description 10/28/2023 Office Visit Family Medicine Hayes Pierre PA-C [address] [place] [address] 11/04/2023 Office Visit Pharmacy [facility] [place] [address] [place] [address] 01/20/2024 Cardiac Studies Cardiac Studies 03/08/2024 Office Visit Cardiology Sylvester Farrell, DO [address] [place] [address] Health Maintenance Due Date Last Done Comments COVID-19 Vaccine (5 - Pfizer series) 08/30/2022 07/05/2022, 09/24/2021, 02/03/2021, Additional history exists Influenza Vaccine (FLU shot) (#1) 2023 08/09/2022, 09/11/2021, 08/17/2020, Additional history exists DTaP,Tdap,and Td Vaccines (2 - Td or Tdap) 08/03/2023 08/03/2013 HbA1c 10/05/2023 04/04/2023, 0 05/2022, 02/13/2022, Additional history exists Albumin/Creatinine Ratio 04/04/2024 023, 08/23/2022, 02/13/2022, Additional history exists B-12 04/04/2024 04/04/2023, 0 05/2022, 02/13/2022, Additional history exists GFR 04/04/2024 04/04/2023, 0 05/2022, 02/13/2022, Additional history exists DIABETES-FOOT EXAM 04/10/2024 04/10/2023, 0 08/16/2021, 07/06/2020, Additional history exists Depression Screening, Annual for Pts 12 and Over 04/10/2024 04/10/2023, 06/17/2016 DIABETES-EYE EXAM 04/11/2024 04/11/2023, , 03/28/2021, Additional history exists COLONOSCOPY-EVERY 3 YRS AGES 18-100 06/12/2024 06/12/2021, 01/27/2018, 11/01/2014, Additional history exists Lipid Panel 04/04/2028 04/04/2023, 100 05/2022, 02/13/2022, Additional history exists Hepatitis B [...] this encounter Medical Devices Implanted Type Area Desk Pen Set Assembler Device Identifier Shelf Expiration Date Model / Serial / Lot Biocomposite Swivelock Suture [place] Implanted:Qty: 2 on 11/18/2018 by Panchito Wright DO at OR [facility] Left: Shoulder 12/17/2019 [id number] / / [id number] documented as of this encounter Visit Diagnoses Diagnosis Dyslipidemia, goal LDL below 70 Other and unspecified hyperlipidemia Ascending aorta enlargement (HCC) Other specified disorders of arteries and arterioles documented in this encounter Care Teams Loom Fixer Supervisor Relationship Specialty Start Date End Date Angelique Hook DO [address] [facility] [place] [address] PCP - General Family Medicine 02/26/22 documented as of this encounter
--- OUTSIDE RECORDS SUMMARY | 2023-12-19 15:40 | External Medical Summary ---
Author Name Unknown Address Unknown Organization [id number]:[facility] [place] [facility] [address] [place] [address] Laboratory Report Ordering Provider Test Date Status KATE MCKEON 10/22/2023 11:38:24 Final Observation Date Value Abnormality Reference (Units ) Status Triglyceride 10/22/2023 11:38:24 78 <=174 ( mg/dL) Final Triglyceride Reference Range s (mg/dL):
<150 Acceptable
150-174 Borderline high
175-499 High
>=500 Very high Cholesterol 10/22/2023 11:38:24 138 <200 (mg /dL) Final Total Cholesterol Reference Ranges (mg/dL):
<200 Desirable
200-239 Borderline high
>=240 High HDL 10/22/2023 11:38:24 38 Below low normal >39 (mg/dL) Final HDL Cholesterol Reference Ra nges (mg/dL):
>=60 High (Desirable)
<50 Low (Undesirable) For Females
<40 Low (Undesirable) For Males NON-HDL CHOLESTEROL 10/22/2023 11:38:24 100 <=159 (mg/dL) Final Non-HDL Cholesterol Referenc e Range (mg/dL):
<100 Target level for high risk ASCVD patient
<130 Optimal for general population
130-159 Near optimal for general population
160-189 Borderline High
190-219 High
>=220 Very High LDL, (calculated) 10/22/2023 11:38:24 84 <= 129 (mg/dL) Final LDL Cholesterol Reference Ra nges (mg/dL):
<70 Target level for high risk ASCVD patient
<100 Optimal for general population
100-129 Near optimal for general population
130-159 Borderline high
160-189 High
>=190 Very high Performing Location [facility] - [address] [facility] [address]
--- OUTSIDE RECORDS SUMMARY | 2023-12-19 15:40 | External Medical Summary ---
Author Name Unknown Address Unknown Organization K01:[facility] [place] [address] [place] [address] Laboratory Report Ordering Provider Test Date Status KATE MCKEON 10/22/2023 11:38:24 Final Observation Date Value Abnormality Reference (Units ) Status BUN 10/22/2023 11:38:24 15 6-20 (mg/dL) Final Creatinine 10/22/2023 11:38:24 0.8 0.6-1.2 (mg/dL) Final Glomerular filtration rate/1.73 sq M.predicted [Volume Rate/Area] in Serum, Plasma or Blood by Creatinine-based formula (CKD-EPI) 10/22/2023 11:38:24 >90 >=60 (mL/min) Final eGFR is calculated based on the CKD-EPI 2020 equation SODIUM 10/22/2023 11:38:24 141 135-146 (m mol/L) Final Potassium 10/22/2023 11:38:24 4.7 3.5-5.1 (m mol/L) Final Cl 10/22/2023 11:38:24 106 98-107 (mm ol/L) Final CO2 10/22/2023 11:38:24 24 22-32 (mmo l/L) Final Anion gap 10/22/2023 11:38:24 11 7-15 (mmol /L) Final Glucose 10/22/2023 11:38:24 110 70-120 (mg /dL) Final Calcium 10/22/2023 11:38:24 9.6 8.4-10.2 ( mg/dL) Final Performing Location [facility] [place] - [address] [place] [address]
--- OUTSIDE RECORDS SUMMARY | 2023-12-19 15:40 | External Medical Summary | Summary of Care ---
Author Name Unknown Organization [facility] Address [address] [place] [address] Phone [phone] Care Team Providers Care Launch Steward Name Role Phone HookAngelique davila Barryvarghese Primary Care Provider [phone] Reason for Visit * Reason Comments Dosage Adjustment In Person (Anticoag Cl inic) Diabetes Management Encounter Details Date Type Department Care Team Description 07/10/2023 Office Visit Pharmacy [place] [facility] Rub[address] [address] [place] [address] [facility] [address] [place] [address] Type 2 diabetes mellitus with hemoglobin A1c goal of less than 7.0% ([facility])* Allergies Active Allergy Reactions Severity Noted Date Comments Lisinopril Cough Medium 08/04/2014 Penicillins 11/30/2010 documented as of this encounter (statuses as of 07/10/2023) Medications Medication Sig Dispensed Refills Start Date [...] OneTouch Ultra Blue In Vitro Strip (Glucose Blood)Indications:Type 2 diabetes mellitus with hemoglobin A1c goal of less than 7.0% (HCC) Test blood sugar up to three times daily as directed 300 Strip 3 08/29/2022 Active OneTouch Delica Plus [id number]:T ype 2 diabetes mellitus with hemoglobin A1c goal of less than 7.0% (HCC) Use to test blood glucose directed 3 times daily daily 300 Each 3 08/29/2022 Active Dulaglutide 1.5 MG/0.5ML Subcutaneous Solution Pen-injector (Trulicity)Indications :Type 2 diabetes mellitus with hemoglobin A1c goal of less than 7.0% (HCC) Inject 1.5 mg under the skin once a week. 6 mL 3 10/31/2022 Active metFORMIN HCl 1000 MG Oral Tablet (Glucophage)Indication s:Type 2 diabetes mellitus with hemoglobin A1c goal of less than 7.0% (HCC) TAKE ONE TABLET BY MOUTH TWICE DAILY WITH MEALS.( MORNING AND EVENING MEALS) 180 Tablet 3 12/09/2022 Active Losartan Potassium 25 MG Oral Tablet (Cozaar)Indications:Dy slipidemia, goal LDL below 70,Ascending aorta enlargement (HCC) TAKE ONE TABLET BY MOUTH EVERY MORNING. 90 Tablet 1 01/21/2023 Active Rosuvastatin Calcium 40 MG Oral Tablet (Crestor)Indications:D yslipidemia, goal LDL below 70,Ascending aorta enlargement (HCC) TAKE 1 TABLET BY MOUTH EVERY MORNING 90 Tablet 1 01/21/2023 Active Jardiance 25 MG Oral Tablet (Empagliflozin)Indicat ions:Type 2 diabetes mellitus with hemoglobin A1c goal of less than 7.0% (HCC) TAKE 1 TABLET BY MOUTH ONCE DAILY 90 Tablet 3 05/10/2023 Active Meloxicam 15 MG Oral TabletIndications:Prim lavell osteoarthritis of first carpometacarpal joint of left hand Take 1 Tablet by mouth in the morning. for pain.. 90 Tablet 3 05/12/2023 Active documented as of this encounter (statuses as of 07/10/2023) Active Problems Problem Noted Date Type 2 [...] as of this encounter (statuses as of 07/10/2023) Resolved Problems Problem Noted Date Resolved Date [...] as of this encounter (statuses as of 07/10/2023) Immunizations Name Administration Dates Next Due COVID-19 mRNA, LNP-s, No Pre serve, 2-Dose Series (Skiin Fundementals) 07/05/2022,09/24/2021,02/03/2021,12/19 Hepatitis B, 20+ yrs 02/09/2015,10/07/2014,06/06 Pneumococcal Conjugate Vacci ne, 20-valent ([id number]) 04/10/2023 Pneumococcal Polysaccharide PPV23 (Pneumovax) 06/06/2014 Seasonal [...] this encounter Progress Notes * Edward Mendoza, [facility] - 07/10/2023 8:05 AM EDT Medication Therapy [facility] - Diabetes [...] from patient documented BG logbook Pre am 158 124 160 140 152 152 129 121 123 136 158 154 128 147 131 127 149 138 211 131 132 Pre am Average 143 Hi 211 Lo 121 Range 90 Hypoglycemia: Does your blood sugar go below 70 mg/dL? No Hyperglycemia symptoms present: none Recent Labs Units 04/04/23 0941 08/23/22 1327 02/13/22 1044 HEMOGLOBIN A1C - [facility] % 6.5* 7.6* 7.1* Recent Labs Units 04/04/23 0941 08/23/22 1327 02/13/22 1044 ESTIMATED GLOMERULAR FILTRATION RATE - [facility] mL/min >90 >90 >90 CREATININE - [facility] mg/dL 0.9 0.9 0.8 HYPERTENSION: Patient on ACEi/ARB: yes BP Readings from Last 3 Encounters: 04/10/23 110/70 01/30/23 112/78 08/29/22 118/78 Blood pressure at goal: yes HYPERLIPIDEMIA: Patient is taking moderate or high intensity statin: yes HEALTH MAINTENANCE REVIEW: Health Maintenance Due Topic Date Due COVID-19 Vaccine (5 - Pfizer series) 08/30/2022 ASSESSMENT & PLAN: ICD-10-CM 1. Type 2 diabetes mellitus with hemoglobin A1c goal of less than 7.0% ([facility]) E11.9 BG Readings - Blood sugars controlled. BG readings remain controlled, averaging 143, last A1c was 6.5%. Medications - Reviewed current regimen, patient is adherent to regimen. No changes at this time. Diet, Exercise, Lifestyle - No significant lifestyle changes since last visit. Patient is agreeable to SMBG 1 time(s) daily. Patient aware to contact clinic if any hypoglycemia before next visit. MEDICATION CHANGES: no change Diabetic Medications: Metformin 1000mg BID with meals Jardiance 25mg daily Trulicity 1.5mg once weekly HEALTH MAINTENANCE INTERVENTIONS: Labs: Ordered & Scheduled: HgA1c and BMP/CMP Immunizations: Up to Date Foot Exam: Up to Date Eye Exam: Up to Date Annual Wellness Visit: N/A FOLLOW UP: Return to clinic in 16 weeks 11/04/2023 Edward Mednoza [facility] Clinical Pharmacist - Laundry Clerk Medication Therapy Management Clinic 07/10/2023, 8:05 AM documented in this encounter Plan of Treatment Upcoming Encounters Date Type Specialty Care Team Description 10/28/2023 Office Visit Family Medicine Hayes Pierre PA-C [address] [facility] [place] [address] 11/04/2023 Office Visit Pharmacy [facility] [address] [address] 01/20/2024 Cardiac Studies Cardiac Studies 03/08/2024 Office Visit Cardiology Sylvester Farrell, DO [address] [place] [address] Health Maintenance Due Date Last Done Comments COVID-19 Vaccine (5 - Pfizer series) 08/30/2022 07/05/2022, 09/24/2021, 02/03/2021, Additional history exists Influenza Vaccine (FLU shot) (#1) 2023 08/09/2022, 09/11/2021, 08/17/2020, Additional history exists DTaP,Tdap,and Td Vaccines (2 - Td or Tdap) 08/03/2023 08/03/2013 HbA1c 10/05/2023 04/04/2023, 100 05/2022, 02/13/2022, Additional history exists Albumin/Creatinine Ratio 04/04/2024 023, 08/23/2022, 02/13/2022, Additional history exists B-12 04/04/2024 04/04/2023, 100 05/2022, 02/13/2022, Additional history exists GFR 04/04/2024 04/04/2023, 100 05/2022, 02/13/2022, Additional history exists DIABETES-FOOT EXAM [...] this encounter Medical Devices Implanted Type Area Fifth Grade Teacher Device Identifier Shelf Expiration Date Model / Serial / Lot Biocomposite Swivelock Suture [place] Implanted:Qty: 2 on 11/18/2018 by Panchito Wright DO at OR [facility] Left: Shoulder 12/17/2019 [id number] / / [id number] documented as of this encounter Visit Diagnoses Diagnosis Type 2 diabetes mellitus with hemoglobin A1c goal of less than 7.0% ([facility])- Primary documented in this encounter Care Teams Launch Steward Relationship Specialty Start Date End Date Angelique Hook DO [address] [facility] [place] [address] PCP - General Family Medicine 02/26/22 documented as of this encounter
--- OUTSIDE RECORDS SUMMARY | 2023-12-19 15:40 | External Medical Summary ---
Author Name Unknown Address Unknown Organization K01:LABORATORY [facility] - [address] [facility] [address] Laboratory Report Ordering Provider Test Date Status KATE MCKEON 10/22/2023 11:38:24 Final Observation Date Value Abnormality Reference (Units ) Status HbA1C 10/22/2023 11:38:24 7.1 Above high normal 4. 0-5.6 (%) Final The use of HbA1c to monitor glycemic status is based on normal hemoglobin and HbA composition. This test should not be used in patients with abnormal hemoglobin that affects the half life of the red blood cell or the in vivo glycation rates. Glucose, estimated average 10/22/2023 11:38:24 157 Above high normal <126 (mg/dL) Fer hurst Performing Location LAB[facility] - [address] [facility] [address] [facility] [address]
--- OUTSIDE RECORDS SUMMARY | 2023-12-19 15:40 | External Medical Summary | Continuity of Care Document ---
Author Name Unknown Organization [facility] [address] [id number] Address [address] [place] [id number] Encounter [facility] [id number] Date(s): 09/04/23 - 09/04/23 [facility] [address] [facility] [address] [address] Encounter Diagnosis Impingement syndrome of right shoulder(Discharge Diagnosis) - 09/04/23 Discharge Disposition: Home or Self Care Attending Physician: MD Milton, Vince Mixon Allergies, Adverse Reactions, Alerts Substance Reaction Severity Status penicillins hives Active Medications aspirin 81 mg oral delayed release tablet Start: 07/08/22 8:31:00 EDT, 1 tab, PO, Daily Start Date: 07/08/22 Status: Ordered Centrum Silver Start: 07/08/22 8:31:00 EDT Start Date: 07/08/22 Status: Ordered Jardiance 25 mg oral tablet Start: 07/08/22 8:31:00 EDT, 1 tab, PO, Daily, Disp# 30 tab Start Date: 07/08/22 Status: Ordered losartan 25 mg oral tablet Start: 07/08/22 8:31:00 EDT, 1 tab, PO, Daily Start Date: 07/08/22 Status: Ordered meloxicam 15 mg oral tablet Start: 07/08/22 8:31:00 EDT, 1 tab, PO, Daily Start Date: 07/08/22 Status: Ordered metFORMIN 1000 mg oral tablet Start: 07/08/22 8:31:00 EDT, 1 tab, PO, bid Start Date: 07/08/22 Status: Ordered rosuvastatin 40 mg oral tablet Start: 07/08/22 8:31:00 EDT, 1 tab, PO, Daily Start Date: 07/08/22 Status: Ordered Trulicity Pen 1.5 mg/0.5 mL subcutaneous solution Start: 09/04/23 13:39:00 EDT Start Date: 09/04/23 Status: Ordered Mental Status 09/04/23 Barriers to Learning one year None evide nt Mandatory Health Literacy Documentation Yes Health Literacy Communication Barriers N ever Primary Language Greek Problem List Condition Confirmation Course Effective Dates Status Health St atus Informant Shoulder pain Confirmed Active Diagnosis Diagnosis Type Effective Dates Health Status Clinical Service Informant Impingement syndrome of right shoulder Discharge Diagnosis 09/04/23 Vital Signs Most recent to oldest [Reference Range]: 1 Height 188 cm (09/04/23 1:38 PM) Patient Weight 103.8 kg (09/04/23 1:38 PM) Body Mass Index 29.37 kg/m2 (09/04/23 1:38 PM) Social History Social History Type Response Smoking Status Never smoked cigaret reji Sex
--- OUTSIDE RECORDS SUMMARY | 2023-12-19 15:40 | External Medical Summary | Summary of Care ---
Author Name Unknown Organization [facility] Address [address] [place] [address] Phone [phone] Care Team Providers Care Deputy County Clerk Name Role Phone Angelique Hook DO Primary Care Provider Un available Reason for Visit * Reason Comments Outpatient Testing Encounter Details Date Type Department Care Team (Late st Contact Info) Description 10/22/2023 11:40 AM EST Laboratory Laboratory [facility] [address] [facility] [place] [phone] [facility] [address] [place] [address] Type II diabetes mellitus with neurological manifestations (HCC); Type 2 diabetes mellitus with diabetic polyneuropathy, without long-term current use of insulin (HCC) Allergies Active Allergy Reactions Criticality Noted [...] Strip 3 08/29/2022 Active OneTouch Delica Plus [id number]:T ype 2 diabetes mellitus with hemoglobin A1c [...] 12/09/2022 Active Jardiance 25 MG Oral Tablet (Empagliflozin)Indicat [...] the morning. 90 Tablet 1 07/14/2023 Active documented as of this encounter (statuses [...] mRNA, LNP-s, No Pre serve, 2-Dose Series (Six Month Smiles) 07/05/2022,09/24/2021,02/03/2021,12/19 Hepatitis B, 20+ yrs 02/09/2015,10/07/2014,06/06 Pneumococcal Conjugate Vacci ne, 20-valent ([id number]) 04/10/2023 Pneumococcal Polysaccharide PPV23 (Pneumovax) 06/06/2014 SEASONAL [...] Visit Family Practice [address] [place] [address] Hayes Pierre PA-C [address] [place] [address] 11/04/2023 8:00 AM EST Office Visit Pharmacy S[address] [place] [address] [facility] [address] [place] [address] 01/20/2024 10:30 AM EST Cardiac Studies Cardiac Studies [address] [place] [address] 03/08/2024 11:30 AM EDT Office Visit Cardiology, [facility] [address] [place] [address] Sylvester Farrell, [address] [place] [address] Pending Results Name Type Priority Associated Diagnoses Date /Time BASIC METABOLIC PANEL Lab Routine 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, without long-term current use of insulin (HCC) 10/22/2023 11:38 AM EST HEMOGLOBIN A1C Lab Routine 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, without long-term current use of insulin (HCC) 10/22/2023 11:38 AM EST LIPID PANEL WITH DIRECT LDL IF TG IS HIGH Lab Routine 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, without long-term current use of insulin (HCC) 10/22/2023 11:38 AM EST Health Maintenance Due Date Last [...] 04/04/2023, 0 05/2022, 02/13/2022, Additional history exists Depression Screening [...] this encounter Medical Devices Implanted Type Area Clay Grinder Device Identifier Shelf Expiration Date Model / Serial / Lot Biocomposite Swivelock Suture [place] Implanted:Qty: 2 on 11/18/2018 by Panchito Wright DO at OR [facility] Left: Shoulder 12/17/2019 [id number] / / [id number] documented as of this encounter Visit Diagnoses Diagnosis Type II diabetes mellitus with neurological manifestations (HCC) Type II or unspecified type diabetes mellitus with neurological manifestations, not stated as uncontrolled Type 2 diabetes mellitus with diabetic polyneuropathy, without long-term current use of insulin (HCC) documented in this encounter Care Teams Deputy County Clerk Relationship Specialty Start Date End Date Angelique Hook DO PCP - General Family Medicine 02/26/22 documented as of this encounter
--- OUTSIDE RECORDS SUMMARY | 2023-12-19 15:40 | External Medical Summary | Summary of Care ---
Author Name Unknown Organization [facility] Address [address] [place] [address] Phone [phone] Care Team Providers Care Vb Net Programmer Name Role Phone Hook, Angelique Barryvarghese Primary Care Provider [phone] Reason for Visit * Reason Onset Date Comments Medication Refill 07/08/2023 Encounter Details Date Type Department Care Team Description [facility] [address] [place] [address] Crystal Oconnell DO [address] [place] [address] Dyslipidemia, goal LDL below 70; Ascending [...] Strip 3 08/29/2022 Active OneTouch Delica Plus [id number] :Type 2 diabetes mellitus with hemoglobin A1c [...] the morning. 90 Tablet 1 07/14/2023 Active Losartan Potassium 25 MG Oral Tablet [...] mRNA, LNP-s, No Pre serve, 2-Dose Series (PolicyStat) 07/05/2022,09/24/2021,02/03/2021,12/19 Hepatitis B, 20+ yrs 02/09/2015,10/07/2014,06/06 Pneumococcal Conjugate Vacci ne, 20-valent ([id number]) 04/10/2023 Pneumococcal Polysaccharide PPV23 (Pneumovax) 06/06/2014 Seasonal [...] Team Description 10/28/2023 Office Visit Family Medicine Haeys Pierre PA-C [address] [facility] [place] [address] 11/04/2023 Office Visit Pharmacy [facility] [address] [facility] [place] [address] 01/20/2024 Cardiac Studies Cardiac Studies 03/08/2024 Office Visit Cardiology Sylvester Farrell, DO [address] [place] [address] Health Maintenance Due Date Last Done Comments [...] Additional history exists Lipid Panel 04/04/2028 04/04/2023, 0 05/2022, 02/13/2022, Additional history exists Hepatitis B [...] this encounter Medical Devices Implanted Type Area Court Worker Device Identifier Shelf Expiration Date Model / Serial / Lot Biocomposite Swivelock Suture [place] Implanted:Qty: 2 on 11/18/2018 by Panchito Wright DO at OR [facility] Left: Shoulder 12/17/2019 [id number] / / [id number] documented as of this encounter Visit Diagnoses Diagnosis Dyslipidemia, goal LDL below 70 Other and unspecified hyperlipidemia Ascending aorta enlargement (HCC) Other specified disorders of arteries and arterioles documented in this encounter Care Teams Vb Net Programmer Relationship Specialty Start Date End Date Angelique Hook DO [address] [facility] [place] [address] PCP - General Family Medicine 02/26/22 documented as of this encounter
[2023-12-19] MEDS ORDERED: LANTUS PER UNIT CHARGE SC ONE (17:30)
[2023-12-19] MEDS: ACETAMINOPHEN 500 MG TAB PO PRN ×2 (19:10→22:46)
[2023-12-19] MEDS: APIXABAN 5 MG TABLET PO SCH (19:11)
[2023-12-19] MEDS ORDERED: LORazepam 1 MG TAB PO PRN (19:47)
[2023-12-19] MEDS ORDERED: LANTUS PER UNIT CHARGE SQ SCH (21:00)
--- OUTSIDE RECORDS SUMMARY | 2023-12-19 23:48 | External Medical Summary | Summary of Care ---
Author Name Unknown Organization [facility] Address [address] [facility] [address] Phone [phone] Care Team Providers Care Upper Shaper Name Role Phone Angelique Hook DO Primary Care Provider [phone] Reason for Referral * Evaluate & Treat - Unlimited Visits (Within 10 days (routine)) - Pending Review Specialty Diagnoses / Procedures Referred By Contact Referred To Contact Cardiac Electrophysiology / Cardiology Diagnoses Persistent atrial fibrillation (HCC) Sylvester Farrell DO [address] [address] [facility] [address] [place] [address] Referral ID Status Reason Start Date Expiration Date Visits Requested Visits Authorized [id number] Pending Review Specialty Services Required 12/19/[phone] Question Answer Referral Priority Within 10 days (routine) Where should this appointment be scheduled? Lacy Comments Unsuccessful cardioversion at [facility] by DR. Farrell on 12/19/2023. Reason for Visit * Reason Onset Date Comments Appointment 12/19/2023 Encounter Details Date Type Department Care Team (Late st Contact Info) Description 12/19/2023 [facility]phone [facility] [address] [place] [address] Sylvester Farrell DO [address] [place] [address] Appointment Allergies Active Allergy Reactions Criticality Noted Date Comments Lisinopril Cough Medium 08/04/2014 Penicillins 11/30/2010 documented as of this encounter (statuses as of 12/19/2023) Medications Medication Sig Dispensed Refills Start Date [...] Strip 3 08/29/2022 Active OneTouch Delica Plus [id number]: Type 2 diabetes mellitus with hemoglobin A1c [...] as of this encounter (statuses as of 12/19/2023) Active Problems Problem Noted Date Diagnosed Date [...] as of this encounter (statuses as of 12/19/2023) Resolved Problems Problem Noted Date Diagnosed Date [...] as of this encounter (statuses as of 12/19/2023) Immunizations Name Administration Dates Next Due COVID-19 mRNA, LNP-s, No Pre serve, 2-Dose Series ([employer]) 07/05/2022,09/24/2021,02/03/2021,12/19 Hepatitis B, 20+ yrs 02/09/2015,10/07/2014,06/06 Pneumococcal Conjugate Vacci ne, 20-valent ([id number]) 04/10/2023 Pneumococcal Polysaccharide PPV23 (Pneumovax) 06/06/2014 Seasonal [...] encounter Miscellaneous Notes * Telephone Encounter - Hair Salgado OSA - 12/19/2023 8:57 AM EST Patient will need a referral for sleep medicine, please place referral. Thank you. * Telephone Encounter - Kyle Canchola RN - 12/19/2023 8:[address] Farrell phoned the clinic and stated the patient was unsuccessfully cardioverted today by him at [facility]. Dr. Farrell is requesting a EP consult with DR. Sung here at [facility] or [place]. Also, requesting a home sleep study. documented in this encounter Plan of Treatment Upcoming Encounters Date Type Department Care Team (Late st Contact Info) Description 01/20/2024 10:30 AM EST Cardiac Studies Cardiac Studies [address] [place] [address] 01/22/2024 8:00 AM EST Imaging [facility] 2nd Floor Cardiology, [place] [address] [facility] [place] [address] Gw, Excess Time Radiology [address] [facility] [place] [address] 03/08/2024 11:30 AM EDT Office Visit Cardiology, [facility] [address] [place] [address] Sylvester Farrell, DO [address] [place] [address] 03/30/2024 8:00 AM EDT Office Visit Pharmacy [address] [place] [address] [facility] [address] [place] [address] 04/29/2024 12:00 PM EDT Office Visit [facility] [address] [place] [address] Hayes Pierre PA-C [address] [place] [address] Scheduled Referrals Name Type Priority Associated Diagnoses Orde r Schedule ELECTROPHYSIOLOGY REFERRAL OP Referral Within 10 days (routine) Persistent atrial fibrillation (HCC) Ordered: 12/19/2023 Health Maintenance Due Date Last Done Comments [...] encounter Medical Devices Implanted Type Area Line Server Device Identifier Shelf Expiration Date Model / Serial / Lot Biocomposite Swivelock Suture [place] Implanted:Qty: 2 on 11/18/2018 by Panchito Wright DO at OR [facility] Left: Shoulder 12/17/2019 [id number] / / [id number] documented as of this encounter Visit Diagnoses Diagnosis Persistent atrial fibrillation (HCC)- Primary Atrial fibrillation documented in this encounter Care Teams Upper Shaper Relationship Specialty Start Date End Date Angelique Hook DO PCP - General Family Medicine 02/26/22 documented as of this encounter
[2023-12-20] MEDS ORDERED: INSULIN ASPART PER UNIT CHARGE SC SCH
[2023-12-20 05:01] LABS: BUN Creatinine Ratio 16.3 (10-20); Calcium 9.1 mg/dl (8.6-10.3); Creatinine Clr Calc Pharmacy 118.6 ml/min; Est GFR (African American) 109.4 ml/min; Est GFR (Non-African American) 94.4 ml/min; Magnesium 1.8 mg/dl (1.7-2.4); Potassium 3.8 mmol/L (3.5-5.1)
[2023-12-20 07:13] LABS: Estimated Average Glucose 154 mg/dl
[2023-12-20] MEDS: INSULIN ASPART PER UNIT CHARGE SC SCH ×4 (08:06→20:35)
[2023-12-20] MEDS: ASPIRIN 81 MG ECTAB PO SCH (08:44)
[2023-12-20] MEDS: METOPROLOL TARTRATE 25 MG TAB PO SCH (08:45)
[2023-12-20] MEDS: ROSUVASTATIN CALCIUM 20 MG TAB PO SCH (08:45)
[2023-12-20] MEDS: APIXABAN 5 MG TABLET PO SCH ×2 (08:45→20:36)
[2023-12-20] MEDS: LOSARTAN POTASSIUM 25 MG TAB PO SCH (08:45)
[2023-12-20] MEDS: DOFETILIDE 125 MCG CAPSULE PO SCH ×2 (08:45→20:36)
[2023-12-20] MEDS ORDERED: LIDOCAINE 4% CREAM 15 GM TUBE EXT PRN (09:08)
--- NOTE | 2023-12-20 12:44 | Cardiology Progress Note ---
Date of Service December 20, 2023 Assessment & Plan (1) Persistent atrial fibrillation: Plan 63-year-old male with persistent atrial fibrillation status post synchronized electrical cardioversion with maintained atrial fibrillation. Now undergoing dofetilide load Heart rate controlled no cardiac symptoms or complaints Initial EKGs reflect tolerance of arrhythmia therapy Plan: Continue dofetilide serial EKGs. Consider repeat synchronized electrical cardioversion versus return in 2 weeks after full load Continue anticoagulation with apixaban, antihypertensive therapies Admission and Anticipated Discharge Date Admission Date: December 19, 2023 Subjective Patient seen and examined. Chart, medications, telemetry reviewed. Remains in atrial fibrillation. No cardiac symptoms or complaints. Irritation at site of prior cardioversion patches Review of Systems Review of Systems: All systems reviewed & are unremarkable except as noted in Subjective Results & Data Vital Signs (Past 12 Hours) Vital Signs Temp Pulse Pulse Resp BP BP Pulse Ox 12/20/23 11:31 36.5 C 83 16 108/72 96 12/20/23 10:02 81 12/20/23 07:46 36.7 C 109 H 21 136/102 H 94 12/20/23 04:00 36.6 C 85 13 93/74 L 97 O2 Del Method 12/20/23 11:31 Room Air 12/20/23 10:02 12/20/23 07:46 Room Air 12/20/23 04:00 Room Air ECG Additional Comments: EKG 12/20/2023 1107 Atrial fibrillation with controlled ventricular sponsor rate, 75 bpm QT corrected 462
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
[2023-12-20] MEDS: CYANOCOBALAMIN (B-12) 500 MCG TABLET PO SCH (17:15)
--- NOTE | 2023-12-20 19:01 | Electrocardiogram Report ---
Test Reason : Blood Pressure : / mmHG Vent. Rate : 077 BPM Atrial Rate : 000 BPM P-R Int : 000 ms QRS Dur : 090 ms QT Int : 374 ms P-R-T Axes : 000 -12 003 degrees QTc Int : 423 ms Atrial fibrillation Abnormal ECG No previous ECGs available Confirmed by Herbie Dutton ([id number]) on 12/20/2023 7:01:46 PM Referred By: Sylvester Farrell Confirmed By:Herbie Dutton
[2023-12-20] MEDS ORDERED: LANTUS PER UNIT CHARGE SC SCH (21:00)
--- NOTE | 2023-12-20 22:34 | Electrocardiogram Report ---
Test Reason : Blood Pressure : / mmHG Vent. Rate : 079 BPM Atrial Rate : 241 BPM P-R Int : 000 ms QRS Dur : 090 ms QT Int : 388 ms P-R-T Axes : 000 002 000 degrees QTc Int : 444 ms Atrial fibrillation Abnormal ECG When compared with ECG of 19-DEC-2023 07:39, No significant change was found Confirmed by Herbie Dutton ([id number]) on 12/20/2023 10:34:12 PM Referred By: Sylvester Farrell Confirmed By:Herbie Dutton
[2023-12-20] MEDS: ACETAMINOPHEN 500 MG TAB PO PRN (22:51)
[2023-12-21 05:07] LABS: BUN Creatinine Ratio 19.2 (10-20); Calcium 9.2 mg/dl (8.6-10.3); Creatinine Clr Calc Pharmacy 121.7 ml/min; Est GFR (African American) 110.6 ml/min; Est GFR (Non-African American) 95.4 ml/min
--- NOTE | 2023-12-21 06:33 | Electrocardiogram Report ---
Test Reason : Blood Pressure : / mmHG Vent. Rate : 075 BPM Atrial Rate : 234 BPM P-R Int : 000 ms QRS Dur : 090 ms QT Int : 414 ms P-R-T Axes : 000 -08 010 degrees QTc Int : 462 ms Atrial flutter Abnormal ECG When compared with ECG of 19-DEC-2023 13:47, No significant change was found Confirmed by Herbie Dutton ([id number]) on 12/21/2023 6:32:48 AM Referred By: Sylvester Farrell Confirmed By:Herbie Dutton
[2023-12-21] MEDS: INSULIN ASPART PER UNIT CHARGE SC SCH ×4 (07:58→21:31)
--- NOTE | 2023-12-21 08:49 | Electrocardiogram Report ---
Test Reason : Blood Pressure : / mmHG Vent. Rate : 091 BPM Atrial Rate : 097 BPM P-R Int : 000 ms QRS Dur : 082 ms QT Int : 410 ms P-R-T Axes : 084 -03 015 degrees QTc Int : 504 ms Atrial flutter Prolonged QT Abnormal ECG When compared with ECG of 20-DEC-2023 11:07, No significant change Confirmed by Guevara Ortiz ([id number]) on 12/21/2023 8:49:21 AM Referred By: Sylvester Farrell Confirmed By:Guevara Ortiz
[2023-12-21] MEDS: ASPIRIN 81 MG ECTAB PO SCH (10:16)
[2023-12-21] MEDS: ROSUVASTATIN CALCIUM 20 MG TAB PO SCH (10:16)
[2023-12-21] MEDS: METOPROLOL TARTRATE 25 MG TAB PO SCH (10:16)
[2023-12-21] MEDS: APIXABAN 5 MG TABLET PO SCH ×2 (10:17→21:30)
[2023-12-21] MEDS: LOSARTAN POTASSIUM 25 MG TAB PO SCH (10:17)
[2023-12-21] MEDS ORDERED: DOFETILIDE 125 MCG CAPSULE PO ONE (11:06)
[2023-12-21] MEDS: CYANOCOBALAMIN (B-12) 500 MCG TABLET PO SCH (11:25)
[2023-12-21] MEDS: DOFETILIDE 125 MCG CAPSULE PO SCH ×2 (11:36→21:30)
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
--- NOTE | 2023-12-21 13:29 | Electrocardiogram Report ---
Test Reason : Blood Pressure : / mmHG Vent. Rate : 096 BPM Atrial Rate : 258 BPM P-R Int : 000 ms QRS Dur : 092 ms QT Int : 382 ms P-R-T Axes : 000 000 015 degrees QTc Int : 482 ms Atrial flutter Prolonged QT Abnormal ECG When compared with ECG of 20-DEC-2023 22:41, No significant change Confirmed by Guevara Ortiz ([id number]) on 12/21/2023 1:29:16 PM Referred By: Sylvester Farrell Confirmed By:Guevara Ortiz
--- NOTE | 2023-12-21 13:31 | Electrocardiogram Report ---
Test Reason : Blood Pressure : / mmHG Vent. Rate : 077 BPM Atrial Rate : 075 BPM P-R Int : 000 ms QRS Dur : 098 ms QT Int : 426 ms P-R-T Axes : 077 002 017 degrees QTc Int : 482 ms Atrial flutter Prolonged QT Abnormal ECG When compared with ECG of 21-DEC-2023 09:25, No significant change Confirmed by Guevara Ortiz ([id number]) on 12/21/2023 1:31:36 PM Referred By: Sylvester Farrell Confirmed By:Guevara Ortiz
--- NOTE | 2023-12-21 14:05 | Cardiology Progress Note ---
Date of Service December 21, 2023 Assessment & Plan (1) Persistent atrial fibrillation: Plan 63-year-old male with persistent atrial fibrillation status post synchronized electrical cardioversion with maintained atrial fibrillation. Now undergoing dofetilide load Heart rate controlled no cardiac symptoms or complaint EKG last evening with mild QT prolongation. Repeat this morning QT corrected 482 Plan: Continue dofetilide at reduced dose 250 mcg twice per day follow serial EKGs Consider repeat synchronized electrical cardioversion versus return in 2 weeks after full load Continue anticoagulation with apixaban, antihypertensive therapies Management and treatment of atrial fibrillation discussed in detail with patient and . Multiple questions answered including questions regarding possible pulmonary vein isolation ablation Admission and Anticipated Discharge Date Admission Date: December 19, 2023 Physical Exam Physical Exam: General: no acute distress and stated age Eyes: conjunctiva are pink and non-injected, sclera clear Neck: normal jugular venous pulse, no hepatojugular reflux Chest: normal shape and normal respiratory effort Lungs: clear to auscultation and percussion Cardiac Exam: -Irregular rhythm, no murmurs, rubs, or gallops, no jugular venous distention Abdomen: abdomen soft, non-tender, no abnormal masses and no hepatosplenomegaly Musculoskeletal: no gait disturbance, no weakness Extremities: no edema and no cyanosis Neuro:awake, conversant, follows commands, no focal motor deficits Psych: appropriate affect and insight. Results & Data Vital Signs (Past 12 Hours) Vital Signs Temp Pulse Pulse Resp BP Pulse Ox O2 Del Method 12/21/23 08:00 36.7 C 90 16 121/75 98 Room Air 12/21/23 08:00 90 12/21/23 04:00 36.8 C 91 H 15 127/81 97 Room Air ECG Additional Comments: 21-DEC-2023 13:13:09 [facility] ROUTINE RETRIEVAL Atrial flutter Prolonged QT, QT corrected 482 abnormal ECG When compared with ECG of 21-DEC-2023 09:25, No significant change
[2023-12-21] MEDS: LANTUS PER UNIT CHARGE SC SCH (21:31)
[2023-12-22 05:06] LABS: BUN Creatinine Ratio 16.3 (10-20); Est GFR (African American) 101.5 ml/min; Est GFR (Non-African American) 87.6 ml/min; Magnesium 2.1 mg/dl (1.7-2.4); Potassium 3.8 mmol/L (3.5-5.1)
[2023-12-22] MEDS: INSULIN ASPART PER UNIT CHARGE SC SCH ×2 (07:41→12:01)
[2023-12-22] MEDS: LANTUS PER UNIT CHARGE SC SCH (07:46)
[2023-12-22] MEDS: CYANOCOBALAMIN (B-12) 500 MCG TABLET PO SCH (08:02)
[2023-12-22] MEDS: LOSARTAN POTASSIUM 25 MG TAB PO SCH (08:02)
[2023-12-22] MEDS: APIXABAN 5 MG TABLET PO SCH (08:02)
[2023-12-22] MEDS: ASPIRIN 81 MG ECTAB PO SCH (08:02)
[2023-12-22] MEDS: DOFETILIDE 125 MCG CAPSULE PO SCH (08:02)
[2023-12-22] MEDS: ROSUVASTATIN CALCIUM 20 MG TAB PO SCH (08:03)
[2023-12-22] MEDS: METOPROLOL TARTRATE 25 MG TAB PO SCH (08:03)
--- NOTE | 2023-12-22 10:54 | Cardiology Progress Note ---
Date of Service December 22, 2023 Assessment & Plan (1) Persistent atrial fibrillation: Plan 63-year-old male with persistent atrial fibrillation status post unsuccessful DCCV 12/19/2023. Subsequently admitted for Tikosyn loading. Dose reduced to 250 mcg twice daily due to prolonged QT interval. QT interval has improved per follow-up ECGs. Recommend continue dofetilide 250 mcg twice daily in addition to beta-alessandro. Transition metoprolol to tartrate to succinate formulation Continue apixaban uninterrupted. Consider repeat synchronized external direct- current cardioversion after 2 weeks of antiarrhythmic treatment. Outpatient cardiology follow-up in 1 week. No further inpatient cardiac testing or intervention recommended at this time. Admission and Anticipated Discharge Date Admission Date: December 19, 2023 Subjective Patient seen and examined at the bedside. Feeling well from a cardiovascular perspective. Denies chest pain or palpitations. Telemetry reveals atrial fibrillation/flutter in the 70s to 80s. Repeat ECG performed this a.m. demonstrates atrial fibrillation at 71 bpm. Corrected QT interval is 445 ms. Review of Systems Review of Systems: All systems reviewed & are unremarkable except as noted in Subjective Physical Exam Constitutional: well nourished; no acute distress Respiratory: no respiratory distress, no labored breathing and no retractions Cardiovascular: Rate/Rhythm: + irregularly irregular Heart Sounds: normal S1 and normal S2; no murmur Vessels: no JVD and no carotid bruit Extremities: no edema Neurologic: CN's II-XI intact bilaterally and moves all extremities; no focal motor deficits Results & Data Vital Signs (Past 12 Hours) Vital Signs Temp Pulse Pulse Resp BP BP Pulse Ox 12/22/23 10:00 12/22/23 09:05 97 H 12 12/22/23 08:04 16 106/78 97 12/22/23 08:04 96 H 17 12/22/23 08:00 89 17 12/22/23 08:00 36.8 C 12/22/23 07:00 93 H 19 12/22/23 06:00 85 14 12/22/23 05:00 82 15 12/22/23 04:00 78 7 L 12/22/23 03:57 36.7 C 90 15 121/71 96 12/22/23 03:00 77 12 12/22/23 02:00 92 H 18 12/22/23 01:00 83 15 12/22/23 00:00 95 H 14 12/21/23 23:56 36.7 C 93 H 15 98/77 L 97 12/21/23 23:56 109 H 12/21/23 23:00 116 H 20 O2 Del Method O2 Del Method 12/22/23 10:00 Room Air 12/22/23 09:05 12/22/23 08:04 12/22/23 08:04 12/22/23 08:00 12/22/23 08:00 12/22/23 07:00 12/22/23 06:00 12/22/23 05:00 12/22/23 04:00 12/22/23 03:57 Room Air 12/22/23 03:00 12/22/23 02:00 12/22/23 01:00 12/22/23 00:00 12/21/23 23:56 Room Air 12/21/23 23:56 12/21/23 23:00 Laboratory Results Comprehensive Metabolic Panel 12/22/23 Range/Units 04:31 Sodium 139 (136-145) mmol/L Potassium 3.8 (3.5-5.1) mmol/L Chloride 108 H (98-107) mmol/L Carbon Dioxide 26 (21-32) mmol/L BUN 15 (6-23) mg/dl Creatinine 0.92 (0.6-1.4) mg/dl Glucose 113 H (70-99(Fasting)) mg/dl Calcium 9.0 (8.6-10.3) mg/dl Intake and Output 12/21/23 12/22/23 12/22/23 22:59 06:59 14:59 Intake Total 1000 / 1750 350 / 1750 Output Total 1250 / 3000 850 / 3000 Balance -250 / -1250 -500 / -1250 Intake: Oral 1000 / 1750 350 / 1750 Output: Urine 1250 / 3000 850 / 3000 Other: Weight 102.3 kg Weight Measurement Method Built in [facility]
--- NOTE | 2023-12-22 11:14 | Pharmacy Report ---
Pharmacy Glycemic Short Note 2 - Date of Service December 22, 2023 - Glycemic Short BSG Results (Last 24 hours): 12/21/23 12/21/23 12/21/23 11:26 15:51 20:41 Glucose POC Glucose 172 H 106 H 107 H 12/22/23 12/22/23 12/22/23 04:31 07:32 10:58 Glucose 113 H POC Glucose 117 H 152 H OUTPATIENT ANTIDIABETIC REGIMEN: * Trulicity 0.75 mg weekly, empagliflozin 25 mg daily * A1c pending ASSESSMENT: 12/22 * BSGs well controlled over last 24 hours while tolerating a diet * Fasting BSG at goal this AM (FBS 117) with 0 units basal insulin on board. Will hold basal insulin orders at this time as fasting has been controlled several days without the admin of basal. * Post-prandial BSGs well controlled with current Novolog CR/CF 2 * Mr. Beaulieu is admitted for initiation of dofetilide after remaining in A. fib following cardioversion attempt. Will begin novolog with weight based parameters between stress of 1 and 2. * Lantus to be added if BSGs trend upward, will add scale. * Overnight checks. PLAN FOR INPATIENT GLYCEMIC CONTROL: * Hold outpatient oral diabetes medications * Basal insulin * none at this time * Bolus insulin * NovoLog per scale ACHS or Q6hrs while NPO * Goal Range: Low 120 mg/dL - High 160 mg/dL * Correction Factor: 40 mg/dL/unit * Nutritional / Prandial insulin per carb ratio of 1 unit per 20 grams CHO consumed
--- NOTE | 2023-12-22 12:13 | Electrocardiogram Report ---
Test Reason : Blood Pressure : / mmHG Vent. Rate : 093 BPM Atrial Rate : 288 BPM P-R Int : 000 ms QRS Dur : 086 ms QT Int : 394 ms P-R-T Axes : 000 -11 002 degrees QTc Int : 489 ms Atrial flutter Prolonged QT Abnormal ECG When compared with ECG of 21-DEC-2023 13:13, No significant change Confirmed by Guevara Ortiz ([id number]) on 12/22/2023 12:13:14 PM Referred By: Sylvester Farrell Confirmed By:Guevara Ortiz
--- NOTE | 2023-12-22 12:26 | Post Anesthesia Assessment ---
Date of Service December 22, 2023 Post Sedation Assessment Vital Signs Temp Pulse Pulse Resp BP BP Pulse Ox 12/22/23 10:00 12/22/23 09:05 97 H 12 12/22/23 08:04 16 106/78 97 12/22/23 08:04 96 H 17 12/22/23 08:00 89 17 12/22/23 08:00 36.8 C 12/22/23 07:00 93 H 19 12/22/23 06:00 85 14 12/22/23 05:00 82 15 12/22/23 04:00 78 7 L 12/22/23 03:57 36.7 C 90 15 121/71 96 12/22/23 03:00 77 12 12/22/23 02:00 92 H 18 12/22/23 01:00 83 15 12/22/23 00:00 95 H 14 12/21/23 23:56 36.7 C 93 H 15 98/77 L 97 12/21/23 23:56 109 H 12/21/23 23:00 116 H 20 12/21/23 22:00 87 20 12/21/23 21:00 80 20 12/21/23 20:43 78 19 95 12/21/23 20:43 105/69 12/21/23 20:00 36.8 C 95 H 17 105/96 96 12/21/23 19:00 95 H 20 12/21/23 18:00 93 H 22 12/21/23 17:00 86 21 12/21/23 16:59 79 12/21/23 16:04 117/74 12/21/23 16:04 81 14 12/21/23 16:00 70 20 12/21/23 16:00 36.5 C 82 16 117/74 97 12/21/23 15:00 71 20 12/21/23 14:00 80 16 12/21/23 13:00 88 16 O2 Del Method O2 Del Method 12/22/23 10:00 Room Air 12/22/23 09:05 12/22/23 08:04 12/22/23 08:04 12/22/23 08:00 12/22/23 08:00 12/22/23 07:00 12/22/23 06:00 12/22/23 05:00 12/22/23 04:00 12/22/23 03:57 Room Air 12/22/23 03:00 12/22/23 02:00 12/22/23 01:00 12/22/23 00:00 12/21/23 23:56 Room Air 12/21/23 23:56 12/21/23 23:00 12/21/23 22:00 12/21/23 21:00 12/21/23 20:43 12/21/23 20:43 12/21/23 20:00 Room Air 12/21/23 19:00 12/21/23 18:00 12/21/23 17:00 12/21/23 16:59 12/21/23 16:04 12/21/23 16:04 12/21/23 16:00 12/21/23 16:00 Room Air 12/21/23 15:00 12/21/23 14:00 12/21/23 13:00 Recovery Score Activity: Moves 4 extremities Respiration: Deep Breath/Cough Circulation: +/-20% PreAnes Value Consciousness: Fully Awake Oxygen Saturation: > 92% On Room Air Post Anesthesia Score: 10 Discharge Sedation Level of Care: Phase I Post Sedation Plan On clinical assessment, the patient appears to have tolerated the sedation without complications. Patient is recovering as anticipated. Patient will continue to be monitored by nursing and may be discharged when sedation discharge criteria are met per below protocol. Upon Completions of procedure up to 15 minutes continue every 5 minute vital signs and the P.A.R. score; then discharge to a Phase I or Fast Track to Phase II per the following guidelines: * Discharge Patient to appropriate Phase II area if PAR is 8 or greater or return to pre- procedure baseline. The post - procedure orders will be as directed. * If PAR score is less than 8 or not return to pre-procedure baseline then patient will follow Phase I monitoring till PAR is reached for Phase II. The Phase I may be done in procedure room or may call to secure a Phase I area. * If naloxone or flumazenil are used for reversal, hold in Phase I for continued monitoring from when last reversal dose was given for a minimum of 60 minutes or longer pending the nurse and/or physician discretion of patient condition before discharge to Phase II. Please call the Sedation Physician to re-evaluate and complete post-note for discharge to Phase II area. Do NOT discharge from procedure sedation or Phase 1 until post- sedation evaluation note is complete by procedure /sedation MD Sedation Discharge Instructions to be given to the patient at discharge to home.
--- NOTE | 2023-12-22 12:29 | Electrocardiogram Report ---
Test Reason : Blood Pressure : / mmHG Vent. Rate : 071 BPM Atrial Rate : 535 BPM P-R Int : 000 ms QRS Dur : 104 ms QT Int : 410 ms P-R-T Axes : 000 -10 002 degrees QTc Int : 445 ms Atrial flutter Abnormal ECG When compared with ECG of 21-DEC-2023 23:33, HR has decreased by 22 bpm Otherwise no significant change Confirmed by Guevara Ortiz ([id number]) on 12/22/2023 12:29:15 PM Referred By: Sylvester Farrell Confirmed By:Guevara Ortiz
--- NOTE | 2023-12-22 13:32 | Discharge Summary ---
Date of Service December 22, 2023 Admission HPI Per Admitting Provider Mr Beaulieu had recently been found to be in atrial fibrillation and a recent routine appointment. He has been on Eliquis since prescribed on 11/11/2023, along with metoprolol. Arrangements were made for elective direct-current cardioversion with him having been on uninterrupted anticoagulation for over 4 weeks. History is notable for mild enlargement of the proximal ascending aorta, 4.[address] performed January,, 4.3 cm on echocardiogram December,, and he is due for a repeat CT scan in January, Admission Exam Per Admitting Provider General: Alert, oriented. No acute distress Skin: No noted rashes or bruises Psych: Appropriate mood and affect Neuro: No gross deficits HEENT: NC/AT CV: Irregular rate and rhythm Resp: Breath sounds clear bilaterally, no increased effort of breathing. Abdomen: Soft, nontender, nondistended. No guarding. No organomegaly appreciated. Extremities: No edema in lower extremities bilaterally. Principal Diagnosis Persistent atrial fibrillation Discharge Exam Constitutional: Alert oriented x 3; not in distress. Respiratory: normal respiratory effort, lungs clear to auscultation, no wheeze, rales, rhonchi. Normal insp/exp effort, no accessory muscle use Cardiovascular: Irregular, no murmur, no edema Vessels: no JVD or carotid bruit Chest: area of burn on pacer pards side Abdomen: normal bowel sounds, soft, nontender, no hepatosplenomegaly Musculoskeletal: no cyanosis or clubbing, extremities motor strength 5/5 Skin: no rashes, warm and dry normal turgor Neurologic: PERRL, EOMI, accommodation nl, no face palsy, no dysarthria CN's II- XI intact bilaterally and moves all extremities Psychiatric: A+Ox3, euthymic affect Discharge Data Allergies Allergy/AdvReac Type Severity Reaction Status Date / Time Penicillins AdvReac Severe RASH A Verified 12/10/23 09:34 CHILD Consultations 12/19/23 13:07 Consult Hospitalist Routine Procedures Performed Operation Date: 12/19/23 07:15 Actual Procedures p Cardioversion - Sylvester Farrell DO Hospital Course (1) Persistent atrial fibrillation: (2) DMII (diabetes mellitus, type 2): (3) HLD (hyperlipidemia): (4) Hx of squamous cell carcinoma: (5) Osteoarthritis, hand: (6) B12 deficiency: Plan Pt is a 63yoM with PMHx significant for persistent atrial fibrillation, DMII, HLD, colon cancer s/p partial colectomy and chemotherapy, Hx of SCC of lower lip, B12 deficiency and OA of the hands admitted for direct-current cardioversion of his atrial fibrillation. Persistent Atrial Fibrillation Per pt, diagnosed at a routine pcp appt about a month ago Followed up with cardiology and is presenting for cardioversion s/p unsuccessful cardioversion on 12/19/23 Following unsuccessful electrical cardioversion; he was admitted to telemetry floor for further management During the hospitalization, patient was started on dofetilide 500 mg twice daily. The dose was decreased to 250 mg twice daily due to QT prolongation At discharge, he remained in atrial fibrillation. Cardiology recommended Dofetilide 250 mg twice daily. Metoprolol tartrate was changed to metoprolol succinate Anticoagulation with Eliquis 5mg BID Patient to follow-up with cardiology and PCP Type II DMII Was on sliding scale during hospitalization At discharge, placed on home medication No other medication changes were done. Please note the above document was generated using voice recognition software. It may contain grammatical, syntax or spelling errors. Any formal questions or concerns about the content, text or information contained within the body of this dictation should be directly addressed to the provider for clarification Total Time Total Time Spent Total Time Spent (In Minutes): 35 Total Time Includes: Examination of the Patient, Discharge Planning, Medication Reconciliation, Communication With Other Providers and Other Discharge Plan Discharge Items Patient Disposition: Home - Self-Care Reason For Visit: ATRIAL FIBRILLATION Discharge Diagnosis: Atrial fibrillation Activity: Resume your previous activity Non-emergency contact: Primary Care Provider Call non-emergency contact if: you have any medication questions and your symptoms worsen Follow-up/Referrals: Sylvester Farrell DO [Cartography/Mapping Technician] - (The Cardiology office will contact you for a follow up appointment.) Crystal Oconnell DO [Primary Care Provider] - (Date & Time 12/29/2023 5:20 PM Provider Hayes Pierre PA-C Department [facility], [place] ) Diet: Regular Addtl Attending Provider Instructions: You were admitted to the hospital due to atrial fibrillation. Electric cardioversion was unsuccessful. You were restarted on following medication: 1) Dofetilide 250 mcg twice a day. This is an antiarrhythmic medication. It causes QT prolongation. Please make sure your primary care doctor is aware of this medication before prescribing you any other new medication which can cause QT prolongation as well. The metoprolol tartate that you are taking at home is changed to metoprolol succinate at the same dose. A new prescription has been sent to the pharmacy. An appointment will be set up with your primary care doctor for sometime next week. Cardiology will also set up follow-up for you in 2 weeks for possible repeat cardioversion. Pending Studies at Discharge: No Stand-Alone Forms: My [facility], Smoking Cessation Medications and DC Order Prescriptions: New dofetilide 250 mcg capsule 250 mcg PO BID Qty: 60 0RF metoprolol succinate 25 mg Tablet Extended Release 24 Hr 25 mg PO QAM 30 Days Qty: 30 0RF Continued MULTIPLE VITAMINS W/ MINERALS (MULTI COMPLETE) 1 CAP capsule 1 tab PO DAILY Qty: 0 meloxicam 15 mg Tablet 15 mg PO DAILY PRN (Reason: Pain) metformin 1,000 mg Tablet 1,000 mg PO BID losartan 25 mg Tablet 25 mg PO QAM rosuvastatin 40 mg Tablet 40 mg PO QAM Eliquis 5 mg Tablet 5 mg PO BID Jardiance 25 mg Tablet 25 mg PO QAM Trulicity 1.5 mg/0.5 mL Pen Injector 1.5 mg SUBCUT WK Rx Instructions: wednesdays aspirin 81 mg Capsule 81 mg PO DAILY Discontinued metoprolol tartrate 25 mg Tablet 25 mg PO QAM Discharge Orders: Discharge Order (Routine); Ordered 12/22/23 Ordered By: Jim Diaz/Other Patient Handouts: Managing Type 2 Diabetes Admission Data Admit Date/Time: 12/19/23 08:38 Attending Provider: Sylvester Farrell Admit Provider: Sylvester Farrell Primary Care Provider: Crystal Oconnell Other Providers: Deena Diaz
--- NOTE | 2023-12-22 13:36 | Hospitalist Progress Note ---
Date of Service December 22, 2023 Assessment & Plan (1) Persistent atrial fibrillation: (2) DMII (diabetes mellitus, type 2): (3) HLD (hyperlipidemia): (4) Hx of squamous cell carcinoma: (5) Osteoarthritis, hand: (6) B12 deficiency: Plan Pt is a 63yoM with PMHx significant for persistent atrial fibrillation, DMII, HLD, colon cancer s/p partial colectomy and chemotherapy, Hx of SCC of lower lip, B12 deficiency and OA of the hands admitted for direct-current cardioversion of his atrial fibrillation. Persistent Atrial Fibrillation Per pt, diagnosed at a routine pcp appt about a month ago Followed up with cardiology and is presenting for cardioversion s/p unsuccessful cardioversion on 12/19/23 Following unsuccessful electrical cardioversion; he was admitted to telemetry floor for further management During the hospitalization, patient was started on dofetilide 500 mg twice daily. The dose was decreased to 250 mg twice daily due to QT prolongation At discharge, he remained in atrial fibrillation. Cardiology recommended Dofetilide to 50 mg twice daily. Metoprolol tartrate was changed to metoprolol succinate Anticoagulation with Eliquis 5mg BID Patient to follow-up with cardiology and PCP Type II DMII Was on sliding scale during hospitalization At discharge, placed on home medication No other medication changes were done. Time spent evaluating patient, direct bedside care, chart review, placing orders, interpretation of diagnostic studies, discussion with consultants, patient, and family members, as well as other required patient management activities is 50 minutes Please note the above document was generated using voice recognition software. It may contain grammatical, syntax or spelling errors. Any formal questions or concerns about the content, text or information contained within the body of this dictation should be directly addressed to the provider for clarification Admission and Anticipated Discharge Date Admission Date: December 19, 2023 Subjective Patient seen and examined at bedside. Comfortable; not in distress. Denies fever, chills, chest pain, shortness of breath, abdominal pain or urinary symptoms. No significant overnight events Physical Exam Physical Exam: Constitutional: Alert oriented x 3; not in distress. Respiratory: normal respiratory effort, lungs clear to auscultation, no wheeze, rales, rhonchi. Normal insp/exp effort, no accessory muscle use Cardiovascular: Irregular, no murmur, no edema Vessels: no JVD or carotid bruit Chest: area of burn on pacer pards side Abdomen: normal bowel sounds, soft, nontender, no hepatosplenomegaly Musculoskeletal: no cyanosis or clubbing, extremities motor strength 5/5 Skin: no rashes, warm and dry normal turgor Neurologic: PERRL, EOMI, accommodation nl, no face palsy, no dysarthria CN's II- XI intact bilaterally and moves all extremities Psychiatric: A+Ox3, euthymic affect Results & Data Results & Data Vital Signs (Past 12 Hours) Vital Signs Temp Pulse Pulse Resp BP BP Pulse Ox 12/22/23 13:00 83 19 12/22/23 12:00 78 21 127/52 L 12/22/23 12:00 36.7 C 97 12/22/23 11:00 79 19 12/22/23 10:00 69 14 12/22/23 10:00 12/22/23 09:05 97 H 12 12/22/23 08:04 16 106/78 97 12/22/23 08:04 96 H 17 12/22/23 08:00 89 17 12/22/23 08:00 36.8 C 12/22/23 07:00 93 H 19 12/22/23 06:00 85 14 12/22/23 05:00 82 15 12/22/23 04:00 78 7 L 12/22/23 03:57 36.7 C 90 15 121/71 96 12/22/23 03:00 77 12 12/22/23 02:00 92 H 18 O2 Del Method O2 Del Method 12/22/23 13:00 12/22/23 12:00 12/22/23 12:00 Room Air 12/22/23 11:00 12/22/23 10:00 12/22/23 10:00 Room Air 12/22/23 09:05 12/22/23 08:04 12/22/23 08:04 12/22/23 08:00 12/22/23 08:00 12/22/23 07:00 12/22/23 06:00 12/22/23 05:00 12/22/23 04:00 12/22/23 03:57 Room Air 12/22/23 03:00 12/22/23 02:00
--- NOTE | 2023-12-23 08:41 | Cardioversion ---
Date of Service December 19, 2023 Electrical Cardioversion Rpt Electrical Cardioversion Report Operation Date: 12/19/23 07:15 Procedure Preprocedure diagnosis: Persistent atrial fibrillation Postprocedure diagnosis: Unsuccessful direct-current cardioversion Direct-current cardioversion procedure: After informed consent was obtained a timeout was performed the patient was sedated at the assistance of the anesthesia service. The patient received a total of 3 countershocks of 200 J, 250 J, and 300 J respectively which were unsuccessful and the patient remained in atrial fibrillation. Plan: Continue anticoagulation with Eliquis and metoprolol. Will discuss options including consideration of rate control and anticoagulation or considering antiarrhythmic therapy. Senior Systems Engineer Sylvester Farrell DO Railway Switch Operator none Estimated Blood Loss 0 Findings Consistent with Post-Op Diagnosis Anesthesia Type MAC Complications none
[2023-12-23] MEDS ORDERED: METOPROLOL SUCC 25MG EXT REL TAB PO SCH (09:00)
== END 2023-12-22 14:49 | disposition home or self-care (01) | DRG 310 ==
LOC: CC 06:12 → 1E 08:38